=== PATIENT | female | born 1950 | race Caucasian/White ===

== ENCOUNTER 2018-06-25 20:09 | Emergency (ER) | payer OTHER, BC ==
--- NOTE | 2018-06-25 21:24 | RAD REPORT ---
EXAM DESCRIPTION: RAD - Shoulder Left 2 View - 06/25/2018 9:08 pm CLINICAL HISTORY: fall;Pain<Reason For Exam>fall;Pain COMPARISON: No comparisons<Comparisons> TECHNIQUE: Internal and external rotation views of the left shoulder were obtained. FINDINGS: There is no fracture or dislocation. AC joint degenerative changes are present. No AC join t separation suspected. Punctate calcifications seen in the acromial humeral joint space. No acute or suspicious findings. IMPRESSION: Negative two-view left shoulder examination for acute finding.
--- NOTE | 2018-06-25 21:24 | RAD REPORT ---
EXAM DESCRIPTION: RAD - Knee Left 3 View - 06/25/2018 9:08 pm CLINICAL HISTORY: fall;Pain<Reason For Exam>fall;Pain COMPARISON: No comparisons<Comparisons> FINDINGS: No fracture, dislocation or periosteal reaction.Trace amount of joint effusion seen. Media l compartment narrowing seen with moderate size marginal spurs. No soft tissue abnormality. IMPRESSION: Degenerative change and minimal joint effusion as detailed. No acute bone or joint findi ng. Clinical concerns for internal derangement or occult bony injury could be further assessed with MR im aging.
--- NOTE | 2018-06-25 21:43 | RAD REPORT ---
EXAM DESCRIPTION: RAD - Scapula Left - 06/25/2018 9:23 pm CLINICAL HISTORY: PAIN<Reason For Exam>PAIN COMPARISON: Shoulder Left 2 View dated 06/25/2018<Comparisons>Shoulder Left 2 View dated 06/25/2018 TECHNIQUE: AP scapula and scapular Y-views obtained. FINDINGS: No dislocation of the humeral head. Moderate severity degenerative change involves the und ersurface of the acromion. No gross fracture deformity in the body of the scapula. No rib or lung par enchymal acute finding. IMPRESSION: Degenerative changes of the acromion are present. No fracture of the scapula confirmed. If the patient has continued, unexplained symptoms localizing to the scapula, CT imaging could be per formed.
--- NOTE | 2018-06-25 22:07 | ER ---
Nurse's Notes [facility] Name: Rachel Oconnor Age: 68 yrs Sex: Female : 1950 Arrival Date: 06/25/2018 Time: 20:11 Bed 25 Private MD: Diagnosis: Contusion of left knee;Pain in left shoulder;Other slipping, tripping and stumbling and falls Presentation: 06/25 20:15 Presenting complaint: Patient states: I fell at home from standing and hurt my left la1 knee and the left part of lower neck, pt denies LOC. Transition of care: patient was not received from another setting of care. Onset of symptoms was June 25, 2018. Risk Assessment: Do you want to hurt yourself or someone else? Patient reports no desire to harm self or others. Initial Sepsis Screen: Does the patient meet any 2 criteria? No. Patient's initial sepsis screen is negative. Does the patient have a suspected source of infection? No. Patient's initial sepsis screen is negative. Care prior to arrival: None. 20:15 Method Of Arrival: Wheelchair la1 20:15 Acuity: PHIL 3 la1 Triage Assessment: 20:20 General: Appears uncomfortable, obese, Behavior is calm, cooperative, appropriate for fc age. Pain: Complains of pain in back and left leg Quality of pain is described as aching, throbbing, Pain began suddenly, Is continuous, Aggravated by increased activity, repositioning, weight bearing. EENT: No deficits noted. Neuro: Level of Consciousness is awake, alert, obeys commands, Oriented to person, place, time, situation. Cardiovascular: No deficits noted. Respiratory: No deficits noted. GI: No deficits noted. : No deficits noted. Derm: Skin is pink, warm \T\ dry. Musculoskeletal: Circulation, motion, and sensation intact. Capillary refill < 3 seconds, Range of motion: limited in left knee. Injury Description: Abrasion sustained to left knee. Historical: - Allergies: 20:16 Clindamycin; la1 20:16 COFFEE; la1 20:16 Ibuprofen; la1 20:16 Kiwi (Actinidia Chinensis); la1 20:16 PENICILLINS; la1 20:16 Relafen; la1 20:16 Soy; la1 - PMHx: 20:16 Anxiety; Back pain; GERD; High Cholesterol; Hypertension; Thyroid problem; la1 - Immunization history:: Adult Immunizations up to date. - Social history:: Smoking status: Patient/guardian denies using tobacco. - Ebola Screening: : No symptoms or risks identified at this time. Screenin:20 Abuse screen: Denies threats or abuse. Nutritional screening: No deficits noted. fc Tuberculosis screening: No symptoms or risk factors identified. Fall Risk None identified. Assessment: 20:35 Reassessment: No changes from previously documented assessment. Patient and/or family fc updated on plan of care and expected duration. Pain level reassessed. Patient is alert, oriented x 3, equal unlabored respirations, skin warm/dry/pink. see triage assessment. Luis PA in to see and examine pt. 20:45 Reassessment: residential service technician at bedside doing xrays that were ordered. fc 21:10 Reassessment: No changes from previously documented assessment. Patient and/or family fc updated on plan of care and expected duration. Pain level reassessed. Patient is alert, oriented x 3, equal unlabored respirations, skin warm/dry/pink. Pt going to radiology dept to have different view of scapula done. 21:26 Reassessment: Pt has returned. fc 22:00 Reassessment: No changes from previously documented assessment. Patient and/or family fc updated on plan of care and expected duration. Pain level reassessed. Patient is alert, oriented x 3, equal unlabored respirations, skin warm/dry/pink. Pt pending results. Vital Signs: 20:17 BP 127 / 77; Pulse 81; Resp 16; Temp 97.2; Pulse Ox 100% on R/A; la1 22:26 BP 125 / 74; Pulse 71; Resp 18; Temp 98.0(O); Pulse Ox 98% on R/A; Pain 4/10; fc ED Course: 20:11 Patient arrived in ED. ds1 20:16 Triage completed. la1 20:17 Arm band placed on left wrist. la1 20:20 Patient has correct armband on for positive identification. Bed in low position. Call fc light in reach. 20:20 No provider procedures requiring assistance completed. Patient did not have IV access fc during this emergency room visit. 20:24 Luis Fleming PA is PHCP. cp 20:24 Benjy Gonzalez MD is Attending Physician. cp 21:09 XRAY Knee LEFT 3 view In Process Unspecified. EDMS 21:09 XRAY Shoulder LEFT 2 view In Process Unspecified. EDMS 21:15 XRAY Scapula LEFT In Process Unspecified. EDMS 22:06 Judd Marcano MD is Referral Physician. cp 22:26 Knee immobilizer applied on left knee. fc Administered Medications: No medications were administered Outcome: 22:07 Discharge ordered by MD. cp 22:27 Discharged to home via wheelchair, with family. fc 22:27 Condition: good 22:27 Discharge instructions given to patient, family, Instructed on discharge instructions, follow up and referral plans. medication usage, Demonstrated understanding of instructions, follow-up care, medications, splint care, Prescriptions given X 1. 22:43 Patient left the ED. fc Signatures: Dispatcher [employer] Karol Cano RN RN fc Sanford, Demi ds1 Edis Kuo RN RN la1 Luis Fleming, PA PA cp
--- NOTE | 2018-06-25 22:08 | EDPHYS ---
Physician Documentation [facility] Name: Rachel Oconnor Age: 68 yrs Sex: Female : 1950 Arrival Date: 06/25/2018 Time: 20:11 Bed 25 Private MD: ED Physician Benjy Gonzalez HPI: 06/25 20:35 This 68 yrs old Female presents to ER via Wheelchair with complaints of Knee cp Injury, Fall Injury. 20:35 Details of fall: The patient fell from an upright position, while walking. cp 20:35 Onset: The symptoms/episode began/occurred today. cp 20:35 Associated injuries: The patient sustained left knee, abrasion, painful injury, left cp scapular area and left shoulder, painful injury. Severity of symptoms: in the emergency department the symptoms have improved, moderately, patient reports taking [place] prior to arrival for pain. Historical: - Allergies: 20:16 Clindamycin; la1 20:16 COFFEE; la1 20:16 Ibuprofen; la1 20:16 Kiwi (Actinidia Chinensis); la1 20:16 PENICILLINS; la1 20:16 Relafen; la1 20:16 Soy; la1 - PMHx: 20:16 Anxiety; Back pain; GERD; High Cholesterol; Hypertension; Thyroid problem; la1 - Immunization history:: Adult Immunizations up to date. - Social history:: Smoking status: Patient/guardian denies using tobacco. - Ebola Screening: : No symptoms or risks identified at this time. ROS: 20:40 Constitutional: Negative for body aches, chills, fever, poor PO intake. cp 20:40 Eyes: Negative for injury, pain, redness, and discharge. cp 20:40 ENT: Negative for drainage from ear(s), ear pain, difficulty swallowing, difficulty handling secretions. 20:40 Cardiovascular: Negative for chest pain, edema, palpitations. 20:40 Respiratory: Negative for cough, shortness of breath, wheezing. 20:40 Abdomen/GI: Negative for abdominal pain, nausea, vomiting, and diarrhea. 20:40 Back: Negative for decreased range of motion, pain at rest, pain with movement. 20:40 MS/extremity: Positive for pain, of the left knee and left shoulder and left scapula, Negative for deformity, paresthesias. 20:40 Skin: Positive for abrasion(s), of the anterior aspect left knee. 20:40 Neuro: Negative for altered mental status, headache, loss of consciousness, syncope, near syncope, visual changes, weakness. 20:40 All other systems are negative. Exam: 20:45 Constitutional: The patient appears in no acute distress, alert, awake, cp non-diaphoretic, non-toxic, well developed, well nourished. 20:45 Head/Face: Normocephalic, atraumatic. Eyes: Pupils equal round and reactive to light, cp extra-ocular motions intact. Lids and lashes normal. Conjunctiva and sclera are non-icteric and not injected. Cornea within normal limits. Periorbital areas with no swelling, redness, or edema. ENT: Nares patent. No nasal discharge, no septal abnormalities noted. Tympanic membranes are normal and external auditory canals are clear. Oropharynx with no redness, swelling, or masses, exudates, or evidence of obstruction, uvula midline. Mucous membranes moist. 20:45 Neck: C-spine: vertebral tenderness, is not appreciated, crepitus, is not appreciated, ROM/movement: is normal, is supple, without pain, no range of motions limitations, no nuchal rigidity. 20:45 Chest/axilla: Inspection: normal, Palpation: is normal, no crepitus, no tenderness. 20:45 Cardiovascular: Rate: normal, Rhythm: regular, Edema: is not appreciated, JVD: is not appreciated. 20:45 Respiratory: the patient does not display signs of respiratory distress, Respirations: normal, no use of accessory muscles, no retractions, no splinting, no tachypnea, labored breathing, is not present, Breath sounds: are clear throughout, no decreased breath sounds, no stridor, no wheezing. 20:45 Abdomen/GI: Inspection: abdomen appears normal, Bowel sounds: active, all quadrants, Palpation: abdomen is soft and non-tender, in all quadrants. 20:45 Back: pain, that is mild, of the left scapular area, ROM is normal, vertebral tenderness, is not appreciated. 20:45 Musculoskeletal/extremity: Joints: All joints are normal except the left knee displays painful range of motion, swelling, tenderness, abrasion. 20:45 Neuro: Orientation: to person, place \T\ time. Mentation: lucid, able to follow commands, Cerebellar function: is grossly normal, Motor: moves all fours, strength is normal, Sensation: no obvious gross deficits. Vital Signs: 20:17 BP 127 / 77; Pulse 81; Resp 16; Temp 97.2; Pulse Ox 100% on R/A; la1 22:26 BP 125 / 74; Pulse 71; Resp 18; Temp 98.0(O); Pulse Ox 98% on R/A; Pain 4/10; fc Procedures: 22:30 Splinting: Splint applied to left knee using knee immobilizer, applied by nurse. cp Examined by me, post splint application: neurovascular intact, Patient tolerated well. 22:30 Crutch training provided to patient and/or family. Return demonstration given. cp MDM: 20:24 Patient medically screened. cp 21:00 Differential diagnosis: abrasion, closed head injury, contusion, fracture, multiple cp trauma. 22:05 Data reviewed: vital signs, nurses notes, radiologic studies, plain films, and as a cp result, I will discharge patient. 22:05 Test interpretation: by ED physician or midlevel provider: plain radiologic studies. cp Counseling: I had a detailed discussion with the patient and/or guardian regarding: the historical points, exam findings, and any diagnostic results supporting the discharge/admit diagnosis, radiology results, to return to the emergency department if symptoms worsen or persist or if there are any questions or concerns that arise at home. ED course: VSS. Xrays negative for acute fracture. Will discharge to home for continued monitoring. 06/25 20:33 Order name: XRAY Knee LEFT 3 view; Complete Time: 21:49 cp 06/25 21:49 Interpretation: Report reviewed. cp 06/25 20:33 Order name: XRAY Shoulder LEFT 2 view; Complete Time: 21:49 cp 06/25 21:50 Interpretation: Report reviewed. cp 06/25 20:55 Order name: XRAY Scapula LEFT; Complete Time: 21:49 cp 06/25 21:50 Interpretation: Report reviewed. cp 06/25 21:59 Order name: Knee Immobilizer; Complete Time: 22:26 cp Administered Medications: No medications were administered Disposition: 06/25/18 22:07 Discharged to Home. Impression: Contusion of left knee, Pain in left shoulder, Other slipping, tripping and stumbling and falls. - Condition is Stable. - Discharge Instructions: Contusion, Shoulder Pain, Knee Pain. - Prescriptions for Cyclobenzaprine 10 mg Oral Tablet - take 1 tablet by ORAL route every 8 hours As needed no driving while taking medication; 20 tablet. - Medication Reconciliation Form, Thank You Letter, Antibiotic Education, Prescription Opioid Use form. - Follow up: Judd Marcano MD; When: 2 - 3 days; Reason: Recheck today's complaints. - Problem is new. - Symptoms have improved. Addendum: 06/27/2018 02:47 Co-signature as Attending Physician, Benjy Gonzalez MD I agree with the assessment and t w4 plan of care. Attestation: The patient's history, exam findings, diagnostics, and a summary of any interventions or procedures was reviewed in detail with Luis POLANCO. Signatures: Dispatcher [employer] EDKarol Arredondo RN RN Edis Kuo RN RN la1 Luis Fleming PA PA cp Wadley, Terrence, MD MD tw4 Corrections: (The following items were deleted from the chart) 06/25 22:26 21:59 Crutches ordered. cp 22:43 22:07 06/25/2018 22:07 Discharged to Home. Impression: Contusion of left knee; Pain in fc left shoulder; Other slipping, tripping and stumbling and falls. Condition is Stable. Forms are Medication Reconciliation Form, Thank You Letter, Antibiotic Education, Prescription Opioid Use. Follow up: Judd Marcano; When: 2 - 3 days; Reason: Recheck today's complaints. Problem is new. Symptoms have improved. cp
== END 2018-06-25 22:43 | disposition home or self-care (01) ==
LOC: ER 20:09
DX: S80.02XA Contusion of left knee, initial encounter (principal); M25.512 Pain in left shoulder; W01.0XXA Fall on same level from slipping, tripping and stumbling without subsequent striking against object, initial encounter; Y93.01 Activity, walking, marching and hiking; M54.9 Dorsalgia, unspecified; K21.9 Gastro-esophageal reflux disease without esophagitis; I10 Essential (primary) hypertension; E78.00 Pure hypercholesterolemia, unspecified; E07.9 Disorder of thyroid, unspecified; Z88.6 Allergy status to analgesic agent; Z88.1 Allergy status to other antibiotic agents; Z88.0 Allergy status to penicillin; Z88.8 Allergy status to other drugs, medicaments and biological substances; Z91.018 Allergy to other foods; F41.9 Anxiety disorder, unspecified; E66.9 Obesity, unspecified
CPT/HCPCS: 73010; 99283

== ENCOUNTER 2019-08-30 16:45 | Emergency (ER) | payer OTHER, BC ==
[2019-08-30] MEDS ORDERED: LIDOCAINE 1% MPF 5 ML VIAL ONE (18:17)
[2019-08-30] MEDS ORDERED: BUPIVACAINE 0.5% PF 10 ML VIAL ONE (18:17)
--- NOTE | 2019-08-30 19:57 | ER ---
Nurse's Notes [facility] Name: Rachel Oconnor Age: 69 yrs Sex: Female : 1950 Arrival Date: 08/30/2019 Time: 16:46 Bed 27 Private MD: Diagnosis: Laceration without foreign body of thumb without damage to nail-right Presentation: 08/30 17:06 Presenting complaint: Patient states: "I cut my right thumb with a chicken bone". aa5 Bleeding controlled, band-aid in place. Transition of care: patient was not received from another setting of care. Complicating Factors: There are no complicating factors for this patient. Onset of symptoms was August 30, 2019. Risk Assessment: Do you want to hurt yourself or someone else? Patient reports no desire to harm self or others. Initial Sepsis Screen: Does the patient meet any 2 criteria? No. Patient's initial sepsis screen is negative. Does the patient have a suspected source of infection? No. Patient's initial sepsis screen is negative. Care prior to arrival: None. 17:06 Acuity: PHIL 4 aa5 17:06 Method Of Arrival: Ambulatory aa5 Historical: - Allergies: 17:07 Clindamycin; aa5 17:07 Ibuprofen; aa5 17:07 PENICILLINS; aa5 17:07 Soy; aa5 17:07 Relafen; aa5 17:07 Kiwi (Actinidia Chinensis); aa5 17:07 COFFEE; aa5 17:07 shrimp; aa5 - PMHx: 17:07 Anxiety; Back pain; GERD; High Cholesterol; Hypertension; Thyroid problem; aa5 - Immunization history:: Last tetanus immunization: unknown. - Social history:: Smoking status: Patient/guardian denies using tobacco. - Ebola Screening: : No symptoms or risks identified at this time. Screenin:00 Abuse screen: Denies threats or abuse. Denies injuries from another. Nutritional sg screening: No deficits noted. Tuberculosis screening: No symptoms or risk factors identified. Never had TB. Fall Risk None identified. Assessment: 18:00 General: Appears in no apparent distress. well groomed, well developed, well nourished, sg Behavior is calm, cooperative, appropriate for age. Pain: Complains of pain in palmar aspect of proximal phalanx of right thumb Quality of pain is described as tender, throbbing. Neuro: Level of Consciousness is awake, alert, obeys commands, Oriented to person, place, time. Cardiovascular: Capillary refill is brisk in bilateral fingers Patient's skin is warm and dry. Chest pain is denied. Respiratory: Airway is patent Respiratory effort is even, unlabored, Respiratory pattern is regular, symmetrical. GI: No signs and/or symptoms were reported involving the gastrointestinal system. : No signs and/or symptoms were reported regarding the genitourinary system. EENT: No signs and/or symptoms were reported regarding the EENT system. Derm: Skin is pink, warm \\T\\ dry. Musculoskeletal: Circulation, motion, and sensation intact. Range of motion: intact in all extremities. Injury Description: Laceration sustained to palmar aspect of proximal phalanx of right thumb is contaminated, superficial, 0.5 to 2.5 cm long, not bleeding, is bleeding a small amount. 18:53 Reassessment: Patient appears in no apparent distress at this time. pt right hand sg placed into iodine/chlorhexidine/NS at this time. 20:21 Reassessment: Patient appears in no apparent distress at this time. mg2 Vital Signs: 17:08 BP 110 / 62; Pulse 60; Resp 16 S; Temp 97.8(TE); Pulse Ox 97% on R/A; Weight 113.4 kg aa5 (R); Height 5 ft. 8 in. (172.72 cm) (R); Pain 4/10; 19:30 BP 108 / 78; Pulse 61; Resp 18; Pulse Ox 100% ; mg2 20:21 BP 110 / 78; Pulse 65; Resp 18; Temp 98; Pulse Ox 100% on R/A; mg2 17:08 Body Mass Index 38.01 (113.40 kg, 172.72 cm) aa5 ED Course: 16:46 Patient arrived in ED. as 17:06 Triage completed. aa5 17:06 Arm band placed on. aa5 18:00 No provider procedures requiring assistance completed. Wound care: to laceration sg located on palmar aspect of proximal phalanx of right thumb was soaked in NS.BETADINE,CHLOROHEX Patient tolerated well. 18:11 Luis Fleming PA is PHCP. cp 18:11 Salo Prince MD is Attending Physician. cp 18:16 Soler, Uriel, RN is Primary Nurse. sg 20:21 Patient has correct armband on for positive identification. mg2 20:21 Patient did not have IV access during this emergency room visit. Dressings: mg2 non-adherent dressing x 1 palmar aspect of proximal phalanx of right thumb. Administered Medications: 20:06 Drug: Tetanus-Diphtheria Toxoid Adult 0.5 ml {[employer]: [employer]. Exp: mg2 03/30/2021. Lot #: [id number]. } Route: IM; Site: left deltoid; 20:21 Follow up: Response: No adverse reaction; Medication administered at discharge. mg2 Outcome: 19:57 Discharge ordered by MD. cp 20:22 Discharged to home ambulatory. mg2 20:22 Condition: stable 20:22 Discharge instructions given to patient, Instructed on discharge instructions, follow up and referral plans. medication usage, wound care, Demonstrated understanding of instructions, follow-up care, medications, wound care, Prescriptions given X 1. 20:22 Patient left the ED. mg2 Signatures: Uriel Soler, RN RN Iram Eden Audri, RN RN aa5 Luis Fleming, SHERRI PA cp Jacobo Hardin, LADI RN mg2
--- NOTE | 2019-08-30 19:57 | EDPHYS ---
Physician Documentation [facility] Name: Rachel Oconnor Age: 69 yrs Sex: Female : 1950 Arrival Date: 08/30/2019 Time: 16:46 Bed 27 Private MD: ED Physician Salo Prince HPI: 08/30 18:16 This 69 yrs old Female presents to ER via Ambulatory with complaints of cp Laceration - Thumb. 18:16 The patient or guardian reports a laceration, dirty. cp 18:16 The complaints affect the proximal phalanx right thumb. Context: resulted from sharp cp edge of cooked chicken bone. Onset: The symptoms/episode began/occurred just prior to arrival. Associated signs and symptoms: Pertinent negatives: cyanosis distally, decreased sensation distally. Severity of symptoms: in the emergency department the symptoms have improved, bleeding controlled. Historical: - Allergies: 17:07 Clindamycin; aa5 17:07 Ibuprofen; aa5 17:07 PENICILLINS; aa5 17:07 Soy; aa5 17:07 Relafen; aa5 17:07 Kiwi (Actinidia Chinensis); aa5 17:07 COFFEE; aa5 17:07 shrimp; aa5 - PMHx: 17:07 Anxiety; Back pain; GERD; High Cholesterol; Hypertension; Thyroid problem; aa5 - Immunization history:: Last tetanus immunization: unknown. - Social history:: Smoking status: Patient/guardian denies using tobacco. - Ebola Screening: : No symptoms or risks identified at this time. ROS: 18:30 Constitutional: Negative for body aches, chills, fever, poor PO intake. cp 18:30 Eyes: Negative for injury, pain, redness, and discharge. cp 18:30 ENT: Negative for drainage from ear(s), ear pain, sore throat, difficulty swallowing, difficulty handling secretions. 18:30 Cardiovascular: Negative for chest pain, palpitations. 18:30 MS/extremity: Positive for pain, of the right thumb, Negative for decreased range of motion, deformity, paresthesias. 18:30 Skin: Positive for laceration(s), of the right thumb. 18:30 All other systems are negative. Exam: 18:35 Constitutional: The patient appears in no acute distress, alert, awake, non-toxic, well cp developed, well nourished. 18:35 Head/Face: Normocephalic, atraumatic. cp 18:35 Musculoskeletal/extremity: ROM: full active range of motion, in the right thumb, Perfusion: the extremity is normally perfused throughout, Sensation intact. 18:35 Skin: injury, laceration(s), the wound is approximately 1.5 cm(s), of the proximal phalanx right thumb, that can be described as contaminated, no foreign body, linear, without bleeding. Vital Signs: 17:08 BP 110 / 62; Pulse 60; Resp 16 S; Temp 97.8(TE); Pulse Ox 97% on R/A; Weight 113.4 kg aa5 (R); Height 5 ft. 8 in. (172.72 cm) (R); Pain 4/10; 19:30 BP 108 / 78; Pulse 61; Resp 18; Pulse Ox 100% ; mg2 20:21 BP 110 / 78; Pulse 65; Resp 18; Temp 98; Pulse Ox 100% on R/A; mg2 17:08 Body Mass Index 38.01 (113.40 kg, 172.72 cm) aa5 MDM: 18:13 Patient medically screened. cp 18:40 Differential diagnosis: open fracture, closed fracture, retained foreign body. cp 19:55 Data reviewed: vital signs, nurses notes. cp 19:55 Counseling: I had a detailed discussion with the patient and/or guardian regarding: the cp historical points, exam findings, and any diagnostic results supporting the discharge/admit diagnosis, the need for outpatient follow up, a family practitioner, to return to the emergency department if symptoms worsen or persist or if there are any questions or concerns that arise at home. Response to treatment: the patient's symptoms have markedly improved after treatment. ED course: VSS. Laceration cleaned and irrigated with dressing applied. Will discharge to home for continued monitoring. Did not suture wound due to nature of injury. Administered Medications: 20:06 Drug: Tetanus-Diphtheria Toxoid Adult 0.5 ml {Licensed Mortician: [employer]. Exp: mg2 03/30/2021. Lot #: [id number]. } Route: IM; Site: left deltoid; 20:21 Follow up: Response: No adverse reaction; Medication administered at discharge. mg2 Disposition: 08/31 07:59 Co-signature as Attending Physician, Salo Prince MD I agree with the assessment and kdr plan of care. Disposition: 08/30/19 19:57 Discharged to Home. Impression: Laceration without foreign body of thumb without damage to nail - right. - Condition is Stable. - Discharge Instructions: Laceration Care, Adult. - Prescriptions for Doxycycline Hyclate 100 mg Oral Tablet - take 1 tablet by ORAL route every 12 hours; 20 tablet. - Medication Reconciliation Form, Thank You Letter, Antibiotic Education, Prescription Opioid Use form. - Follow up: Private Physician; When: 2 - 3 days; Reason: Wound Recheck. - Problem is new. - Symptoms have improved. Signatures: Salo Prince MD MD kdr Swetha Pascual RN RN aa5 Luis Fleming PA PA cp Jacobo Hardin RN RN mg2 Corrections: (The following items were deleted from the chart) 08/30 19:58 19:57 08/30/2019 19:57 Discharged to Home. Impression: Laceration without foreign body cp of thumb without damage to nail. Condition is Stable. Forms are Medication Reconciliation Form, Thank You Letter, Antibiotic Education, Prescription Opioid Use. Follow up: Private Physician; When: 2 - 3 days; Reason: Wound Recheck. Problem is new. Symptoms have improved. cp 20:22 19:58 08/30/2019 19:57 Discharged to Home. Impression: Laceration without foreign body mg2 of thumb without damage to nail - right. Condition is Stable. Forms are Medication Reconciliation Form, Thank You Letter, Antibiotic Education, Prescription Opioid Use. Follow up: Private Physician; When: 2 - 3 days; Reason: Wound Recheck. Problem is new. Symptoms have improved. cp
[2019-08-30] MEDS ORDERED: TETANUS & DIPHTHERIA TOX,ADULT 0.5 ML VIAL ONE (19:59)
[2019-08-30 20:31] VITALS: O2SAT 100
[2019-08-30 20:32] VITALS: BP 110/78; TEMP 98
--- OUTSIDE RECORDS SUMMARY | 2019-09-04 01:52 | XMS REPORT ---
:1950 Author Organization eClinicalWorks Care Team Providers Name Role Phone Naveen David Provider Role Unavailable Allergies, Adverse Reactions, Alerts Substance Reaction Event Type clindamycin Info Not Available Drug Allergy PCN Info Not Available Drug Allergy Relaform Info Not Available Drug Allergy Colchicine Info Not Available Drug Allergy Carafate Info Not Available Drug Allergy Problems Problem Type Condition Code Onset Dates Condition Status Assessment Hemorrhagic prepatellar bursitis M70.42 Active of left knee Problem Hemorrhagic prepatellar bursitis M70.42 Active of left knee Problem Contusion of left knee, initial S80.02XA Active encounter Problem Contusion of left knee, subsequent S80.02XD Active encounter Assessment Pain in joint of left knee M25.562 Active Assessment Contusion of left knee, subsequent S80.02XD Active encounter Problem Pain in joint of left knee M25.562 Active Medications Medication Code Code Instructions Start End Status Dosage System Date Date Lisinopril [facility] 91866945897 10 MG Oral Active not defined Simvastatin [facility] 65529415021 20 MG Oral Active not defined Fluticasone [facility] 23427275509 50 MCG/ACT Nasal Active not Propionate defined Metoprolol [facility] 53367387825 50 MG Oral Active not Succinate ER defined Trospium [facility] 77190898209 20 MG Oral Active not Chloride defined Pomeroy [facility] 02473051424 10-325 MG Orally Active 1 tablet every 6 hrs as needed Furosemide [facility] 93003303890 20 MG Oral Active not defined Celecoxib [facility] 49316740981 200 MG Oral Active not defined Tizanidine HCl ND 40221805340 4 MG Oral Active not defined Xyzal Allergy [facility] 21952459859 5 MG Orally Once Active 1 tablet 24HR a day in the evening Hydrocodone-Monster [facility] 95511828426 7.5-325 MG Oral Active not taminophen defined Results No Known Results Summary Purpose eClinicalWorks Submission
--- OUTSIDE RECORDS SUMMARY | 2019-09-04 01:52 | XMS REPORT ---
[...] Condition Code Onset Dates Condition Status Assessment Contusion of left knee, subsequent S80.02XD Active encounter Problem Contusion of left knee, subsequent S80.02XD Active encounter Problem Hemorrhagic prepatellar bursitis M70.42 Active of left knee Problem Localized edema R60.0 Active Assessment Pain in joint of left knee M25.562 Active Problem Pain in joint of left knee M25.562 Active Problem Contusion of left knee, initial S80.02XA Active encounter Medications Medication Code Code Instructions Start End Status Dosage System Date Date Clayton [facility] 65441778356 10-325 MG Orally Active 1 tablet every 6 hrs as needed Hydrocodone-Monster [facility] 23062545465 7.5-325 MG Oral Active not taminophen defined Fluticasone [facility] 10397409569 50 MCG/ACT Nasal Active not Propionate defined Furosemide [facility] 35190970162 20 MG Oral Active not defined Xyzal Allergy [facility] 88288759043 5 MG Orally Once Active 1 tablet 24HR a day in the evening Lisinopril ND 71036458674 10 MG Oral Active not defined Metoprolol ND 40946218244 50 MG Oral Active not Succinate ER defined Trospium ND 83113770749 20 MG Oral Active not Chloride defined Celecoxib [facility] 44056434375 200 MG Oral Active not defined Tizanidine HCl ND 70164122336 4 MG Oral Active not defined Simvastatin ND 72100969928 20 MG Oral Active not defined Results No Known Results Summary Purpose eClinicalWorks Submission
--- OUTSIDE RECORDS SUMMARY | 2019-09-04 01:52 | XMS REPORT ---
:1950 Author Organization [employer] Care Team Providers Name Role Phone David Hodge Provider Role Unavailable Allergies, Adverse Reactions, Alerts Substance Reaction Event Type clindamycin Info Not Available Drug Allergy PCN Info Not Available Drug Allergy Relaform Info Not Available Drug Allergy Colchicine Info Not Available Drug Allergy Carafate Info Not Available Drug Allergy Problems Problem Type Condition Code Onset Dates Condition Status Problem Pain in joint of left knee M25.562 Active Problem Contusion of left knee, initial S80.02XA Active encounter Assessment Pain in joint of left knee M25.562 Active Assessment Contusion of left knee, initial S80.02XA Active encounter Medications Medication Code Code Instructions Start End Status Dosage System Date Date Hydrocodone-Monster [facility] 58952664718 7.5-325 MG Oral Active not taminophen defined Xyzal Allergy [facility] 35817747327 5 MG Orally Once Active 1 tablet 24HR a day in the evening Celecoxib [facility] 31358274803 200 MG Oral Active not defined Trospium [facility] 08233364234 20 MG Oral Active not Chloride defined Lisinopril [facility] 21483767061 10 MG Oral Active not defined Bluemont [facility] 26075194176 10-325 MG Orally Active 1 tablet every 6 hrs as needed Furosemide [facility] 03505599758 20 MG Oral Active not defined Fluticasone [facility] 38074154874 50 MCG/ACT Nasal Active not Propionate defined Metoprolol [facility] 05820625761 50 MG Oral Active not Succinate ER defined Tizanidine HCl [facility] 99926738261 4 MG Oral Active not defined Simvastatin ND 23811472350 20 MG Oral Active not defined Results No Known Results Summary Purpose eClinicalWorks Submission
--- OUTSIDE RECORDS SUMMARY | 2019-09-04 01:52 | XMS REPORT ---
:1950 Author Organization [facility] Address [address] [place] [address] Care Team Providers Name Role Phone Unavailable Unavailable Unavailable Payers Payer Name Policy Type Policy Number Effective Date Expiration Date Problems This patient has no known problems. Allergies, Adverse Reactions, Alerts Allergy Name Allergy Status Severity Reaction(s) Onset Inactive Treating Comments Type Date Date Clinician soy DA Active U 2009-12 isoflav 00:00:0 0 Shellfish DA Active U 2009-12 00:00:0 0 clindamycin DA Active U 2009-12 00:00:0 0 ramipril DA Active U 2009-12 00:00:0 0 nabumetone DA Active U 2009-12 00:00:0 0 penicillin G DA Active U 2009-12 00:00:0 0 milk FA Active U 2009-12 00:00:0 0 kiwi FA Active U 2009-12 00:00:0 0 coffee FA Active U 2009-12 ( arabica) 00:00:0 0 CHOCOLATE DA Active U 2009-12 00:00:0 0 EGGS DA Active U 2009-12 00:00:0 0 MELONS DA Active U 2009-12 00:00:0 0 PEARS DA Active U 2009-12 00:00:0 0 Medications This patient has no known medications. Results Test Description Test Time Test Comments Text Results Atomic Results Result Comments IMMUNOGLOBULIN E 2019-08-17 13:10:00 Test Item Value Reference Range Comments IMMUNOGLOBULIN E (test code=IGE) 90 IU/mL 6-495 Performed At: [facility] [id number] Sanjai MD Ph:[phone] - XR [id number] 12:16:00 Name: MATTHEW HAYESland : 1950 Age/S: 69 / F [address] Unit #: [id number] Loc: [place] [address] Phys: Agus Che MD Acct: [id number] Dis Date: Status: REG CLI PHONE #: [phone] Exam Date: 08/14/2019 1047 FAX #: Reason: J45.998 EXAMS: CPT: [id number] XR ESOPHAGUS 47836 Fluoro Time: 234 DAP (Gy m2): Air Kerma (mGy): 34.30 EXAMINATION: - XR ESOPHAGUS. LOCATION: S17. HISTORY : J45.998, asthma, occasional difficulty with food. COMPARISON: None. TECHNIQUE: Single and double contrast upper GI was performed with barium oral contrast and overhead spot films were obtained. Fluoroscopic time: 234 seconds. 34.30 mGy. FINDINGS: Senior Net Architect image of the chest appears unremarkable with atherosclerosis involving aortic arch. The esophagus is unremarkable in course andcaliber. Esophageal mucosal pattern is unremarkable. Gastroesophageal junction is normally positioned. The visualized proximal stomach appears unremarkable. Esophageal peristalsis demonstrates tertiary contractions involving distal esophagus. Possible small hiatal hernia. Gastroesophageal reflux was not seen during the procedure. Contrast residual was noted in the hypopharynx. 13 mm barium pill flowed smoothly into the stomach. IMPRESSION: Contrast residual noted in hypopharynx. Tertiary contractions involving distal esophagus. Possible small hiatal hernia. at 1216 Reported and signed by: Tanisha Fischer M.D. CC: Agus Che MD; Sagar Shelley MD PAGE 1 Signed Report Name: MATTHEW HAYESland : 1950 Age/S: 69/ F [address] Unit #: [id number] Loc: [place] [address] Phys: Agus Che MD Acct: [id number] Dis Date: Status: REG CLI PHONE #: [phone] Exam Date: 08/14/2019 1047 FAX #: Reason: J45.998 EXAMS: CPT: [id number] XR ESOPHAGUS 74600 Fluoro Time: 234DAP (Gy m2): Air Kerma (mGy): 34.30 <Continued> Technologist: Any Charles RT(R) Trnscb Date /Time: 08/14/2019 (7506) [email or web address] Orig Print D/T: S: 08/14/2019 (2856) PAGE 2 Signed Report- XR CHEST 2 [id number] 11:13:00 Name: MATTHEW HAYES : 1950 Age/S: 69 / F [address] Unit #: [id number] Loc: [place] [address] Phys: Agus Che MD Acct: [id number] Dis Date: Status: REG CLI PHONE #: [phone] Exam Date: 08/14/2019 1038 FAX #: Reason: J45.998 EXAMS: CPT: [id number] XR CHEST 2 V 39691 Fluoro Time: DAP (Gy m2): Air Kerma (mGy): EXAMINATION: - XR CHEST 2 V. LOCATION: S17. HISTORY: J45.998. COMPARISON: None. FINDINGS:Examination limited due to patient body habitus. Cardiac silhouette/Mediastinal contour: Within normal limits. Atherosclerotic calcification of aortic arch. Lungs: Nofocal consolidation. No pleural effusion. Biapical thickening/scarring. Osseous Structures: Degenerative changes of thoracic spine. Additional Findings: Postoperativeclips project over right upper abdomen. IMPRESSION: No focal consolidation. at 1113 Reported and signed by: Tanisha Fischer M.D. CC: Agus Che MD; Sagar Shelley MD PAGE 1 Signed Report Name: MATTHEW HAYES [facility] : 1950 Age/S: 69 / F [address]: [id number] Loc: [place] [address] Phys: Agus Che MD Acct: [id number] Dis Date: Status:REG CLI PHONE #: [phone] Exam Date: 08/14/2019 1038 FAX #: Reason: J34.297 EXAMS: CPT: [id number] XR CHEST 2 V 45857 Fluoro Time: DAP (Gy m2): Air Kerma (mGy): <Continued> Technologist: Any Charles RT(R) Trnscb Date /Time: 08/14/2019 (1113) [email or web address] Orig Print D/T: S: (1117) PAGE 2 Signed ReportCBC W/AUTO [id number] 10:25:00 Test Item Value Reference Range Comments WHITE BLOOD CELL (test code=WBC) 6.3 K/mm3 3.5-11.0 RED BLOOD CELL (test code=RBC) 4.80 M/mm3 4.70-6.10 HEMOGLOBIN (test code=HGB) 14.1 G/DL 10.4-14.9 HEMATOCRIT (test code=HCT) 41.2 % 31.5-44.1 MEAN CELL VOLUME (test code=MCV) 85.8 Fl 84.5-98.6 MEAN CELL HGB (test code=MCH) 29.4 pg 27.0-34.2 MEAN CELL HGB CONCETRATION (test code=MCHC) 34.2 G/DL 31.5-34.0 RED CELL DISTRIBUTION WIDTH (test code=RDW) 14.0 SD 11.5-14.5 PLATELET COUNT (test code=PLT) 250.0 K/mm3 150-450 MEAN PLATELET VOLUME (test code=MPV) 9.30 fL 7.0-10.5 NEUTROPHIL % (test code=NT%) 60.9 % 40-76 LYMPHOCYTE % (test code=LY%) 27.2 % 20.5-51.1 MONOCYTE % (test code=MO%) 8.1 % 1.7-9.3 EOSINOPHIL % (test code=EO%) 3.3 % 0.0-6.0 BASOPHIL % (test code=BA%) 0.5 % 0.0-2.0 NEUTROPHIL # (test code=NT#) 3.86 K/mm3 1.8-7.6 LYMPHOCYTE # (test code=LY#) 1.7 K/mm3 0.6-3.2 MONOCYTE # (test code=MO#) 0.5 K/mm3 0.3-1.1 EOSINOPHIL # (test code=EO#) 0.2 K/mm3 0.0-0.4 BASOPHIL # (test code=BA#) 0.0 K/mm3 0.0-0.1 MANUAL DIFF REQUIRED (test code=MDIFF) NO DIFF/SCN CRITERIA
--- OUTSIDE RECORDS SUMMARY | 2019-09-04 01:52 | XMS REPORT ---
:1950 Author Organization eClinicalWorks Care Team Providers Name Role Phone Hodge David Provider Role Unavailable Allergies, Adverse Reactions, Alerts Substance Reaction Event Type clindamycin Info Not Available Drug Allergy PCN Info Not Available Drug Allergy Relaform Info Not Available Drug Allergy Colchicine Info Not Available Drug Allergy Carafate Info Not Available Drug Allergy Problems Problem Type Condition Code Onset Dates Condition Status Assessment Localized edema R60.0 Active Assessment Contusion of left knee, subsequent S80.02XD Active encounter Assessment Hemorrhagic prepatellar bursitis M70.42 Active of left knee Problem Contusion of left knee, subsequent S80.02XD Active encounter Problem Hemorrhagic prepatellar bursitis M70.42 Active of left knee Problem Localized edema R60.0 Active Assessment Pain in joint of left knee M25.562 Active Problem Pain in joint of left knee M25.562 Active Problem Contusion of left knee, initial S80.02XA Active encounter Medications Medication Code Code Instructions Start End Status Dosage System Date Date Simvastatin [facility] 78512070379 20 MG Oral Active not defined Lisinopril [facility] 35210189885 10 MG Oral Active not defined Celecoxib [facility] 16665763761 200 MG Oral Active not defined Hansen [facility] 29405088579 10-325 MG Orally Active 1 tablet every 6 hrs as needed Metoprolol [facility] 80388902454 50 MG Oral Active not Succinate ER defined Trospium [facility] 19129276725 20 MG Oral Active not Chloride defined Tizanidine HCl ND 05699320016 4 MG Oral Active not defined Furosemide ND 02112699789 20 MG Oral Active not defined Xyzal Allergy [facility] 31540110855 5 MG Orally Once Active 1 tablet 24HR a day in the evening Hydrocodone-Monster [facility] 66197427680 7.5-325 MG Oral Active not taminophen defined Fluticasone [facility] 08429618788 50 MCG/ACT Nasal Active not Propionate defined Results No Known Results Summary Purpose eClinicalWorks Submission
== END 2019-08-30 20:22 | disposition home or self-care (01) ==
LOC: ER 16:45
DX: S61.011A Laceration without foreign body of right thumb without damage to nail, initial encounter (principal); I10 Essential (primary) hypertension; W26.8XXA Contact with other sharp object(s), not elsewhere classified, initial encounter; Y93.9 Activity, unspecified; Y92.9 Unspecified place or not applicable; Z23 Encounter for immunization; Z88.0 Allergy status to penicillin; Z88.1 Allergy status to other antibiotic agents; Z88.6 Allergy status to analgesic agent; Z91.013 Allergy to seafood; Z91.018 Allergy to other foods
CPT/HCPCS: 90471; 90714; 99283

== ENCOUNTER 2022-04-07 01:35 | Emergency (ER) | payer OTHER, BC ==
--- OUTSIDE RECORDS SUMMARY | 2022-04-07 01:38 | XMS REPORT | Clinical Summary ---
:1950 Author Organization [facility] MD Garcia [facility] Address [address] [place] [address] Care Team Providers Name Role Phone Maria Luisa Waggoner APN Primary Care Provider Allergies Active Allergy Reactions Severity Noted Date Comments Clindamycin Rash, Other (See Comments) Low 11/30/2008 O ther reaction(s): Unknown - See c omments Cochineal Rash Low 10/31/2021 Nabumetone Rash, Other (See Comments) Low 11/30/2008 Oxybutynin Diarrhea, Other (See 09/26/2021 Comments) Penicillins Rash, Other (See Comments) Low 11/30/2008 Ramipril Other (See Comments) 11/30/2008 Sucralfate Other (See Comments), 09/26/2021 Swelling Medications Medication Sig Dispensed Refills Start Date End Date Status albuterol (ProAir HFA) as needed. 0 Active 90 mcg/puff inhaler budesonide-formoterol as needed. 0 Active (SYMBICORT) 160-4.5 mcg/actuation inhaler celecoxib (CeleBREX) 200 Take 1 capsule 0 Active mg capsule by mouth daily. dexlansoprazole Take 1 capsule 0 Active (DEXILANT) 60 mg capsule by mouth daily. dicyclomine (BENTYL) 20 Take 1 tablet by 0 Active mg tablet mouth twice daily. escitalopram (LEXAPRO) Take 1 tablet by 0 Active 20 mg tablet mouth daily. fesoterodine (Toviaz) 4 Take 1 tablet by 0 Active mg Tb24 mouth daily. fluticasone as needed. 0 Active propionate-salmeterol (ADVAIR) 100 mcg-50 mcg/inhalation diskus inhaler furosemide (LASIX) 20 mg Take 1 tablet by 0 Active tablet mouth daily. gabapentin enacarbil Take 2 tablets 0 Active (Horizant) 600 mg TbER by mouth daily. HYDROcodone-acetaminophe Take 1 tablet by 0 Active n (NORCO) 7.5 mg-325 mg mouth 3 (three) per tablet times a day. levocetirizine (XYZAL) 5 Take 1 tablet by 0 Active MG tablet mouth daily. lisinopril Take 1 tablet by 0 Ac tive (PRINIVIL,ZESTRIL) 10 mg mouth daily. tablet METHIMAZOLE ORAL Take 15 mg by 0 Active mouth daily. metoprolol Take 1 tablet by 0 Ac tive russell-hydrochlorothiaz mouth daily. 50-12.5 mg Tb24 mirabegron (Myrbetriq) daily. 0 Active 50 mg 24 hr tablet montelukast (SINGULAIR) daily. 0 Active 10 mg tablet simvastatin (ZOCOR) 20 Take 1 tablet by 0 08/12/2021 Active mg tablet mouth daily. tiZANidine (ZANAFLEX) 4 Take 1 tablet by 0 Active mg tablet mouth daily. Active Problems Not on file Encounters Date Type Specialty Care Team Description 11/11/2021 Telephone Cancer Prevention Amina Waggoner APN 11/11/2021 Orders Only Cancer Prevention Amina Waggoner APN 11/07/2021 Ancillary Procedure Radiology Amina Waggoner Nipple discharge Y, UNDERWRITING ACCOUNT REPRESENTATIVE 11/07/2021 Travel 10/31/2021 Clinical Support Breast Undiagnosed Amina Waggoner UNDERWRITING ACCOUNT REPRESENTATIVE 10/31/2021 Hospital Encounter Radiology Amina Waggoner Mammogra phy abnormal; Y, UNDERWRITING ACCOUNT REPRESENTATIVE Nipple discharg e 10/31/2021 Hospital Encounter Radiology Amina Waggoner Mammogra phy abnormal; Y, UNDERWRITING ACCOUNT REPRESENTATIVE Nipple discharg e 10/31/2021 Office Visit Breast Undiagnosed Amina Waggoner Mammogra phy abnormal (Primary Dx); Y, UNDERWRITING ACCOUNT REPRESENTATIVE Nipple discharg e 10/31/2021 NPR Patient Access Services 10/31/2021 Travel 10/28/2021 Travel 09/30/2021 Orders Only Breast Undiagnosed Amina Waggoner Mammogra phy abnormal (Primary Dx); Y, UNDERWRITING ACCOUNT REPRESENTATIVE Nipple discharg e 09/24/2021 Ancillary Procedure Radiology Cancer 09/24/2021 Ancillary Procedure Radiology Cancer 09/24/2021 Ancillary Procedure Radiology Cancer 09/24/2021 Ancillary Procedure Radiology Cancer after 04/07/2021 Immunizations Name Administration Dates Next Due Influenza (IM) Preservative Free 07/24/2021 Influenza TIV (IM) 07/10/2020 Karl SARS-CoV-2 Vaccination 08/20/2021, 12/28/2020, 11/30 Zoster Recombinant 02/07/2019, 11/08/2018 Surgical History Surgery Date Site/Laterality Comments SHOULDER SURGERY 10/25/2012 - 10/24/2013 Left INCONTINENCE SURGERY 11/23/2018 CHOLECYSTECTOMY 09/24/2003 - 10/24/2003 POLYPECTOMY 10/25/1996 - 10/24/1997 DILATION AND CURETTAGE OF UTERUS COLONOSCOPY 09/24/2018 - 10/24/2018 Medical History Medical History Date Comments Pancreatitis Hypertension Thyroid dysfunction Asthma Family History Medical History Relation Name Comments Other Daughter katerin simmons ndrome Breast cancer Maternal Aunt Diagnosed at age 80s Relation Name Status Comments Daughter Alive Maternal Aunt Social History Tobacco Use Types Packs/Day Years Used Date Never Smoker Smokeless Tobacco: Never Used Alcohol Use Standard Drinks/Week Comments Yes 0 (1 standard drink = 0.6 oz pure alcoho l) occs. Alcohol Habits Answer Date Recorded How often do you have a drink containing alcohol? Not asked How many drinks containing alcohol do you have on a typical Not asked day when you are drinking? How often do you have six or more drinks on one occasion? No t asked Comment: occs. 10/31/2021 Sex Assigned at Date Recorded Female 09/09/2021 1:46 PM DIRECTOR OF ONLINE EDUCATION Job Start Date Occupation Industry Not on file Not on file Not on file Obstetrics History Para Term AB IAB SAB Ectopic Multiple Living Live Births 2 2 2 Date Outcome GA Total Labor/2nd/3rd Weight Sex Delivery Anes PTL Nurys A 1 A5 Name Clin Labor Para Para Comments Menarche: at age 17 Parity: at age 25 OBC: 2 years HRT: none Last pap smear: OS 2007 normal per patie nt Abnormal pap smear: none Last colonscopy: OS 09/2018. Colonoscopy due now per patient. Patient denies any history of abnormal p ap smears. Patient denies any history of breast bibi jessica or breast biopsy. Last Filed Vital Signs Vital Sign Reading Time Taken Comments Blood Pressure 147/80 10/31/2021 7:50 AM DIRECTOR OF ONLINE EDUCATION Pulse 65 10/31/2021 7:50 AM DIRECTOR OF ONLINE EDUCATION Temperature - - Respiratory Rate 18 10/31/2021 7:50 AM DIRECTOR OF ONLINE EDUCATION Oxygen Saturation - - Inhaled Oxygen Concentration - - Weight 118.1 kg (260 lb 5.8 oz) 11/07/2021 1:17 PM DIRECTOR OF ONLINE EDUCATION Height 172 cm (5' 7.72") 10/31/2021 7:50 AM DIRECTOR OF ONLINE EDUCATION Body Mass Index 39.92 10/31/2021 7:50 AM DIRECTOR OF ONLINE EDUCATION Plan of Treatment Health Maintenance Due Date Last Done Comments COVID-19 Vaccination Completed 08/20/2021, 12/28/2020, 03/2021, Additional history exists Procedures Procedure Name Priority Date/Time Associated Diagnosis Comme nts MRI BREAST BILATERAL Routine 11/07/2021 3:42 Nipple discharge Results for this W WO CONTRAST INCL PM DIRECTOR OF ONLINE EDUCATION procedure are in CAD the results section. US BREAST COMPLETE Routine 10/31/2021 1:37 Mammography abnormal Results for this BILATERAL PM DIRECTOR OF ONLINE EDUCATION Nipple discharge procedure a re in the results section. MAMMO DIGITAL Routine 10/31/2021 11:42 Mammography abn ormal Results for this DIAGNOSTIC BILATERAL AM DIRECTOR OF ONLINE EDUCATION Nipple discharge pro cedure are in W JEFFRY the results section. OSI MAMMO BILATERAL Routine 08/18/2021 3:05 Cancer Resu lts for this PM CDT procedure are i n the results section. after 04/07/2021 Results MRI Breast Bilateral with and without Contrast incl CAD (11/07/2021 3:42 PM DIRECTOR OF ONLINE EDUCATION) Anatomical Region Laterality Modality Breast Bilateral Magnetic Resonance Specimen (Source) Anatomical Collection Method Collection Time Re ceived Time Location / / Volume Laterality 11/07/2021 3:55 PM DIRECTOR OF ONLINE EDUCATION Impressions 11/11/2021 8:35 AM DIRECTOR OF ONLINE EDUCATION 1. There is no MRI evidence of malignanc y. 2. There is no MRI finding to explain th e patient's right nipple discharge. Clinical correlation is recommended. 3. Nodular thyroid gland. Correlation wi thyroid ultrasound is recommended if not already performed. ACR BI-RADS Category: 2. Recommend annual mammography I personally reviewed these image(s) jessica ng with the resident's/fellow's interpretations, certify that if a procedure was performed I was physically present, and agree with the final report. Narrative 11/11/2021 8:35 AM DIRECTOR OF ONLINE EDUCATION FULL RESULT: Examination: MRI BREAST BILATERAL W WO C ONTRAST INCL CAD, 11/07/2021 3:42 PM Clinical History: A 71-year-old woman wi th right non spontaneous clear nipple discharge. Indication: Nipple discharge Comparison: No prior breast MRI for comp arison. Mammogram 10/31/2021. Ultrasound 10/31/2021 Technique: Bilateral breast MRI was perf ormed before and after the administration of 10 mL of Gadavist intravenously per protocol. The following sequences were obtained: axial noncontrast T1-weighted, axial fat-suppressed T2-weighted, axial DWI with ADC mapping, axial dynamic pre- and postcontrast fat-suppressed T1-weighted, and delayed postcontrast sagittal fat-suppressed T1-weighted. Serial subtra ction images were generated during post- processing. DynaCAD was used for kinetic assessment. Findings: The breast composition is scattered fibr oglandular tissue. There is moderate early background parenchymal enhancement. There are scattered T2 hyperintense, enh ancing foci in both breasts with persistent kinetics, these findings favor to represent areas of fibrocystic changes. Right breast: There is no suspicious mass or non mass enhancement. Left breast: There is no suspicious mass or non mass enhancement. Emigdio Basins: There is no lymphadenopathy in the visu alized axillary or internal mammary regions. Extramammary: Nodular thyroid gland. Procedure Note Laura Perez MD - 11/11/2021Formattin g of this note might be different from the original. FULL RESULT: Examination: MRI BREAST BILATERAL W WO C ONTRAST INCL CAD, 11/07/2021 3:42 PM Clinical History: A 71-year-old woman wi th right non spontaneous clear nipple discharge. Indication: Nipple discharge Comparison: No prior breast MRI for comp arison. Mammogram 10/31/2021. Ultrasound 10/31/2021 Technique: Bilateral breast MRI was perf ormed before and after the administration of 10 mL of Gadavist intravenously per protocol. The following sequences were obtained: axial noncontrast T1-weighted, axial fat-suppressed T2-weighted, axial DWI wi th ADC mapping, axial dynamic pre- and postcontrast fat-suppressed T1-weighted, and delayed postcontrast sagittal fat- suppressed T1-weighted. Serial subtraction images were generated during post-processing. DynaCA D was used for kinetic assessment. Findings: The breast composition is scattered fibr oglandular tissue. There is moderate early background parenchymal enhancement. There are scattered T2 hyperintense, enh ancing foci in both breasts with persistent kinetics, these findings favor to represent areas of fibrocystic changes. Right breast: There is no suspicious mass or non mass enhancement. Left breast: There is no suspicious mass or non mass enhancement. Emigdio Basins: There is no lymphadenopathy in the visu alized axillary or internal mammary regions. Extramammary: Nodular thyroid gland. IMPRESSION: 1. There is no MRI evidence of malignanc y. 2. There is no MRI finding to explain th e patient's right nipple discharge. Clinical correlation is recommended. 3. Nodular thyroid gland. Correlation wi th thyroid ultrasound is recommended if not already performed. ACR BI-RADS Category: 2. Recommend annual mammography I personally reviewed these image(s) jessica hendrickson with the resident's/fellow's interpretations, certify that if a procedure was performed I was physically present, and agree with the final report. Amina Waggoner APN [facility] MRI ORDERABLES US Breast Complete Bilateral (10/31/2021 1:37 PM DIRECTOR OF ONLINE EDUCATION) Anatomical Region Laterality Modality Breast Bilateral Ultrasound Specimen (Source) Anatomical Collection Method Collection Time Re ceived Time Location / / Volume Laterality 10/31/2021 12:58 PM DIRECTOR OF ONLINE EDUCATION Impressions 10/31/2021 1:51 PM DIRECTOR OF ONLINE EDUCATION 1. There is no sonographic evidence of m alignancy in either breast. 2. No suspicious sonographic finding to explain the right nipple discharge. Clinical follow-up is recommended. MRI may be performed for further evaluation as clinically indicated. ACR BI-RADS Category: 2. Benign. I personally reviewed these image(s) jessica ng with the resident's/fellow's interpretations, certify that if a procedure was performed I was physically present, and agree with the final report. Narrative 10/31/2021 1:51 PM DIRECTOR OF ONLINE EDUCATION FULL RESULT: Examination: US BREAST COMPLETE BILATERA L 10/31/2021 1:37 PM Clinical History: 71-year-old woman with two episode of clear-colored/yellow nonspontaneous right nipple discharge. Indication: Nipple discharge Comparison: Mammogram on 10/31/2021 Technique: Real-time sonographic imaging of both breasts (including all 4 quadrants and retroareolar region) was performed. Images were obtained in multiple scanning planes. Findings: Right breast: No suspicious sonographic abnormality id entified. Specifically, no retroareolar mass to explain patient's intermittent nipple discharge. Multiple dilated ducts which contain echogenic avascular intralum inal hyperechoic debris are present. Sca ttered fibrocystic type changes are present throughout the breast. Left breast: No suspicious sonographic abnormality id entified. Multiple dilated ducts which contain echogenic avascular intraluminal hyperechoic debris are present. Scattered fibrocystic type changes are present throughout the breast. Procedure Note Abbey Black MD - 10/31/2021 FULL RESULT: Examination: US BREAST COMPLETE BILATERA L 10/31/2021 1:37 PM Clinical History: 71-year-old woman with two episode of clear-colored/yellow nonspontaneous right nipple discharge. Indication: Nipple discharge Comparison: Mammogram on 10/31/2021 Technique: Real-time sonographic imaging of both breasts (including all 4 quadrants and retroareolar region) was performed. Images were obtained in multiple scanning planes. Findings: Right breast: No suspicious sonographic abnormality id entified. Specifically, no retroareolar mass to explain patient's intermittent nipple discharge. Multiple dilated ducts which contain echogenic avascular intraluminal hyperechoic debris are present. Scattere d fibrocystic type changes are present throughout the breast. Left breast: No suspicious sonographic abnormality id entified. Multiple dilated ducts which contain echogenic avascular intraluminal hyperechoic debris are present. Scattered fibrocystic type changes are present throughout the breast. IMPRESSION: 1. There is no sonographic evidence of m alignancy in either breast. 2. No suspicious sonographic finding to explain the right nipple discharge. Clinical follow-up is recommended. MRI may be performed for further evaluation as clinically indicated. ACR BI-RADS Category: 2. Benign. I personally reviewed these image(s) jessica ng with the resident's/fellow's interpretations, certify that if a procedure was performed I was physically present, and agree with the final report. Amina Waggoner APN IMG US ORDERABLES (ABNORMAL) Mammography Digital Diagnostic Bilateral with Jeffry (10/31/2021 11:42 AM DIRECTOR OF ONLINE EDUCATION) Anatomical Region Laterality Modality Breast Bilateral Mammography Specimen (Source) Anatomical Collection Method Collection Time Re ceived Time Location / / Volume Laterality 10/31/2021 1:47 PM DIRECTOR OF ONLINE EDUCATION Impressions 10/31/2021 1:47 PM DIRECTOR OF ONLINE EDUCATION 1: Area in the right breast requires additional imaging evaluation. An ultrasound exam is recommended. 2: Areas of nodularity in both breasts require additional imaging evaluation. An ultrasound exam is recommended. BI-RADS Category 0: Incomplete: Needs Additional Imaging Mary luation Narrative 10/31/2021 1:47 PM DIRECTOR OF ONLINE EDUCATION CLINICAL INDICATION: Patient is a 71 year old female and is s een for additional evaluation requested from prior study MAMMO DIGITAL DIAGNOSTIC BILATERAL W HORTENCIA O Digital Mammogram evaluated with Compute r Aided Detection (CAD). COMPARISON: The present examination has been compare d to prior imaging studies performed at an outside location on 02/10/2017, 04/25, 08/14/2020 and 08/18/2021. FINDINGS: There are scattered areas of fibroglandu lar density. 1: There is no radiographic abnormalit y in the region of the non-bloody nipple discharge in the right breast. Patient reports two episode history of non-spontaneous clear/yellow colored nip ple discharge. 2: There are areas of nodularity in sree th breasts. Tomosynthesis performed in CC and MLO pr ojections. Procedure Note Abbey Black MD - 10/31/2021 CLINICAL INDICATION: Patient is a 71 year old female and is s een for additional evaluation requested from prior study MAMMO DIGITAL DIAGNOSTIC BILATERAL W HORTENCIA O Digital Mammogram evaluated with Compute r Aided Detection (CAD). COMPARISON: The present examination has been compare d to prior imaging studies performed at an outside location on 02/10/2017, 04/25, 08/14/2020 and 08/18/2021. FINDINGS: There are scattered areas of fibroglandu lar density. 1: There is no radiographic abnormality in the region of the non-bloody nipple discharge in the right breast. Patient reports two episode history of non-spontaneous clear/yellow colored nip ple discharge. 2: There are areas of nodularity in bot h breasts. Tomosynthesis performed in CC and MLO pr ojections. IMPRESSION: 1: Area in the right breast requires ad ditional imaging evaluation. An ultrasound exam is recommended. 2: Areas of nodularity in both breasts require additional imaging evaluation. An ultrasound exam is recommended. BI-RADS Category 0: Incomplete: Needs Additional Imaging Mary luation Amina Waggoner APN IMG MAMMOGRAPHY ORDERABLES OSI Mammo (08/18/2021 3:05 PM CDT) Specimen (Source) Anatomical Location Collection Method / Collectio n Time Received Time / Laterality Volume Narrative [facility] - 09/24/2021 3:05 PM DIRECTOR OF ONLINE EDUCATION Study acquired at another institution. For comparison only. No MD Rueda originated interpretation requested or a vailable. Luis Felipe Cates DO IMG OUTSIDE IMAGE ORDERABLES Performing Organization Address City/State/ZIP Code Phon e Number [facility] after 04/07/2021 Insurance Payer Benefit Plan Subscriber ID Effective Phone Address Typ e / Group Dates MEDICARE MEDICARE PART [id number] 2017-Prese [phone] [facility] Medicare A AND B nt [id number] [address] [place] [address] [employer] PPO [id number] 2018-Pres [address] BLUE SHIELD POS ent [id number] [place] [address] Care Teams Search Analyst Relationship Specialty Start Date End Date Amina Waggoner APN PCP - General Cancer Prevention 10/31/[address] [place] [id number]
--- OUTSIDE RECORDS SUMMARY | 2022-04-07 01:40 | XMS REPORT | Continuity of Care Document ---
:1950 Author Organization [facility] t Address [address] [place] [address] Care Team Providers Name Role Phone [phone] Primary Care Physician Unavailable Matthieu Cates Attending Clinician Unavailable SYSTEM, NOT IN Attending Clinician Unavailable Maria Luisa Hernandez APN Attending Clinician Maria Luisa HERNANDEZ Attending Clinician Unavailable Naz RUBIO Attending Clinician NAZ Attending Clinician Unavailable Doctor Unassigned, Name Attending Clinician Unavailable Johny RN, D Attending Clinician Unavailable BRI Attending Clinician Unavailable Payers Payer Name Policy Type Policy Number Effective Date Expiration Date S ource Problems Condition Condition Condition Status Onset Resolution Last Treating Co mments Source Name Details Category Date Date Treatment Clinician Date 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 ICD10 Diagnosis Term Deportation Examiner Utility Iron Iron Disease Active Overview: Univer s deficiency deficiency 2-24 Formattin ity of anemia anemia 00:00: g of this note Medical might be Branch different from the original. ICD10 Diagnosis Term Deportation Examiner Utility Hypothyroi Hypothyroi Disease Active Overview : Univers dism dism 2-20 Formattin ity of 00:00: g of this note Medical might be Branch different from the original. ICD10 Diagnosis Term Deportation Examiner Utility Allergies, Adverse Reactions, Alerts Allergy Allergy Status Severity Reaction(s) Onset Inactive Treating Comm ents Source Name Type Date Date Clinician Cochinea Propensi Active Rash Univer s l ty to 07 ity of adverse 00:00: [place] reaction 00 MD valdo fleming [facility] Oxybutyn Drug Active Other (See 2020-10 Univ ers in Allergy Comments) 2- ity of 00:00: [place] 00 MD Marilee fleming [facility] Sucralfa Drug Active Swelling 2020-10 Univer s te Allergy 2-03 ity of 00:00: [place] 00 MD Marilee fleming [facility] SULFA Drug Active Rash Univers (SULFONA Class 6-01 ity of MIDE 00:00: [place] ANTIBIOT 00 Medical ICS) Branch Sulfa Propensi Active Rash Univers (Sulfona ty to 6-01 ity of mide adverse 00:00: [place] Antibiot reaction 00 Medica l ics) s Branch soy DA Active U 2009- [facility] isoflavo 3-20 [place] ne 00:00: d 00 [facility] Shellfis DA Active U 2009- [facility] h 3-20 [place] 00:00: d 00 [facility] clindamy DA Active U 2009- [facility] lawson 3-20 [place] 00:00: d 00 [facility] ramipril DA Active U 2009- [facility] 3-20 [place] 00:00: d 00 [facility] nabumeto DA Active U 2009-0 [facility] ne 3-20 [place] 00:00: d 00 Medical [place] penicill DA Active U 2009-0 [facility] in G 3-20 [place] 00:00: d 00 [facility] milk FA Active U 2009- [facility] 3-20 [place] 00:00: d 00 [facility] kiwi FA Active U 2009-0 [facility] 3-20 [place] 00:00: d 00 [facility] coffee FA Active U 2009-0 [facility] (Coffea 3-20 [place] arabica) 00:00: d 00 [facility] CHOCOLAT DA Active U 2009-0 [facility] E 3-20 [place] 00:00: d 00 [facility] EGGS DA Active U 2009-0 [facility] 3-20 [place] 00:00: d 00 [facility] MELONS DA Active U 2009-0 [facility] 3-20 [place] 00:00: d 00 [facility] PEARS DA Active U 2009-0 [facility] 3-20 [place] 00:00: d 00 [facility] CLINDAMY DRUG Active Unknown-Cmnt Un maria alejandra LAWSON INGREDI 2-06 ity of 00:00: [place] 00 Medical Branch Clindamy Propensi Active Unknown - Uni vers lawson ty to See comments 2-06 ity of adverse 00:00: [place] reaction 00 Medical s Branch PENICILL Drug Active Unknown-Cmnt Un maria alejandra INS Class 2-06 ity of 00:00: [place] 00 Medical Branch RAMIPRIL DRUG Active Unknown-Cmnt Un maria alejandra INGREDI 2-06 ity of 00:00: [place] 00 Medical Branch NABUMETO DRUG Active Unknown-Cmnt Un maria alejandra NE INGREDI 2-06 ity of 00:00: [place] 00 Medical Branch Penicill Propensi Active Unknown - Uni vers ins ty to See comments 2-06 ity of adverse 00:00: [place] reaction 00 Medical s Branch Ramipril Propensi Active Unknown - Uni vers ty to See comments 2-06 ity of adverse 00:00: [place] reaction 00 Medical s Branch Nabumeto Propensi Active Unknown - Uni vers ne ty to See comments 2-06 ity of adverse 00:00: [place] reaction 00 Medical s Branch Clindamy Drug Active Other (See Other Univ ers lawson Allergy Comments) 2-06 reaction( ity of 00:00: s): [place] 00 Unknown - [facility] Nabumeto Drug Active Other (See Univ ers ne Allergy Comments) 2-06 ity of 00:00: [place] 00 MD Marilee [facility] Penicill Drug Active Other (See Univ ers ins Allergy Comments) 2-06 ity of 00:00: [place] 00 MD Marilee fleming [facility] Ramipril Drug Active Other (See Univ ers Allergy Comments) 11-30 ity of 00:00: [place] 00 MD Marilee fleming [facility] clindamy Adverse Active Info Not Commo n lawson Reaction Available [facility] PCN Adverse Active Info Not Common Reaction Available [facility] Relaform Adverse Active Info Not Commo n Reaction Available [facility] Carafate Adverse Active Info Not Commo n Reaction Available [facility] Colchici Adverse Active Info Not Commo n ne Reaction Available [facility] Oxybutyn Adverse Active Info Not Commo n in Reaction Available [facility] Family History Family Member Diagnosis Comments Start Date Stop Date Source Natural daughter Other [facility] Maternal aunt Breast cancer [facility] Social History Social Habit Start Date Stop Date Quantity Comments Source Exposure to Not sure [facility] SARS-CoV-2 [place] Medical (event) Branch History SDOR University o f Alcohol Frequency [facility] History [facility] o f Alcohol Std [place] MD [facility] History [facility] o f Alcohol Binge [place] MD [facility] Tobacco use and 2021-10-31 2021-10-31 Smokeless tobacco Un iversity of exposure 00:00:00 00:00:00 non-user [facility] Alcohol intake 2021-10-31 2021-10-31 Current drinker Unive rsity of 00:00:00 00:00:00 of alcohol [place] MD Jose [facility] ([facility] History SDOH 2021-10-31 2021-10-31 occs. University o f Alcohol Comment 00:00:00 00:00:00 [facility] Sex Ass[birth year] At [birth year] F Universit y of 00:00:00 00:00:00 [place] MD [facility] Smoking Status Start Date Stop Date Source Never smoked tobacco [facility] Medications Ordered Filled Start Stop Current Ordering Indication Dosage Frequency Signature Comments Components Source Medication Medication Date Date Medication? Clinician (SIG) Name Name albuterol Yes as needed. Un maria alejandra (ProAir 10-31 ity of HFA) 90 08:09: [place] mcg/puff 07 [facility] budesonide- Yes as needed. [facility] formoterol 10-31 ity of (SYMBICORT) 08:09: [place] 160-4.5 07 MD mackay/actuati Marilee on inhaler [facility] celecoxib Yes 1{capsu Take 1 Uni vers (CeleBREX) 1-07 le} capsule by ity of 200 mg 08:09: mouth [place] capsule 07 daily. MD Marilee fleming [facility] dexlansopra Yes 1{capsu Take 1 U nivers zole 1-07 le} capsule by ity of (DEXILANT) 08:09: mouth [place] 60 mg 07 daily. MD inez Hunt [facility] dicyclomine Yes 1{tbl} Take 1 Un maria alejandra (BENTYL) 20 1-07 tablet by ity of mg tablet 08:09: mouth [place] 07 twice MD daily. Marilee [facility] escitalopra Yes 1{tbl} Take 1 Un maria alejandra m (LEXAPRO) 1-07 tablet by ity of 20 mg 08:09: mouth [place] tablet 07 daily. MD Marilee fleming [facility] fesoterodin Yes 1{tbl} Take 1 Un maria alejandra e (Toviaz) 1-07 tablet by ity of 4 mg Tb24 08:09: mouth [place] 07 daily. MD Marilee fleming [facility] fluticasone Yes as needed. [facility] propionate- 10-31 ity of salmeterol 08:09: [place] (ADVAIR) 07 100 mcg-50 Andjonathano mcg/inhalat n ion diskus [facility] inhaler [place] furosemide Yes 1{tbl} Take 1 Uni vers (LASIX) 20 1-07 tablet by ity of mg tablet 08:09: mouth [place] 07 daily. MD Marilee fleming [facility] gabapentin Yes 2{tbl} Take 2 Uni vers enacarbil 1-07 tablets by ity of (Horizant) 08:09: mouth [place] 600 mg TbER 07 daily. MD Mar[facility] HYDROcodone Yes 1{tbl} Take 1 Un maria alejandra -acetaminop 1-07 tablet by ity of hen (NORCO) 08:09: mouth 3 Aime as 7.5 mg-325 07 (three) MD mg per times a [place] tablet day. n [facility] levocetiriz Yes 1{tbl} Take 1 Un maria alejandra ine (XYZAL) 1-07 tablet by ity of 5 MG tablet 08:09: mouth [place] 07 daily. MD Marilee fleming [facility] lisinopril Yes 1{tbl} Take 1 Uni vers (PRINIVIL,Z 1-07 tablet by ity of ESTRIL) 10 08:09: mouth [place] mg tablet 07 daily. MD Marilee fleming [facility] METHIMAZOLE Yes 15mg Take 15 mg Univers ORAL 1-07 by mouth ity of 08:09: daily. [place] 07 MD Marilee fleming [facility] metoprolol Yes 1{tbl} Take 1 Uni vers russell-hydrochl 1-07 tablet by ity of orothiaz 08:09: mouth [place] 50-12.5 mg 07 daily. Tb24 Marilee fleming [facility] mirabegron Yes daily. Unive rs (Myrbetriq) 1-07 ity of 50 mg 24 hr 08:09: [place] tablet 07 MD Marilee fleming [facility] montelukast Yes daily. Univ ers (SINGULAIR) 1-07 ity of 10 mg 08:09: [place] tablet 07 MD Marilee fleming [facility] tiZANidine Yes 1{tbl} Take 1 Uni vers (ZANAFLEX) 1-07 tablet by ity of 4 mg tablet 08:09: mouth [place] 07 daily. MD Marilee fleming [facility] [place] simvastatin 2020-10 Yes 1{tbl} Take 1 Un maria alejandra (ZOCOR) 20 0-19 tablet by ity of mg tablet 00:00: mouth [place] 00 daily. MD Marilee fleming [facility] ProAir HFA ProAir HFA Yes Luis Felipe 2 puffs as Common 3-09 Cates needed Spirit 00:00: - [facility] 00 [facility] Methimazole Methimazole Yes Luis Felipe 1 tablet Common 11-16 [facility] 00:00: - [facility] Myrbetriq Myrbetriq 2019-0 Yes Luis Felipe 1 tablet Common 11-16 [facility] 00:00: - [facility] Lexapro Lexapro 2019-0 Yes Luis Felipe 1 tablet C ommon 11-16 [facility] 00:00: - [facility] Montelukast Montelukast 2019- Yes Luis Felipe 1 tablet Common Sodium Sodium 11-16 Cates Spirit 00:00: - [facility] 00 [facility] Dexlansopra 2016-10 Yes Take by Un maria alejandra zole 0-04 mouth ity of (DEXILANT) 15:10: after [place] 60 mg 08 meals and Medical capsule at Branch bedtime. Dexlansopra 2016-10 Yes Take by Un maria alejandra zole 0-04 mouth ity of (DEXILANT) 15:10: after [place] 60 mg 08 meals and Medical capsule at Branch bedtime. NEXIUM 40 2016-10 Yes 1 a day Unive rs MG ORAL 0-04 ity of CPDR 15:07: [address] LEXAPRO 20 2016-10 Yes 1 a day Univ ers MG ORAL TAB 0-04 ity of 15:07: [address] HYDROCODONE 2016-10 Yes None Univer s -ACETAMINOP 0-04 Entered ity o f HEN 7.5-750 15:07: [place] MG ORAL TAB [address] [place] [address] CALCIUM 600 2016-10 Yes None Univer s MG ORAL CAP 0-04 Entered ity o f 15:07: [address] VITAMIN D-3 2016-10 Yes 2000IU a Un maria alejandra ORAL 0-04 day ity of 15:07: [address] ZYRTEC 10 2016-10 Yes 1 a day Unive rs MG ORAL TAB 0-04 ity of 15:07: [address] MUCINEX 2016-10 Yes prn Univers ORAL 0-04 ity of 15:07: [address] VESICARE 10 2016-10 Yes once daily Univers MG ORAL TAB 0-04 ity of 15:07: [address] rosuvastati 2016-10 Yes 10mg Take 10 mg Univers n (CRESTOR) 0-04 by mouth ity of 10 mg 15:07: daily. [address] celecoxib 2016-10 Yes 200mg Take 200 Uni vers (CELEBREX) 0-04 mg by ity of 200 mg 15:07: mouth [place] capsule 54 daily. Medical Branch NEXIUM 40 2016-10 Yes 1 a day Unive rs MG ORAL 0-04 ity of CPDR 15:07: [address] LEXAPRO 20 2016-10 Yes 1 a day Univ ers MG ORAL TAB 0-04 ity of 15:07: [address] HYDROCODONE 2016-10 Yes None Univer s -ACETAMINOP 0-04 Entered ity o f HEN 7.5-750 15:07: [place] MG ORAL TAB [address] [place] [address] CALCIUM 600 2016-10 Yes None Univer s MG ORAL CAP 0-04 Entered ity o f 15:07: [address] VITAMIN D-3 2016-10 Yes 2000IU a Un maria alejandra ORAL 0-04 day ity of 15:07: [address] ZYRTEC 10 2016-10 Yes 1 a day Unive rs MG ORAL TAB 0-04 ity of 15:07: [address] MUCINEX 2016-10 Yes prn Univers ORAL 0-04 ity of 15:07: [address] VESICARE 10 2016-10 Yes once daily Univers MG ORAL TAB 0-04 ity of 15:07: [address] rosuvastati 2016-10 Yes 10mg Take 10 mg Univers n (CRESTOR) 0-04 by mouth ity of 10 mg 15:07: daily. [address] celecoxib 2016-10 Yes 200mg Take 200 Uni vers (CELEBREX) 0-04 mg by ity of 200 mg 15:07: mouth [place] capsule 54 daily. [facility] Branch Dexlansopra 2016-10 Yes Take by Un maria alejandra zole 0-04 mouth ity of (DEXILANT) 10:10: after [place] 60 mg 08 meals and Medical capsule at Branch bedtime. Dexlansopra 2016-10 Yes Take by Un maria alejandra zole 0-04 mouth ity of (DEXILANT) 10:10: after [place] 60 mg 08 meals and Medical capsule at Branch bedtime. celecoxib 2016-10 Yes 200mg Take 200 Uni vers (CELEBREX) 0-04 mg by ity of 200 mg 10:07: mouth [place] capsule 54 daily. Medical Branch NEXIUM 40 2016-10 Yes 1 a day Unive rs MG ORAL 0-04 ity of CPDR 10:07: [address] LEXAPRO 20 2016-10 Yes 1 a day Univ ers MG ORAL TAB 0-04 ity of 10:07: [address] HYDROCODONE 2016-10 Yes None Univer s -ACETAMINOP 0-04 Entered ity o f HEN 7.5-750 10:07: [place] MG ORAL TAB [address] [place] [address] CALCIUM 600 2016-10 Yes None Univer s MG ORAL CAP 0-04 Entered ity o f 10:07: [address] VITAMIN D-3 2016-10 Yes 2000IU a Un maria alejandra ORAL 0-04 day ity of 10:07: [address] ZYRTEC 10 2016-10 Yes 1 a day Unive rs MG ORAL TAB 0-04 ity of 10:07: [address] MUCINEX 2016-10 Yes prn Univers ORAL 0-04 ity of 10:07: [address] VESICARE 10 2016-10 Yes once daily Univers MG ORAL TAB 0-04 ity of 10:07: [address] rosuvastati 2016-10 Yes 10mg Take 10 mg Univers n (CRESTOR) 0-04 by mouth ity of 10 mg 10:07: daily. [address] celecoxib 2016-10 Yes 200mg Take 200 Uni vers (CELEBREX) 0-04 mg by ity of 200 mg 10:07: mouth [place] capsule 54 daily. Medical Branch NEXIUM 40 2016-10 Yes 1 a day Unive rs MG ORAL 0-04 ity of CPDR 10:07: [address] LEXAPRO 20 2016-10 Yes 1 a day Univ ers MG ORAL TAB 0-04 ity of 10:07: [address] HYDROCODONE 2016-10 Yes None Univer s -ACETAMINOP 0-04 Entered ity o f HEN 7.5-750 10:07: [place] MG ORAL TAB [address] [place] [address] CALCIUM 600 2016-10 Yes None Univer s MG ORAL CAP 0-04 Entered ity o f 10:07: [address] VITAMIN D-3 2016-10 Yes 2000IU a Un maria alejandra ORAL 0-04 day ity of 10:07: [address] ZYRTEC 10 2016-10 Yes 1 a day Unive rs MG ORAL TAB 0-04 ity of 10:07: [address] MUCINEX 2016-10 Yes prn Univers ORAL 0-04 ity of 10:07: [address] VESICARE 10 2016-10 Yes once daily Univers MG ORAL TAB 0-04 ity of 10:07: [address] rosuvastati 2016-10 Yes 10mg Take 10 mg Univers n (CRESTOR) 0-04 by mouth ity of 10 mg 10:07: daily. [place] [address] Medical Branch lisinopril- 2016-10 Yes 1{tbl} Take 1 Un maria alejandra hydrochloro 0-04 tablet by ity of thiazide 00:00: mouth [place] 10-12.5 mg 00 daily. Medical per tablet Branch lisinopril- 2016-10 Yes 1{tbl} Take 1 Un maria alejandra hydrochloro 0-04 tablet by ity of thiazide 00:00: mouth [place] 10-12.5 mg 00 daily. Medical per tablet Branch lisinopril- 2016-10 Yes 1{tbl} Take 1 Un maria alejandra hydrochloro 0-04 tablet by ity of thiazide 00:00: mouth [place] 10-12.5 mg 00 daily. Medical per tablet Branch lisinopril- 2016-10 Yes 1{tbl} Take 1 Un maria alejandra hydrochloro 0-04 tablet by ity of thiazide 00:00: mouth [place] 10-12.5 mg 00 daily. Medical per tablet Branch levothyroxi Yes [id number] 50ug Take 1 Tab Univers ne 1-25 by mouth ity of (SYNTHROID) 00:00: daily. [place] 50 mcg 00 Administer Medical tablet on empty Branch stomach. levothyroxi Yes [id number] 50ug Take 1 Tab Univers ne 1-25 by mouth ity of (SYNTHROID) 00:00: daily. [place] 50 mcg 00 Administer Medical tablet on empty Branch stomach. levothyroxi Yes [id number] 50ug Take 1 Tab Univers ne 1-25 by mouth ity of (SYNTHROID) 00:00: daily. [place] 50 mcg 00 Administer Medical tablet on empty Branch stomach. levothyroxi Yes [id number] 50ug Take 1 Tab Univers ne 1-25 by mouth ity of (SYNTHROID) 00:00: daily. [place] 50 mcg 00 Administer Medical tablet on empty Branch stomach. TOPROL XL 2008- Yes [id number] 1 by mouth Univers 50 MG ORAL 4-21 every day ity of TB24 00:00: [place] Medical Branch TOPROL XL 2009- Yes [id number] 1 by mouth Univers 50 MG ORAL 4-21 every day ity of TB24 00:00: [place] Medical Branch TOPROL XL 2008- Yes [id number] 1 by mouth Univers 50 MG ORAL 4-21 every day ity of TB24 00:00: [place] Medical [facility] TOPROL XL 2008- Yes [id number] 1 by mouth Univers 50 MG ORAL 4-21 every day ity of TB24 00:00: [place] Medical Branch Hydrocodone Hydrocodone Yes Luis Felipe 1 tablet Common -Acetaminop -Acetaminop Cates as needed [facility] hen hen [facility] Celecoxib Celecoxib Yes Luis Felipe 1 capsule Common Cates with food [facility] Lisinopril Lisinopril Yes Luis Felipe 1 tablet Common Cates [facility] Furosemide Furosemide Yes Luis Felipe 1 tablet Common Cates [facility] Fluticasone Fluticasone Yes Luis Felipe 1 spray in Common Propionate Propionate Cates each Sp iam nostril [facility] Metoprolol Metoprolol Yes Luis Felipe 1 tablet Common Succinate Succinate Cates Spir it ER ER [facility] Tizanidine Tizanidine Yes Lius Felipe 1 tablet Common HCl HCl Cates as needed [facility] Simvastatin Simvastatin Yes Luis Felipe 1 tablet Common Cates in the [facility] evening [facility] Xyzal Xyzal Yes Luis Felipe 1 tablet Common Allergy Allergy Cates in the [facility] 24HR 24HR [facility] Toviaz Toviaz Yes Luis Felipe 1 tablet Commo n Cates [facility] Dexilant Dexilant Yes Luis Felipe 1 capsule Common Cates [facility] Symbicort Symbicort Yes Luis Felipe 2 puffs Common Cates [facility] Lunesta Lunesta Yes Luis Felipe 1 tablet Com mon Cates immediatel [facility] y before - CHI bedtime [facility] Gabapentin Gabapentin Yes Luis Felipe 1 capsule Common Cates [facility] Immunizations Ordered Filled Immunization Date Status Comments [facility] e Immunization Name Name Karl SARS-CoV-2 2021-08-20 Completed Univer sity of Vaccination 00:00:00 Shani blanco [facility] Influenza (IM) 2021-07-24 Completed University of Preservative Free 00:00:00 [facility] SARS-COV-2 COVID-19 2020-12-28 Completed Unive rsity of MODERNA VACCINE 00:00:00 [facility] SARS-COV-2 COVID-19 2020-12-28 Completed Unive rsity of MODERNA VACCINE 00:00:00 [facility] SARS-COV-2 COVID-19 2020-12-28 Completed Unive rsity of MODERNA VACCINE 00:00:00 [facility] SARS-COV-2 COVID-19 2020-12-28 Completed Unive rsity of MODERNA VACCINE 00:00:00 [facility] Karl SARS-CoV-2 2020-12-28 Completed Univer sity of Vaccination 00:00:00 Shani blanco [facility] SARS-COV-2 COVID-19 2020-11-30 Completed Unive rsity of MODERNA VACCINE 00:00:00 [facility] SARS-COV-2 COVID-19 2020-11-30 Completed Unive rsity of MODERNA VACCINE 00:00:00 [facility] SARS-COV-2 COVID-19 2020-11-30 Completed Unive rsity of MODERNA VACCINE 00:00:00 [facility] SARS-COV-2 COVID-19 2020-11-30 Completed Unive rsity of MODERNA VACCINE 00:00:00 [facility] Karl SARS-CoV-2 2020-11-30 Completed Univer sity of Vaccination 00:00:00 Shani blanco [facility] Influenza TIV (IM) 2020-07-10 Completed Univer sity of 00:00:00 Shani jacobs [facility] Zoster Recombinant 2019-02-07 Completed Univer sity of 00:00:00 Shani jacobs [facility] Zoster Recombinant 2018-11-08 Completed Univer sity of 00:00:00 Shani jacobs [facility] Vital Signs Vital Name Observation Time Observation Value Comments Source Body weight 2021-11-07 19:17:00 118.1 kg Universi ty [facility] MD [facility] BMI 2021-11-07 19:17:00 39.92 kg/m2 Universi ty [facility] MD [facility] Systolic blood 2021-10-31 13:50:08 147 mm[Hg] Univer sity of pressure [place] MD [facility] Diastolic blood 2021-10-31 13:50:08 80 mm[Hg] Unive rsity of pressure [place] MD [facility] Heart rate 2021-10-31 13:50:08 65 /min Universi ty [facility] MD [facility] Respiratory rate 2021-10-31 13:50:08 18 /[facility] Body height 2021-10-31 13:50:08 172 cm Universi ty [facility] MD [facility] Procedures Procedure Date / Time Performed Performing Clinician Sour e MRI BREAST BILATERAL W 2021-11-07 21:42:00 Amina Hernandez [facility] WO CONTRAST INCL CAD [facility] US BREAST COMPLETE 2021-10-31 19:37:00 Amina Hernandez [facility] y of [place] BILATERAL [facility] MAMMO DIGITAL 2021-10-31 17:42:37 Amina Hernandez [place] [facility] f [place] DIAGNOSTIC BILATERAL W [facility] OSI MAMMO BILATERAL 2021-08-18 20:05:00 Luis Felipe [facility] ASSIGNMENT OF BENEFITS 2021-07-30 20:12:03 Doctor Unassigned, No [facility] Name Medical Branch Encounters Start End Encounter Admission Attending Care Care Encounter Source Date/Time Date/Time Type Type Clinicians Facility Department ID 2021-11-19 [facility] 14:40:14 Luis Felipe [facility] 2021-11-19 Outpatient CatesCHRISTINA [facility] Common 13:44:30 Luis Felipe [facility] 2021-11-19 Outpatient CatesCHRISTINA [facility] Common 13:41:01 Luis Felipe [id number] [facility] 2021-11-19 Outpatient Cates, STLMLC STLMLC Common 12:33:39 Luis Felipe [id number] [facility] 2021-11-19 Outpatient Cates, STLMLC STLMLC Common 12:30:57 Luis Felipe [id number] [facility] 2021-11-19 Outpatient Cates, STLMLC STLMLC Common 12:04:00 Luis Felipe [id number] [facility] 2021-11-19 Outpatient Cates, STLMLC STLMLC Common 11:21:45 Luis Felipe [id number] [facility] 2021-11-19 Outpatient STLMLC STLMLC Common 11:16:04 [id number] [facility] 2021-11-19 Outpatient STLMLC STLMLC Common 11:03:21 [id number] [facility] 2021-11-19 Outpatient STLMLC STLMLC Common 11:02:50 [id number] [facility] 2021-10-28 Outpatient SYSTEM, [facility] FELISHA [id number] 10:24:27 PROVIDER Marlon fleming 2022-03-13 2022-03-13 ambulatory STLMLC STLMLC [id number] Common 00:00:00 00:00:00 [facility] 2022-02-18 2022-02-18 ambulatory STLMLC STLMLC [id number] Common 00:00:00 00:00:00 [facility] 2022-01-30 2022-01-30 ambulatory STLMLC STLMLC [id number] Common 00:00:00 00:00:00 [facility] 2022-01-12 2022-01-12 ambulatory STLMLC STLMLC [id number] Common 00:00:00 00:00:00 [facility] 2021-11-18 2021-11-18 ambulatory STLMLC STLMLC [id number] Common 00:00:00 00:00:00 [facility] 2021-11-11 2021-11-11 Telephone [place]il[place], 1.2.840.1 [id number] Univers 00:00:00 00:00:00 Amina Y 44650.1.1 ity of 3.412.2.7 [place] .3.819952 MD Hoffman8 [facility] 2021-11-11 2021-11-11 [facility] Remingtonnaveenjose ramon, 1.2.840.1 [id number] Univers 00:00:00 00:00:00 Only Amina Y 15962.1.1 ity of 3.412.2.7 [place] .3.186097 MD Hoffman8 [facility] 2021-11-07 2021-11-07 Ancillary Remingtonnaveenjose ramon, 1.2.840.1 [id number] Univers 13:15:00 15:00:00 Procedure Amina Y 15468.1.1 it y of 3.412.2.7 [place] .3.612287 MD Griffiths [facility] 2021-11-07 2021-11-07 Outpatient ANA MARIA HERNANDEZ MDA MDA [id number] 416 12:59:39 12:59:39 AMINA Marlon [facility] 2021-11-07 2021-11-07 Travel 1.2.840.1 1.2.612.883 1501 [id number] Univers 00:00:00 00:00:00 93717.1.1 350.1.13.41 ity of 3.412.2.7 [place].698 [place] .3.578[place] 084.8 MD Griffiths [facility] 2021-10-31 2021-10-31 [facility] Remingtonnaveenjose ramon, 1.2.840.1 [id number] Univers 11:15:00 23:59:00 Encounter Maina Y 12778.1.1 it y of 3.412.2.7 [place] .3.617923 MD Griffiths [facility] 2021-10-31 2021-10-31 Outpatient ANA MARIA HERNANDEZ MDA MDA [id number] MD 11:15:00 23:59:00 AMINA Marlon o n 2021-10-31 2021-10-31 Outpatient ANA MARIA HERNANDEZ [facility] MDA [id number] MD 14:27:39 14:53:15 AMINA Marlon o n 2021-10-31 2021-10-31 [facility] [place], 1.2.840.1 [id number] [facility] 13:20:00 14:53:15 Support Amina Y 97792.1.1 ity of 3.412.2.7 [place] .3.768940 .8 [facility] 2021-10-31 2021-10-31 [facility] Edilson, 1.2.840.1 [id number] [facility] 09:12:38 11:14:00 Encounter Amina Y 23934.1.1 it y of 3.412.2.7 [place] .3.216298 MD Hoffman8 [facility] 2021-10-31 2021-10-31 Outpatient FELISHA HERNANDEZ MDA [id number] MD 09:12:38 11:14:00 AMINA Marlon o n 2021-10-31 2021-10-31 [facility] [place]son, 1.2.840.1 [id number] [facility] 08:40:00 09:10:17 Visit Amina Y 78391.1.1 ity of 3.412.2.7 [place] .3.943972 MD Hoffman8 [facility] 2021-10-31 2021-10-31 Outpatient ANA MARIA HERNANDEZ MDA MDA [id number] MD 07:41:19 09:10:17 AMINA Marlon o n 2021-10-31 2021-10-31 Outpatient [facility] MDA [id number] MD 07:38:55 07:39:06 Marlon o n 2021-10-31 2021-10-31 [facility] 1.2.840.1 [id number] Univers 07:30:00 07:39:06 60782.1.1 ity of 3.412.2.7 [place] .3.386050 .8 [facility] 2021-10-31 2021-10-31 Travel 1.2.840.1 1.2.381.203 [id number] Univers 00:00:00 00:00:00 24330.1.1 350.1.13.41 ity of 3.412.2.7 [place].3.698 [place] .3.849019 084.8 MD Hoffman8 [facility] 2021-10-28 2021-10-28 Travel 1.2.840.1 1.2.369.404 [id number] Univers 00:00:00 00:00:00 39995.1.1 350.1.13.41 ity of 3.412.2.7 [place].3.698 [place] .3.134133 084.8 MD Griffiths [facility] 2021-10-06 2021-10-06 ambulatory STLMLC STLMLC [id number] Common 00:00:00 00:00:00 [facility] 2021-09-30 2021-09-30 Orders Natalyni, 1.2.840.1 [id number] Univers 00:00:00 00:00:00 Only Amina Y 25796.1.1 ity of 3.412.2.7 [place] .3.896356 MD Griffiths [facility] 2021-09-30 2021-09-30 ambulatory STLMLC STLMLC [id number] Common 00:00:00 00:00:00 [facility] 2021-09-25 2021-09-25 ambulatory STLMLC STLMLC [id number] Common 00:00:00 00:00:00 [facility] 2021-09-24 2021-09-24 Ancillary 1.2.840.1 [id number] Univers 20:15:00 20:20:00 Procedure 37109.1.1 it y of 3.412.2.7 [place] .3.365057 MD Hoffman8 [facility] 2021-09-24 2021-09-24 Ancillary 1.2.840.1 [id number] [id number] Univers 20:10:00 20:15:00 Procedure 12942.1.1 it y of 3.412.2.7 [place] .3.478764 .8 [facility] 2021-09-24 2021-09-24 Ancillary 1.2.840.1 [id number] [id number] Univers 20:05:00 20:10:00 Procedure 86345.1.1 it y of 3.412.2.7 [place] .3.727223 .8 [facility] 2021-09-24 2021-09-24 Ancillary 1.2.840.1 [id number] [id number] Univers 20:00:00 20:05:00 Procedure 51808.1.1 it y of 3.412.2.7 [place] .3.591437 .8 [facility] 2021-09-24 2021-09-24 Outpatient EL MDA MDA [id number] MD 14:58:47 14:58:47 Marlon o n 2021-09-24 2021-09-24 Outpatient EL MDA MDA [id number] MD 14:58:44 14:58:44 Marlon o n 2021-09-24 2021-09-24 Outpatient EL MDA MDA [id number] MD 14:58:39 14:58:39 Marlon o n 2021-09-24 2021-09-24 Outpatient EL MDA MDA [id number] MD 14:58:35 14:58:35 Marlon o n 2021-09-24 2021-09-24 ambulatory STLMLC STLMLC [id number] Common 00:00:00 00:00:00 [facility] 2021-09-12 2021-09-12 ambulatory STLMLC STLMLC [id number] Common 00:00:00 00:00:00 [facility] 2021-08-12 2021-08-12 Outpatient STLMLC STLMLC [id number] Common 00:00:00 00:00:00 [facility] 2021-07-30 2021-07-30 [facility] 1.2.966.728 [id number] [facility] 15:14:42 23:59:00 Encounter Agus [place] 350.1.13.10 ity [facility]7.2.686 [id number] [facility] [address] 2021-07-30 2021-07-30 [facility] [id number]-20 Univers 15:15:00 15:15:00 AGUS [id number] [facility] 2021-07-30 2021-07-30 [facility] [id number] Univers 00:00:00 00:00:00 AGUS judd [facility] [place] [facility] 2021-07-30 2021-07-30 Orders Doctor SCHRADER 1.2.840.114 [id number] Univers 00:00:00 00:00:00 Only UnassignedZEN 350.1.13.10 ity of [facility] 4.2.7.2.686 Aime as [id number] [facility] [address] 2021-07-03 2021-07-03 Outpatient STLMLC STLMLC [id number] Common 00:00:00 00:00:00 [facility] 2021-06-24 2021-06-24 Outpatient STLMLC STLMLC [id number] Common 00:00:00 00:00:00 [facility] 2021-06-24 2021-06-24 Outpatient STLMLC STLMLC [id number] Common 00:00:00 00:00:00 [facility] 2021-06-19 2021-06-19 Outpatient STLMLC STLMLC [id number] Common 00:00:00 00:00:00 [facility] 2021-06-18 2021-06-18 Telephone RACIEL Mcclain 1.2.648.600 [id number] Univers 00:00:00 00:00:00 Keyla ZALDIVAR 350.1.13.10 i ty of [facility] 4.2.7.2.686 Aime as [id number] [facility] [address] 2021-06-16 2021-06-16 Outpatient R [facility] [id number] Univers 18:00:00 18:00:00 [id number] [facility] 2021-06-16 2021-06-16 Outpatient Guillermo GREGORY, [facility] [id number] Univers 18:00:00 18:00:00 EDGARD borja [facility] 2021-06-13 2021-06-13 Outpatient STLMLC STLMLC [id number] Common 00:00:00 00:00:00 [facility] 2021-06-13 2021-06-13 Outpatient STLMLC STLMLC [id number] Common 00:00:00 00:00:00 [facility] 2021-05-19 2021-05-19 Outpatient STLMLC STLMLC [id number] Common 00:00:00 00:00:00 [facility] 2020-12-28 2020-12-28 Outpatient [facility] [id number] Univers 14:00:00 14:00:00 [facility] 2020-12-19 2020-12-19 Outpatient STLMLC STLMLC [id number] Common 00:00:00 00:00:00 [facility] 2020-12-09 2020-12-09 Outpatient STLMLC STLMLC [id number] Common 00:00:00 00:00:00 [facility] 2020-11-30 2020-11-30 Outpatient [facility] [id number] Univers 14:30:00 14:30:00 [facility] 2020-11-29 2020-11-29 Outpatient STLMLC STLMLC [id number] Common 00:00:00 00:00:00 [facility] 2020-09-09 2020-09-09 Outpatient STLMLC STLMLC [id number] Common 00:00:00 00:00:00 [facility] 2020-08-20 2020-08-20 Outpatient STLMLC STLMLC [id number] Common 00:00:00 00:00:00 [facility] 2020-08-20 2020-08-20 Outpatient STLMLC STLMLC [id number] Common 00:00:00 00:00:00 [facility] 2020-08-15 2020-08-15 Outpatient STLMLC STLMLC [id number] Common 00:00:00 00:00:00 [facility] 2020-07-24 2020-07-24 Outpatient STLMLC STLMLC [id number] Common 00:00:00 00:00:00 [facility] 2020-07-22 2020-07-22 Outpatient STLMLC STLMLC [id number] Common 00:00:00 00:00:00 [facility] 2020-06-10 2020-06-10 [facility] [id number] Common 11:30:00 11:30:[address] [facility] 2020-03-08 2020-03-08 [facility] [id number] Common 11:15:00 11:15:[address] [facility] 2020-03-08 2020-03-08 [facility] [id number] Common 11:15:00 11:15:[address] [facility] 2020-01-19 2020-01-19 [facility] [id number] Common 08:19:00 08:19:[address] [facility] 2020-01-18 2020-01-18 [facility] [id number] Common 16:35:00 16:35:[address] [facility] 2020-01-01 2020-01-01 [facility] [id number] Common 13:30:00 13:30:[address] [facility] 2019-11-24 2019-11-24 [facility] [id number] Common 10:22:00 10:22:00 [facility] 2019-11-23 2019-11-23 [facility] [id number] Common 11:40:00 11:40:00 [facility] 2019-11-16 2019-11-16 Outpatient Shameka Mylest [id number] Common 14:30:00 14:30:00 [facility] 2018-11-16 2018-11-16 [facility]patient [facility] [id number] Common 14:30:00 14:30:00 [facility] 2018-10-05 2018-10-05 Outpatient [facility] [id number] Common 15:30:00 15:30:00 [facility] 2018-07-28 2018-07-28 Outpatient [facility] [id number] Common 14:00:00 14:00:00 [facility] 2018-06-30 2018-06-30 Outpatient [facility] [id number] Common 14:00:00 14:00:00 [facility] Results Test Description Test Time Test Comments Results Result Comments Source Mammography Digital Diagnostic Bilateral with Jeffry 7 19:47:52 Test Item Value Reference Range Interpretation Comme nts Radiology Study observation (narrative) (test code = 47809-9) IMP (test code = IMP) 1: Area in the right breast requires additional imaging evaluation. Anultrasound exam is recommended. 2: Areas of nodularity in both breasts require additional imaging evaluation.An ultrasound exam is recommended. BI-RADS Category 0:Incomplete: Needs Additional Imaging Evaluation PXN (test code = PXN) Abbey Black MD - 10/31/2021 CLINICAL INDICATION:Patient is a 71 year old female and is seen for additional evaluation requestedfrom prior study MAMMO DIGITAL DIAGNOSTIC BILATERAL W TOMODigital Mammogram evaluated with Computer Aided Detection (CAD). COMPARISON:The present examination has been compared to prior imaging studies performed atan outside location on 02/10/2017, 04/25/2019, 08/14/2020 and 08/18/2021. FINDINGS:There are scattered areas of fibroglandular density. 1: There is no radiographic abnormality in the region of the non-bloody nippledischarge in the right breast. Patient reports two episode history ofnon-spontaneous clear/yellow colored nipple discharge. 2: There are areas of nodularity in both breasts. Tomosynthesis performed in CC and MLO projections. IMPRESSION:1: Area in the right breast requires additional imaging evaluation. Anultrasound exam is recommended. 2: Areas of nodularity in both breasts require additional imaging evaluation.An ultrasound exam is recommended. BI-RADS Category 0:Incomplete: Needs Additional Imaging Evaluation Lab Interpretation (test code = Abnormal 74355-1) [facility] [place] [id number] 13:10:00 Test Item Value Reference Range Interpretation Comments IMMUNOGLOBULIN E (test 90 IU/mL 6-495 Perfo rmed At: BN code = IGE) [facility] [address] [id number] ra Sarah RUBIO Ph:[phone] - XR [id number] 12:16:00 Name: MATTHEW HAYES [place] : 1950 Age/S: 69 / F [id number] Unit #: [id number] Loc: [place] [address] Phys: Agus Che MD Acct: [id number] Dis Date: Status: REG CLI PHONE #: [phone] Exam Date: 08/14/2019 1043 FAX #: Reason: J45.998 EXAMS: CPT: [id number] XR ESOPHAGUS 44849 Fluoro Time: 234 DAP (Gy m2): Air Kerma (mGy): 34.30 EXAMINATION: - XR ESOPHAGUS. LOCATION: S17. HISTORY: J45.998, asthma, occasional difficulty with food. C OMPARISON: None. TECHNIQUE: Single and double contrast upper GI was performed with barium oral contrast and overhead spot films were obtained. Fluoroscopic time: 234 seconds. 34.30 mGy. FINDINGS: Drain Cleaner image of the chest appears unremarkable with atherosclerosis involving aortic arch. The esophagus is unremarkable in course and caliber. Esophageal mucosal pattern is unremarkable. Gastroesophageal junction [...] involving distal esophagus. Possible small hiatal hernia. Electronical ly Signed by Dee Fischer on 08/14/2019 at 1216 Reported and signed by: Tanisha Fischer M.D. CC: Agus Che MD; Sagar Shelley MD PAGE 1 Signed Report Na me: MATTHEW HAYES : 1950 Age/S: 69/ F [id number] Unit #: [id number] Loc: [place] [address] Phys: Agus Che MD Acct: [id number] Dis Date: Status: REG CLI PHONE #: [phone] Exam Date: 08/14/2019 1047 FAX #: Reason: J45.998 EXAMS: CPT: [id number] XR ESOPHAGUS 76746 Fluoro Time: 234DAP (Gy m2): Air Kerma (mGy): 34.30 <Continued> Technologist: Any Charles RT(R) Trnscb Date/Time: 08/14/2019 (1216) [email or web address] Orig Print D/T: S: 08/14/2019 (1220) PAGE 2 Signed Report- XR CHEST 2 V 2019-08-14 11:13:00 Name: MATTHEW HAYES [place] : 1950 Age/S: 69 / F [address] Unit #: [id number] Loc: [place] [address] Phys: Agus Che MD Acct: [id number] Dis Date: Status: REG CLI PHONE #: [phone] Exam Date: 08/14/2019 1038 FAX #: Reason: J45.998 EXAMS: CPT: [id number] XR CHEST 2 V 00920 Fluoro Time: DAP (Gy m2): Air Kerma (mGy): EXAMINATION: - XR CHEST 2 V. LOCATION: S17. HISTORY: J45.628. COMPARISON: None. FINDINGS:Examination limited due to patient [...] PAGE 1 Signed Report Name: MATTHEW HAYES [facility] : 1950 Age/S: 69 / F [id number]: [id number] Loc: [place] [address] Phys: Agus Che MD Acct: [id number] Dis Date: Status:REG CLI PHONE #: [phone] Exam Date: 08/14/2019 1038 FAX #: Reason: E92.871 EXAMS: CPT: [id number] XR CHEST 2 V 54336 Fluoro Time: DAP (Gy m2): Air Kerma (mGy): <Continued> Technologist: RT Daria(R) Trnscb Date/Time: 08/14/2019 (1113) [email or web address] Orig Print D/T: S: 08/14/2019 (1117) PAGE 2 Signed ReportCBC W/AUTO [id number] 10:25:00 Test Item Value Reference Range Interpretation Comments WHITE BLOOD CELL (test code = 6.3 K/mm3 3.5-11.0 N WBC) RED BLOOD CELL (test code = RBC) 4.80 M/mm3 4.70-6.10 N HEMOGLOBIN (test code = HGB) 14.1 G/DL 10.4-14.9 N HEMATOCRIT (test code = HCT) 41.2 % 31.5-44.1 N MEAN CELL VOLUME (test code = 85.8 Fl 84.5-98.6 N MCV) MEAN CELL HGB (test code = MCH) 29.4 pg 27.0-34.2 N MEAN CELL HGB CONCETRATION (test 34.2 G/DL 31.5-34.0 H code = MCHC) RED CELL DISTRIBUTION WIDTH (test 14.0 SD 11.5-14.5 N code = RDW) PLATELET COUNT (test code = PLT) 250.0 K/mm3 150-450 N MEAN PLATELET VOLUME (test code = 9.30 fL 7.0-10.5 N MPV) NEUTROPHIL % (test code = NT%) 60.9 % 40-76 N LYMPHOCYTE % (test code = LY%) 27.2 % 20.5-51.1 N MONOCYTE % (test code = MO%) 8.1 % 1.7-9.3 N EOSINOPHIL % (test code = EO%) 3.3 % 0.0-6.0 N BASOPHIL % (test code = BA%) 0.5 % 0.0-2.0 N NEUTROPHIL # (test code = NT#) 3.86 K/mm3 1.8-7.6 N LYMPHOCYTE # (test code = LY#) 1.7 K/mm3 0.6-3.2 N MONOCYTE # (test code = MO#) 0.5 K/mm3 0.3-1.1 N EOSINOPHIL # (test code = EO#) 0.2 K/mm3 0.0-0.4 N BASOPHIL # (test code = BA#) 0.0 K/mm3 0.0-0.1 N MANUAL DIFF REQUIRED (test code = NO DIFF/SCN CRITERIA MDIFF)
--- NOTE | 2022-04-07 04:14 | ER ---
Nurse's Notes [facility] Name: Rachel Oconnor Age: 72 yrs Sex: Female : 1950 Arrival Date: 04/07/2022 Time: 01:39 Bed 12 Private MD: Diagnosis: Fall on same level, unspecified;Contusion of left hip Presentation: 04/07 02:25 Chief complaint: Patient states: she fell a week ago when she got her flip-flop caught bb on something in the bathroom and fell injuring her left hip it has a large bruise and she is having stabbing pain in it now. Coronavirus screen: At this time, the client does not indicate any symptoms associated with coronavirus-19. Ebola Screen: No symptoms or risks identified at this time. Initial Sepsis Screen: Does the patient meet any 2 criteria? No. Patient's initial sepsis screen is negative. Does the patient have a suspected source of infection? No. Patient's initial sepsis screen is negative. Risk Assessment: Do you want to hurt yourself or someone else? Patient reports no desire to harm self or others. Onset of symptoms was March 31, 2022. 02:25 Method Of Arrival: Ambulatory bb 02:25 Acuity: PHIL 4 bb Triage Assessment: 02:27 General: Appears in no apparent distress. uncomfortable, Behavior is calm, cooperative. bb Pain: Complains of pain in left hip Pain currently is 5 out of 10 on a pain scale. at worst was 10 out of 10 on a pain scale. Neuro: Level of Consciousness is awake, alert, obeys commands, Oriented to person, place, time, situation. Cardiovascular: Capillary refill < 3 seconds Patient's skin is warm and dry. Respiratory: Respiratory effort is even, unlabored, Respiratory pattern is regular. GI: No signs and/or symptoms were reported involving the gastrointestinal system. Derm: Skin is pink, warm \T\ dry. Musculoskeletal: Circulation, motion, and sensation intact. Reports pain in left hip. Historical: - Allergies: 02:27 Clindamycin; bb 02:27 COFFEE; bb 02:27 Ibuprofen; bb 02:27 Kiwi (Actinidia Chinensis); bb 02:27 PENICILLINS; bb 02:27 relafen; bb 02:27 shrimp; bb 02:27 Soy; bb - Immunization history:: Moderna x 3. - Social history:: Smoking status: Patient denies any tobacco usage or history of. - Family history:: not pertinent. Screenin:29 Abuse screen: Denies threats or abuse. Nutritional screening: No deficits noted. bb Tuberculosis screening: No symptoms or risk factors identified. Fall Risk None identified. Assessment: 02:29 Reassessment: No changes from previously documented assessment. Patient is alert, bb oriented x 3, equal unlabored respirations, skin warm/dry/pink. see triage assessment. Vital Signs: 02:25 BP 118 / 74; Pulse 69; Resp 18 S; Temp 98.3(TE); Pulse Ox 98% on R/A; Weight 118.84 kg bb (R); Height 5 ft. 8 in. (172.72 cm) (R); Pain 5/10; 02:25 Body Mass Index 39.84 (118.84 kg, 172.72 cm) bb ED Course: 01:39 Patient arrived in ED. ja2 02:27 Triage completed. bb 02:27 Arm band placed on Patient placed in an exam room. bb 02:29 Patient has correct armband on for positive identification. Bed in low position. Call bb light in reach. Side rails up X 1. 02:39 Luis Rueda MD is Attending Physician. liat 04:13 Judd Marcano MD is Referral Physician. liat 04:19 Pelvis XRAY In Process Unspecified. EDMS 04:19 Femur Left XRAY In Process Unspecified. EDMS 04:19 Lumbar Spine (3 Views) XRAY In Process Unspecified. EDMS 04:50 No provider procedures requiring assistance completed. Patient did not have IV access vc1 during this emergency room visit. Administered Medications: 03:12 CANCELLED (Patient Refused): [place] (HYDROcodone-acetaminophen) 10 mg-325 mg 1 tabs PO bb once Medication: 04:51 VIS not applicable for this client. vc1 Outcome: 04:13 Discharge ordered by . liat 04:50 Discharged to home ambulatory. vc1 04:50 Condition: good 04:50 Discharge instructions given to patient, Instructed on discharge instructions, follow up and referral plans. medication usage, Demonstrated understanding of instructions, follow-up care, medications, Prescriptions given X 1. 04:51 Patient left the ED. vc1 Signatures: Dispatcher [employer] EDLuis Covington MD MD liat Stratton, Francheska, RN RN bb Beth Alves Vanessa, RN RN vc1
--- NOTE | 2022-04-07 04:14 | EDPHYS ---
Physician Documentation [facility] Name: Rachel Oconnor Age: 72 yrs Sex: Female : 1950 Arrival Date: 04/07/2022 Time: 01:39 Bed 12 Private MD: STEVE Physician Luis Rueda HPI: 04/07 02:51 This 72 yrs old Female presents to ER via Ambulatory with complaints of left liat hip pain, fall 3 days ago. 02:51 The patient or guardian reports decreased range of motion, pain. [facility], a fall, There is no obvious deformity, The patient is able to self ambulate. The complaints affect the left hip. Onset: The symptoms/episode began/occurred 3 day(s) ago. Modifying factors: The symptoms are alleviated by nothing, remaining still, the symptoms are aggravated by any movement. The patient presents with decreased range of motion, pain, that is acute. The complaints affect the left hip. Historical: - Allergies: 02:27 Clindamycin; bb 02:27 COFFEE; bb 02:27 Ibuprofen; bb 02:27 Kiwi (Actinidia Chinensis); bb 02:27 PENICILLINS; bb 02:27 relafen; bb 02:27 shrimp; bb 02:27 Soy; bb - Immunization history:: Moderna x 3. - Social history:: Smoking status: Patient denies any tobacco usage or history of. - Family history:: not pertinent. ROS: 02:51 Constitutional: Negative for fever, chills, and weight loss, Eyes: Negative for injury, liat pain, redness, and discharge, ENT: Negative for injury, pain, and discharge, Neck: Negative for injury, pain, and swelling, Cardiovascular: Negative for chest pain, palpitations, and edema, Respiratory: Negative for shortness of breath, cough, wheezing, and pleuritic chest pain, Abdomen/GI: Negative for abdominal pain, nausea, vomiting, diarrhea, and constipation, Back: Negative for injury and pain, : Negative for injury, bleeding, discharge, and swelling, Skin: Negative for injury, rash, and discoloration, Neuro: Negative for headache, weakness, numbness, tingling, and seizure, Psych: Negative for depression, anxiety, suicide ideation, homicidal ideation, and hallucinations, Allergy/Immunology: Negative for hives, rash, and allergies, Endocrine: Negative for neck swelling, polydipsia, polyuria, polyphagia, and marked weight changes, Hematologic/Lymphatic: Negative for swollen nodes, abnormal bleeding, and unusual bruising. 02:51 MS/extremity: Positive for decreased range of motion, ecchymosis, pain, tenderness, of the left hip. Exam: 02:51 Constitutional: This is a well developed, well nourished patient who is awake, alert, liat and in no acute distress. Head/Face: Normocephalic, atraumatic. Eyes: Pupils equal round and reactive to light, extra-ocular motions intact. Lids and lashes normal. Conjunctiva and sclera are non-icteric and not injected. Cornea within normal limits. Periorbital areas with no swelling, redness, or edema. ENT: Nares patent. No nasal discharge, no septal abnormalities noted. Tympanic membranes are normal and external auditory canals are clear. Oropharynx with no redness, swelling, or masses, exudates, or evidence of obstruction, uvula midline. Mucous membranes moist. Neck: Trachea midline, no thyromegaly or masses palpated, and no cervical lymphadenopathy. Supple, full range of motion without nuchal rigidity, or vertebral point tenderness. No Meningismus. Chest/axilla: Normal chest wall appearance and motion. Nontender with no deformity. No lesions are appreciated. Cardiovascular: Regular rate and rhythm with a normal S1 and S2. No gallops, murmurs, or rubs. Normal PMI, no JVD. No pulse deficits. Respiratory: Lungs have equal breath sounds bilaterally, clear to auscultation and percussion. No rales, rhonchi or wheezes noted. No increased work of breathing, no retractions or nasal flaring. Abdomen/GI: Soft, non-tender, with normal bowel sounds. No distension or tympany. No guarding or rebound. No evidence of tenderness throughout. Back: No spinal tenderness. No costovertebral tenderness. Full range of motion. Female : Normal external genitalia. Skin: Warm, dry with normal turgor. Normal color with no rashes, no lesions, and no evidence of cellulitis. Neuro: Awake and alert, GCS 15, oriented to person, place, time, and situation. Cranial nerves II-XII grossly intact. Motor strength 5/5 in all extremities. Sensory grossly intact. Cerebellar exam normal. Normal gait. Psych: Awake, alert, with orientation to person, place and time. Behavior, mood, and affect are within normal limits. 02:51 Musculoskeletal/extremity: ROM: full active range of motion, full passive range of motion, Circulation is intact in all extremities. Sensation intact. Compartment Syndrome exam of affected extremity: is normal. DVT Exam: No signs of deep vein thrombosis. pain, swelling, tenderness, that is moderate, of the left leg, of the left hip. Vital Signs: 02:25 BP 118 / 74; Pulse 69; Resp 18 S; Temp 98.3(TE); Pulse Ox 98% on R/A; Weight 118.84 kg bb (R); Height 5 ft. 8 in. (172.72 cm) (R); Pain 5/10; 02:25 Body Mass Index 39.84 (118.84 kg, 172.72 cm) bb MDM: 02:39 Patient medically screened. liat 02:55 Differential diagnosis: closed fracture, contusion, hip fracture, intertrochanteric liat fracture, femoral neck fracture, femoral shaft fracture, bursitis, arthritis, strain. Data reviewed: vital signs, nurses notes, radiologic studies, plain films. Data interpreted: potline monitor: rate is 69 beats/min, Pulse oximetry: on room air is 98 %. Test interpretation: by ED physician or midlevel provider: plain radiologic studies. Counseling: I had a detailed discussion with the patient and/or guardian regarding: the historical points, exam findings, and any diagnostic results supporting the discharge/admit diagnosis, radiology results, the need for outpatient follow up, for definitive care, a family practitioner, a orthopedic surgeon. 04/07 02:51 [facility] 04/07 02:51 Order name: Femur Left [facility] 04/07 02:59 Order name: Lumbar Spine (3 Views) [facility] Administered Medications: 03:12 CANCELLED (Patient Refused): [place] (HYDROcodone-acetaminophen) 10 mg-325 mg 1 tabs PO bb once Disposition Summary: 04/07/22 04:13 Discharge Ordered Location: Home liat Problem: new liat Symptoms: have improved liat Condition: Stable liat Diagnosis - Fall on same level, unspecified liat - Contusion of left hip liat Followup: liat - With: Private Physician - When: 2 - 3 days - Reason: Recheck today's complaints, Continuance of care, Re-evaluation by your physician Followup: liat - With: - When: 2 - 3 days - Reason: Recheck today's complaints, Continuance of care, Re-evaluation by your physician Discharge Instructions: - Discharge Summary Sheet liat - Fall Prevention in the Home, Adult liat - Fall Prevention in the Home, Adult, [id number] liat - Hip Pain liat - Hip Sprain liat Forms: - Medication Reconciliation Form liat - Thank You Letter liat - Antibiotic Education liat - Prescription Opioid Use liat Prescriptions: - Tylenol-Codeine #3 300 mg-30 mg Oral - take 2 tablet by ORAL route every 6 hours; 24 tablet; Refills: 0, Product liat Selection Permitted Signatures: Dispatcher [employer] EDLuis Covington MD MD cha Ballard, Brenda RN RN bb Corrections: (The following items were deleted from the chart) 02:56 02:51 Hip Left 2 View+RAD.RAD.BRZ ordered. EDMS EDMS 03:04 02:59 Hip Left 2 View+RAD.RAD.BRZ ordered. EDMS EDMS 03:12 02:51 [place] (HYDROcodone-acetaminophen) 10 mg-325 mg 1 tabs PO once ordered. liat valverde
[2022-04-07 04:56] VITALS: BP 118/74; TEMP 98.3; O2SAT 98
--- NOTE | 2022-04-07 13:26 | RAD REPORT ---
EXAM DESCRIPTION: XR FEMUR 2 VIEWS TECHNIQUE: Left femur radiographs, AP and lateral views. CLINICAL HISTORY: Pain COMPARISON: None . FINDINGS: No fracture or dislocation. No focal osseous lesion. No radiopaque foreign body. IMPRESSION: No acute fracture or dislocation . Electronically signed by: Marla Mansfield MD 04/07/2022 5:35 AM CDT Due to temporary technical issues with the PACS/Fluency reporting system, reports are being signed by the in house radiologists without review as a courtesy to insure prompt reporting. The interpreting radiologist is fully responsible for the content of the report.
--- NOTE | 2022-04-07 13:27 | RAD REPORT ---
EXAM DESCRIPTION: XR LUMBAR SPINE 2-3 VIEWS TECHNIQUE: Lumbar spine radiographs, three views. CLINICAL HISTORY: Pain COMPARISON: None . FINDINGS: No scoliosis. Vertebral body heights and alignment are maintained. There are degenerative disc changes at L5-S1, with disc space narrowing and endplate sclerosis. IMPRESSION: No acute osseous abnormality . Electronically signed by: Marla Mansfield MD 04/07/2022 5:36 AM CDT Due to temporary technical issues with the PACS/Fluency reporting system, reports are being signed by the in house radiologists without review as a courtesy to insure prompt reporting. The interpreting radiologist is fully responsible for the content of the report.
--- NOTE | 2022-04-07 13:29 | RAD REPORT ---
EXAM DESCRIPTION: XR PELVIS 1-2 VIEWS TECHNIQUE: Pelvis radiograph, one view. CLINICAL HISTORY: Pain COMPARISON: None FINDINGS: No acute fracture is identified. No focal osseous lesion. No hip joint dislocation. IMPRESSION: No acute osseous abnormality Electronically signed by: Marla Mansfield MD 04/07/2022 5:34 AM CDT Due to temporary technical issues with the PACS/Fluency reporting system, reports are being signed by the in house radiologists without review as a courtesy to insure prompt reporting. The interpreting radiologist is fully responsible for the content of the report.
== END 2022-04-07 04:51 | disposition home or self-care (01) ==
LOC: ER 01:35
DX: S70.02XA Contusion of left hip, initial encounter (principal); W18.30XA Fall on same level, unspecified, initial encounter; Z88.0 Allergy status to penicillin; Z88.1 Allergy status to other antibiotic agents; Z88.3 Allergy status to other anti-infective agents; Z88.6 Allergy status to analgesic agent; Z88.8 Allergy status to other drugs, medicaments and biological substances; Z91.013 Allergy to seafood; Z91.018 Allergy to other foods
CPT/HCPCS: 72100; 72170; 99283

== ENCOUNTER 2023-03-19 15:56 | Emergency (ER) | payer OTHER, BC ==
--- OUTSIDE RECORDS SUMMARY | 2023-03-19 15:59 | XMS REPORT | Clinical Summary ---
:1950 Author Organization [facility] Address [address] [place] [address] Care Team Providers Name Role Phone Amina Waggoner APRN,BUD Primary Care Provider [phone] Allergies Active Allergy Reactions Severity Noted Date [...] Refills Start Date End Date Status albuterol (VENTOLIN as needed. 0 Active HFA,PROAIR HFA) 90 mcg/puff inhaler budesonide-formoterol as needed. 0 Active (SYMBICORT) 160-4.5 mcg/actuation inhaler celecoxib (CeleBREX) 200 Take 1 capsule 0 Active mg capsule (200 mg) by mouth daily. dexlansoprazole Take 1 capsule 0 Active (DEXILANT) 60 mg capsule (60 mg) by mouth daily. dicyclomine (BENTYL) 20 Take 1 tablet 0 Active mg tablet (20 mg) by mouth twice daily. escitalopram (LEXAPRO) Take 1 tablet 0 Active 20 mg tablet (20 mg) by mouth daily. fesoterodine (Toviaz) 4 Take 1 tablet by 0 Active mg Tb24 mouth daily. fluticasone as needed. 0 Active propionate-salmeterol (ADVAIR) 100 mcg-50 mcg/inhalation diskus inhaler furosemide (LASIX) 20 mg Take 1 tablet 0 Active tablet (20 mg) by mouth daily. gabapentin enacarbil Take 2 tablets 0 Active (Horizant) 600 mg TbER by mouth daily. HYDROcodone-acetaminophe Take 1 tablet by 0 Active n (NORCO) 7.5 mg-325 mg mouth 2 (two) per tablet times a day as needed. levocetirizine (XYZAL) 5 Take 1 tablet (5 0 Active MG tablet mg) by mouth daily. lisinopril Take 1 tablet 0 Activ e (PRINIVIL,ZESTRIL) 10 mg (10 mg) by mouth tablet daily. METHIMAZOLE ORAL Take 15 mg by 0 Active mouth daily. metoprolol Take 1 tablet by 0 Ac tive russell-hydrochlorothiaz mouth daily. 50-12.5 mg Tb24 mirabegron (Myrbetriq) daily. 0 Active 50 mg 24 hr tablet montelukast (SINGULAIR) daily. 0 Active 10 mg tablet simvastatin (ZOCOR) 20 Take 1 tablet 0 08/12/2021 Active mg tablet (20 mg) by mouth daily. tiZANidine (ZANAFLEX) 4 Take 1 tablet (4 0 Active mg tablet mg) by mouth daily. DULoxetine (CYMBALTA) 20 0 12/03/2022 Active mg capsule pantoprazole (PROTONIX) Take by mouth 0 11/04/2022 Active 40 mg EC tablet daily. UNABLE TO FIND Insert into the 0 Active vagina as needed. Med Name: Estrogen vaginal cream as needed. Active Problems No known active problems Encounters Date Type Specialty Care Team Description 12/29/2022 Ancillary Procedure Radiology Amina Waggoner Screeni ng Y, CREDIT ADMINISTRATION MANAGER,SUPERVISOR [employer] 12/29/2022 Office Visit Cancer Prevention Amina Waggoner At risk o f breast cancer (Primary Dx); Y, CREDIT ADMINISTRATION MANAGER,SUPERVISOR [employer] Mastodynia; Family history of malignant neoplasm of breast 12/29/2022 Travel after 03/19/2022 Immunizations Name Administration Dates Next Due Influenza (IM) Preservative Free 07/24/2021 Influenza TIV (IM) 08/08/2021, 07/24/2021, 07/10/2020 Influenza, Quadrivalent 07/10/2020 Karl SARS-CoV-2 Vaccination 08/20/2021, 12/28/2020, 11/30 [...] Relation Name Comments Other Daughter katerin simmons ndrgab Breast cancer Maternal Aunt Diagnosed at age 80s Relation Name Status Comments Daughter Alive Maternal Aunt Social History Tobacco Use Types Packs/Day Years Used Date Smoking Tobacco: Never Smokeless Tobacco: Never Alcohol Use Standard Drinks/Week Comments Yes 0 (1 standard drink = 0.6 oz pure alcoho l) occs. 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 Patient denies any history of abnormal p ap smears. Patient denies any history of breast bibi jessica or breast biopsy. Last Filed Vital Signs Vital Sign Reading Time Taken Comments Blood Pressure 131/75 12/29/2022 9:31 AM STAGE SETTINGS PAINTER Pulse 67 12/29/2022 9:31 AM STAGE SETTINGS PAINTER Temperature - - Respiratory Rate 18 12/29/2022 9:31 AM STAGE SETTINGS PAINTER Oxygen Saturation - - Inhaled Oxygen Concentration - - Weight 115.8 kg (255 lb 4.7 oz) 12/29/2022 9:18 AM STAGE SETTINGS PAINTER Height 172 cm (5' 7.72") 12/29/2022 9:18 AM STAGE SETTINGS PAINTER Body Mass Index 39.14 12/29/2022 9:18 AM STAGE SETTINGS PAINTER Plan of Treatment Date Type Specialty Care Team Description 01/04/2024 Ancillary Procedure Radiology Amina Waggoner, CREDIT ADMINISTRATION MANAGER,SUPERVISOR [employer] [address] [place], [place] [address] (Wo rk) 01/04/2024 Office Visit Cancer Prevention Amina Waggoner APRN,SUPERVISOR [employer] [address] [place], [place] [address] (Wo rk) Health Maintenance Due Date Last Done Comments COVID-19 Vaccination (5 - Moderna 10/15/2021 08/20/2021, , series) 12/28/2020, Additional history exists Procedures Procedure Name Priority Date/Time Associated Diagnosis Comme nts MAMMO DIGITAL Routine 12/29/2022 10:15 AM Screening Results for this SCREENING BILATERAL STAGE SETTINGS PAINTER procedur e are in [facility] the results section. after 03/19/2022 Results Mammography Digital Screening Bilateral with Jeffry (12/29/2022 10:15 AM STAGE SETTINGS PAINTER) Anatomical Region Laterality Modality Breast Bilateral Mammography Specimen (Source) Anatomical Collection Method Collection Time Re ceived Time Location / / Volume Laterality 12/29/2022 11:07 AM STAGE SETTINGS PAINTER Impressions 12/29/2022 11:07 AM STAGE SETTINGS PAINTER There is no mammographic evidence of malignancy. Follow-up mammogram in 1 year is recomme nded. I personally reviewed these image(s) jessica hendrickson with the resident's/fellow's interpretations, certify that if a proce dure was performed I was physically present, and agree with the final report . BI-RADS Category 2: Benign Finding(s) Narrative 12/29/2022 11:07 AM STAGE SETTINGS PAINTER CLINICAL INDICATION: Patient is a 72 year old female and is s een for screening. MAMMO DIGITAL SCREENING BILATERAL [facility] JEFFRY Digital Mammogram evaluated with Compute r Aided Detection (CAD). COMPARISON: The present examination has been compare d to prior imaging studies performed at an outside location on 02/10/2017, 04/25, 08/14/2020 and 08/18/2021, and at [facility] o n 10/31/2021. FINDINGS: There are scattered areas of fibroglandu lar density. There are benign appearing calcification s in both breasts. Finding remains unchanged from the prior study. Tomosynthesis performed in CC and MLO pr ojections. Procedure Note Laura Perez MD - 12/29/2022Formattin g of this note might be different from the original. CLINICAL INDICATION: Patient is a 72 year old female and is s een for screening. MAMMO DIGITAL SCREENING BILATERAL W JEFFRY Digital Mammogram evaluated with Compute r Aided Detection (CAD). COMPARISON: The present examination has been compare d to prior imaging studies performed at an outside location on 02/10/2017, 04/25, 08/14/2020 and 08/18/2021, and at [facility] o n 10/31/2021. FINDINGS: There are scattered areas of fibroglandu lar density. There are benign appearing calcification s in both breasts. Finding remains unchanged from the prior study. Tomosynthesis performed in CC and MLO pr ojections. IMPRESSION: There is no mammographic evidence of mal ignancy. Follow-up mammogram in 1 year is recomme nded. I personally reviewed these image(s) jessicaalonzo hendrickson with the resident's/fellow's interpretations, certify that if a proce dure was performed I was physically present, and agree with the final report . BI-RADS Category 2: Benign Finding(s) BUD Ortega APRN [place] MAMMOGRAPHY ORDERABLES after 03/19/2022 Insurance Payer Benefit Plan Subscriber ID Effective Phone Address Typ e / Group Dates MEDICARE MEDICARE PART [id number] 2017-Prese [phone] [facility] Medicare A AND B nt [employer] [address] [place] [phone] [employer] [place] PPO [id number] 2018-Pres [address] [employer]UE [employer] POS ent [id number] [place] [address] Care Teams Machine Sander Relationship Specialty Start Date End Date Amina Waggoner KYLE,SUPERVISOR [employer] PCP - General Cancer Prevention 10/31/[address] [place] [address] [phone]
--- OUTSIDE RECORDS SUMMARY | 2023-03-19 16:06 | XMS REPORT | Continuity of Care Document ---
:1950 Author Organization [facility] t Address [address] [facility] [address] [place] [address] Care Team Providers Name Role Phone [phone] Primary Care Physician Unavailable Luis Felipe Cates Attending Clinician Unavailable SYSTEM, PROVIDER NOT IN Attending Clinician Unavailable BUD Hernandez APRN, Zohra Y Attending Clinician AMINA HERNANDEZ Attending Clinician Unavailable Debra Pace RN Attending Clinician Unavailable Merritt Moise Attending Clinician Barb Navarro Attending Clinician MERRITT SCHUMACHER Attending Clinician Unavailable Agus Childs MD Attending Clinician AGUS CHILDS Attending Clinician Unavailable Doctor Unassigned, Kenly Attending Clinician Unavailable Keyla Mcclain RN Attending Clinician Unavailable BRI, EDGARD Attending Clinician Unavailable Payers Payer Name Policy Type Policy Number Effective Date Expiration Date Valdo piña Blue Cross Blue C1 [id number] Common Sp iam Shield of [facility] MEDICARE MB [id number] [facility] Cross Blue C1 [id number] Common Sp iam Shield of [facility] MEDICARE MB [id number] Common Spirit NOVITAS [facility] MEDICARE MB [id number] [facility] Spirit NOVITAS [facility] Blue Cross Blue C1 [id number] Common Sp iam Shield of [facility] MEDICARE MB [id number] Common [facility] Blue Cross Blue C1 [id number] Common Sp iam Shield of [facility] MEDICARE MB [id number] [facility] Blue Cross Blue C1 [id number] Common Sp iam Shield of [facility] Blue Cross Blue C1 [id number] Common Sp iam Shield of [facility] MEDICARE MB [id number] [facility] Blue Cross Blue C1 [id number] Common Sp iam Shield of [facility] MEDICARE MB [id number] Common Spirit [facility] MEDICARE MB [id number] Common [facility] Blue Cross Blue C1 [id number] Common Sp iam Shield of [facility] Blue Cross Blue C1 [id number] Common Sp iam Shield of [facility] MEDICARE MB [id number] [facility] Problems Condition Condition Condition Status Onset Resolution Last Treating Co mments Source Name Details Category Date Date Treatment Clinician Date 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 ICD10 Diagnosis Term [employer] Hypothyroi Hypothyroi Disease Active Overview : Univers dism dism 2-20 Formattin ity of 00:00: g of this [place] note Medical might be Branch different from the original. ICD10 Diagnosis Term Electrician Helper Utility Abnormal Abnormal Problem Commo n mammogram mammogram Spir it - [facility] [id number] Contusion Problem Co mmon [id number] [facility] left [facility] [id number] Hemorrhagi Problem Com mon c Spirit prepatella - [facility] r bursitis [facility] of left [facility] [id number] Mixed Problem Common hyperlipid [facility] emia [facility] [id number] Body mass Problem Com mon index [facility] [BMI] - [facility] 39.0-39.9, [facility] [id number] Morbid Problem Commo n 9104 (severe) Spirit obesity - [facility] due to [facility] [id number] Localized Problem Com mon edema [facility] [id number] Chronic Problem Commo n pain Spirit syndrome - [facility] [id number] Overactive Problem Co mmon bladder [facility] [id number] Hyperthyro Problem Com mon idism [facility] [id number] Generalize Problem Com mon d anxiety Spirit disorder - [facility] [id number] Mild Problem Common intermitte Spirit nt - [facility] extrinsic [facility] without Medical complicati Center on [id number] Kyphosis Problem Comm on of [facility] cervical - [facility], [facility]phosis Medica l type Center [id number] GERD Problem Common without Spirit esophagiti - [facility] s [facility] [id number] Memory Problem Common changes [facility] [id number] Irritable Problem Com mon bowel Spirit syndrome - [facility] with [facility] [id number] Contusion Problem Comm on of left Spirit knee, - [facility] initial [facility] 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 Sp iam ce incontinen - [facility] ce [facility] [id number] Essential Problem Comm on hypertensi Spirit on - [facility] [id number] Pain in Problem Common joint of Spirit left knee - [facility] [id number] Non-season Problem Com mon al Spirit allergic - [facility] rhinitis, St unspecifie [facility] [id number] Current Problem Common moderate Spirit episode of - [facility] major [facility] Center prior episode [id number] 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 - [facility] [id number] Lumbar Problem Common disc Spirit herniation - [facility] [id number] Adult BMI Problem Com mon 40.0-44.9 Spirit kg/sq m - [facility] Allergies, Adverse Reactions, Alerts Allergy Allergy Status Severity Reaction(s) Onset Inactive Treating Comm ents Source Name Type Date Date Clinician Cochinea Propensi Active Rash Univer s l ty to 10-31 ity of adverse 00:00: [place] reaction 00 MD valdo fleming [facility] COCHINEA DRUG Active Low Rash 2021-0 MD L INGREDI 10-31 Anderso 00:00: n 00 COCHINEA DRUG Active Low Rash 2-0 MD L INGREDI 10-31 Anderso 00:00: n 00 COCHINEA DRUG Active Low Rash 2-0 MD L INGREDI 10-31 Anderso 00:00: n 00 COCHINEA DRUG Active Low Rash 2-0 MD L INGREDI 10-31 Anderso 00:00: n 00 COCHINEA DRUG Active Low Rash 2-0 MD L INGREDI 10-31 Anderso 00:00: n 00 COCHINEA DRUG Active Low Rash 2-0 MD L INGREDI 10-31 Anderso 00:00: n 00 COCHINEA DRUG Active Low Rash 2-0 MD L INGREDI 10-31 Anderso 00:00: n 00 Sucralfa Drug Active Swelling 2020-10 Univer s te Allergy 2- ity of 00:00: [place] 00 MD Marilee fleming [facility] Oxybutyn Drug Active Other (See 2020-10 Univ ers in Allergy Comments) 2 ity of 00:00: [place] 00 MD Marilee fleming [facility] OXYBUTYN DRUG Active Diarrhea 2020-10 MD IN INGREDI 2-03 Anderso 00:00: n 00 SUCRALFA DRUG Active Other 2020-10 MD TE INGREDI 2-03 Anderso 00:00: n 00 OXYBUTYN DRUG Active Diarrhea 2020-10 MD IN INGREDI 2-03 Anderso 00:00: n 00 SUCRALFA DRUG Active Other 2020-10 MD TE INGREDI 203 Anderso 00:00: n 00 OXYBUTYN DRUG Active Diarrhea 2020-10 MD IN INGREDI 203 Anderso 00:00: n 00 SUCRALFA DRUG Active Other 2020-10 MD TE INGREDI 2 Anderso 00:00: n 00 OXYBUTYN DRUG Active Diarrhea 2020-10 MD IN INGREDI 203 Anderso 00:00: n 00 SUCRALFA DRUG Active Other 2020-10 MD TE INGREDI 2 Anderso 00:00: n 00 OXYBUTYN DRUG Active Diarrhea 2020-10 MD IN INGREDI 2 Anderso 00:00: n 00 SUCRALFA DRUG Active Other 2020-10 MD TE INGREDI 2 Anderso 00:00: n 00 OXYBUTYN DRUG Active Diarrhea 2020-10 MD IN INGREDI 203 Anderso 00:00: n 00 SUCRALFA DRUG Active Other 2020-10 MD TE INGREDI 2 Anderso 00:00: n 00 OXYBUTYN DRUG Active Diarrhea 2020-10 MD IN INGREDI 2-03 Anderso 00:00: n 00 SUCRALFA DRUG Active Other 2020-10 MD TE INGREDI 2 Anderso 00:00: n 00 SULFA Drug Active Rash 2009- Univers (SULFONA Class 6-01 ity of MIDE 00:00: [place] ANTIBIOT 00 Medical ICS) Branch Sulfa Propensi Active Rash 2009- Univers (Sulfona ty to 6-01 ity of mide adverse 00:00: [place] Antibiot reaction 00 Medica l ics) s Branch Sulfa Propensi Active Rash 2009-0 Univers (Sulfona ty to 6-01 ity of mide adverse 00:00: [place] Antibiot reaction 00 Medica l ics) s Branch soy DA Active U 2009- [facility] isoflavo 3-20 [place] ne 00:00: d 00 Medical [place] Shellfis DA Active U 2010-0 [facility] h 3-20 [place] 00:00: d 00 [facility] clindamy DA Active U 2010-0 [facility] lawson 3-20 [place] 00:00: d 00 [facility] ramipril DA Active U 2010-0 [facility] 3-20 [place] 00:00: d 00 [facility] nabumeto DA Active U 2010-0 [facility] ne 3-20 [place] 00:00: d 00 [facility] penicill DA Active U 2010-0 [facility] in G 3-20 [place] 00:00: d 00 [facility] milk FA Active U 2010-0 [facility] 3-20 [place] 00:00: d 00 [facility] kiwi FA Active U 2009-0 [facility] 3-20 [place] 00:00: d 00 [facility] coffee FA Active U 2009-0 [facility] (Coffea 3-20 [place] arabica) 00:00: d 00 [facility] CHOCOLAT DA Active U 2010-0 [facility] E 3-20 [place] 00:00: d 00 [facility] EGGS DA Active U 2009-0 [facility] 3-20 [place] 00:00: d 00 [facility] MELONS DA Active U 2010-0 [facility] 3-20 [place] 00:00: d 00 [facility] PEARS DA Active U 2010-0 [facility] 3-20 [place] 00:00: d 00 [facility] RAMIPRIL DRUG Active Other 2008- MD INGREDI 206 Anderso 00:00: n 00 CLINDAMY DRUG Active Low Rash 2008-0 MD LAWSON INGREDI 2- Anderso 00:00: n 00 NABUMETO DRUG Active Low Rash 2008-0 MD NE INGREDI 206 Anderso 00:00: n 00 PENICILL Drug Active Low Rash 2008- MD INS Class 2-06 Anderso 00:00: n 00 RAMIPRIL DRUG Active Other 2008- MD INGREDI 2-06 Anderso 00:00: n 00 CLINDAMY DRUG Active Low Rash 2008-0 MD LAWSON INGREDI 2-06 Anderso 00:00: n 00 NABUMETO DRUG Active Low Rash 2008-0 MD NE INGREDI 206 Anderso 00:00: n 00 PENICILL Drug Active Low Rash 2008-0 MD INS Class 2-06 Anderso 00:00: n 00 RAMIPRIL DRUG Active Other 2008- MD INGREDI 206 Anderso 00:00: n 00 CLINDAMY DRUG Active Low Rash 2008- MD LAWSON INGREDI 2-06 Anderso 00:00: n 00 NABUMETO DRUG Active Low Rash 2008- MD NE INGREDI 2-06 Anderso 00:00: n 00 PENICILL Drug Active Low Rash 2008-0 MD INS Class 2-06 Anderso 00:00: n 00 RAMIPRIL DRUG Active Other 2008- MD INGREDI 2-06 Anderso 00:00: n 00 CLINDAMY DRUG Active Low Rash 2008- MD LAWSON INGREDI 2-06 Anderso 00:00: n 00 NABUMETO DRUG Active Low Rash 2008- MD NE INGREDI 2-06 Anderso 00:00: n 00 PENICILL Drug Active Low Rash 2008- MD INS Class 2-06 Anderso 00:00: n 00 RAMIPRIL DRUG Active Other 2008- MD INGREDI 2-06 Anderso 00:00: n 00 CLINDAMY DRUG Active Low Rash 2008- MD LAWSON INGREDI 2-06 Anderso 00:00: n 00 NABUMETO DRUG Active Low Rash 2008- MD NE INGREDI 2-06 Anderso 00:00: n 00 PENICILL Drug Active Low Rash 2008- MD INS Class 2-06 Anderso 00:00: n 00 RAMIPRIL DRUG Active Other 2008- MD INGREDI 2-06 Anderso 00:00: n 00 CLINDAMY DRUG Active Low Rash 2008-0 MD LAWSON INGREDI 2-06 Anderso 00:00: n 00 NABUMETO DRUG Active Low Rash 2008- MD NE INGREDI 2-06 Anderso 00:00: n 00 PENICILL Drug Active Low Rash 2008- MD INS Class 2-06 Anderso 00:00: n 00 Penicill Drug Active Other (See Univ ers ins Allergy Comments) 2-06 ity of 00:00: [place] 00 MD [facility] Ramipril Drug Active Other (See Univ ers Allergy Comments) 2- ity of 00:00: [place] 00 MD Marilee [facility] Clindamy Drug Active Other (See Other Univ ers lawson Allergy Comments) 2 reaction( ity of 00:00: s): [place] 00 Unknown - MD See Anderso comments n [facility] Nabumeto Drug Active Other (See Univ ers ne Allergy Comments) 2-06 ity of 00:00: [place] 00 MD Marilee [facility] Penicill Drug Active Other (See Univ ers ins Allergy Comments) 2-06 ity of 00:00: [place] 00 MD [facility] CLINDAMY DRUG Active Unknown-Cmnt Un maria alejandra LAWSON INGREDI 2-06 ity of 00:00: [place] 00 Medical Branch PENICILL Drug Active Unknown-Cmnt Un maria alejandra INS Class 2-06 ity of 00:00: [place] 00 Medical Branch RAMIPRIL DRUG Active Unknown-Cmnt Un maria alejandra INGREDI 2-06 ity of 00:00: [place] 00 Medical Branch NABUMETO DRUG Active Unknown-Cmnt Un maria alejandra NE INGREDI 2 ity of 00:00: [place] 00 Medical Branch Penicill Propensi Active Unknown - Uni vers ins ty to See comments 2-06 ity of adverse 00:00: [place] reaction 00 Medical s Branch Penicill Propensi Active Unknown - Uni [...] 00:00: [place] reaction 00 Medical s Branch RAMIPRIL DRUG Active Other MD INGREDI 11-30 Anderso 00:00: n 00 CLINDAMY DRUG Active Low Rash LAWSON INGREDI 11-30 Anderso 00:00: n 00 NABUMETO DRUG Active Low Rash NE INGREDI 11-30 Anderso 00:00: n 00 PENICILL Drug Active Low Rash MD INS Class 2 Anderso 00:00: n 00 [id number] Drug Active Unknown Common allergy [facility] 70634 Drug Active Unknown Common allergy [facility] Clindamy Clindamy Active Unknown Commo n lawson lawson [facility] colchici colchici Active Unknown Commo n ne ne [facility] Family History Family Member Diagnosis Comments Start Date Stop Date Source Natural daughter Other Universi ty [facility] Cance r [place] Maternal aunt [facility] [place] Social History Social Habit Start Date Stop Date Quantity Comments Source History of Common Spirit - Tobacco Use [facility] Sex Assigned At Common Sp iam - [facility] History SDOH University o f Alcohol Frequency [facility] History SDME University o f Alcohol Std [facility] History [facility] o f Alcohol Binge Shani higgins [facility] Tobacco use and 2022-12-29 2022-12-29 Smokeless tobacco Un iversity of exposure 00:00:00 00:00:00 non-user [facility] Alcohol intake 2022-12-29 2022-12-29 Current drinker Unive rsity of 00:00:00 00:00:00 of alcohol Shani RUBIO Jose reynaldo (finding) [facility] Center Exposure to 2022-07-16 2022-07-26 Yes [facility] 00:00:00 19:35:00 [facility] (event) Branch Alcohol Comment 2021-10-31 2021-10-31 occs. Universit y of 00:00:00 00:00:00 Shani jacobs [facility] Center Smoking Status Start Date Stop Date Source Never smoked tobacco [facility] Medications Ordered Filled Start Stop Current Ordering Indication Dosage Frequency Signature Comments Components Source Medication Medication Date Date Medication? Clinician (SIG) Name Name UNABLE TO Yes Insert Univer s FIND 12-29 into the ity of 09:41: vagina as [place] 15 needed. Med Name: Marilee Estrogen n vaginal Cancer cream as Center needed. levocetiriz Yes 5mg Take 1 Univ ers ine (XYZAL) 3-07 tablet (5 ity of 5 MG tablet 09:30: mg) by Gregory lyle 19 mouth daily. [facility] lisinopril Yes 10mg Take 1 Unive rs (PRINIVIL,Z 3-07 tablet (10 it y of ESTRIL) 10 09:30: mg) by Shani mg tablet 19 mouth daily. [facility] METHIMAZOLE Yes 15mg Take 15 mg Univers ORAL 3-07 by mouth ity of 09:30: daily. [place] [facility] metoprolol Yes 1{tbl} Take 1 Uni vers russell-hydrochl 3-07 tablet by ity of orothiaz 09:30: mouth [place] 50-12.5 mg 19 daily. Tb24 [facility] mirabegron 0 Yes daily. Unive rs (Myrbetriq) 3-07 ity of 50 mg 24 hr 09:30: [place] tablet 19 [facility] montelukast 0 Yes daily. Univ ers (SINGULAIR) 3-07 ity of 10 mg 09:30: [place] tablet 19 [facility] tiZANidine Yes 4mg Take 1 Unive rs (ZANAFLEX) 3-07 tablet (4 ity of 4 mg tablet 09:30: mg) by Gregory lyle 19 mouth daily. [facility] albuterol Yes as needed. Un maria alejandra (VENTOLIN 3-07 ity of HFA,PROAIR 09:28: [place] HFA) 90 08 MD mcg/puff Anderso inhaler [facility] budesonide- Yes as needed. Univers formoterol 3-07 ity of (SYMBICORT) 09:28: [place] 160-4.5 08 MD mcg/actuati Anderso on inhaler [facility] celecoxib Yes 200mg Take 1 Unive rs (CeleBREX) 3-07 capsule ity of 200 mg 09:28: (200 mg) [place] capsule 08 by mouth MD daily. [facility] dexlansopra Yes 60mg Take 1 Univ ers zole 3-07 capsule ity of (DEXILANT) 09:28: (60 mg) by Stuart francois 60 mg 08 mouth MD capsule daily. [facility] dicyclomine Yes 20mg Take 1 Univ ers (BENTYL) 20 3-07 tablet (20 it y of mg tablet 09:28: mg) by [place] 08 mouth twice Andersalonzo daily. [facility] escitalopra Yes 20mg Take 1 Univ ers m (LEXAPRO) 3-07 tablet (20 it y of 20 mg 09:28: mg) by [place] tablet 08 mouth daily. [facility] fesoterodin Yes 1{tbl} Take 1 Un maria alejandra e (Toviaz) 3-07 tablet by ity of 4 mg Tb24 09:28: mouth [place] 08 daily. MD Hunt [facility] fluticasone Yes as needed. Univers propionate- 3-07 ity of salmeterol 09:28: [place] (ADVAIR) 08 MD 100 mcg-50 Anderso mcg/inhalat n ion diskus [facility] furosemide Yes 20mg Take 1 Unive rs (LASIX) 20 3-07 tablet (20 ity of mg tablet 09:28: mg) by [place] 08 mouth daily. [facility] gabapentin Yes 2{tbl} Take 2 Uni vers enacarbil 3-07 tablets by ity of (Horizant) 09:28: mouth [place] 600 mg TbER 08 daily. MD Hunt [facility] HYDROcodone Yes 1{tbl} Take 1 Un maria alejandra -acetaminop 3-07 tablet by ity of hen (NORCO) 09:28: mouth 2 Aime as 7.5 mg-325 08 (two) MD mg per times a Anderso tablet day as n needed. Cancer [place] DULoxetine Yes Univers (CYMBALTA) 2-09 ity of 20 mg 00:00: [place] capsule 00 [facility] pantoprazol Yes Take by Uni vers e 1-11 mouth ity of (PROTONIX) 00:00: daily. [place] 40 mg EC 00 tablet [facility] bromphenira 2021-10- No [id number] 5mL Take 5 mL Univers mine-pseudo 0-02 10-13 by mouth 4 i ty of ephedrine-D 00:00: 04:59 (four) Aime as M (BROMFED 00 :00 times Medical DM) 2-30-10 daily as Bran ch mg/5 mL needed for syrup Cold symptoms for up to 10 days. bromphenira 2021-10- No [id number] 5mL Take 5 mL Univers mine-pseudo 0-02 10-13 by mouth 4 i ty of ephedrine-D 00:00: 04:59 (four) Aime as M (BROMFED 00 :00 times Medical DM) 2-30-10 daily as Bran ch mg/5 mL needed for syrup Cold symptoms for up to 10 days. albuterol Yes as needed. Un maria alejandra (ProAir -07 ity of HFA) 90 08:09: [place] mcg/puff 07 inhaler Marilee [facility] budesonide- Yes as needed. Univers formoterol 07 ity of (SYMBICORT) 08:09: [place] 160-4.5 07 MD mackay/actuati Anderso on inhaler n [facility] celecoxib Yes 1{capsu Take 1 Uni vers (CeleBREX) 1-07 le} capsule by ity of 200 mg 08:09: mouth [place] capsule 07 daily. MD Marilee fleming [facility] dexlansopra Yes 1{capsu Take 1 U nivers zole 1-07 le} capsule by ity of (DEXILANT) 08:09: mouth [place] 60 mg 07 daily. MD inez Hunt [facility] dicyclomine Yes 1{tbl} Take 1 Un maria alejandra (BENTYL) 20 1-07 tablet by ity of mg tablet 08:09: mouth [place] 07 twice MD daily. Marilee [facility] escitalopra Yes 1{tbl} Take 1 Un maria alejandra m (LEXAPRO) 1-07 tablet by ity of 20 mg 08:09: mouth [place] tablet 07 daily. MD Marilee fleming [facility] fesoterodin Yes 1{tbl} Take 1 Un maria alejandra e (Toviaz) 1-07 tablet by ity of 4 mg Tb24 08:09: mouth [place] 07 daily. MD Marilee fleming [facility] fluticasone Yes as needed. [facility] propionate- 07 ity of salmeterol 08:09: [place] (ADVAIR) 07 100 mcg-50 Anderso mcg/inhalat n ion diskus Cancer inhaler Center furosemide Yes 1{tbl} Take 1 Uni vers (LASIX) 20 1-07 tablet by ity of mg tablet 08:09: mouth [place] 07 daily. MD Marilee fleming [facility] [place] gabapentin Yes 2{tbl} Take 2 Uni vers enacarbil 1-07 tablets by ity of (Horizant) 08:09: mouth [place] 600 mg TbER 07 daily. MD Marilee fleming [facility] HYDROcodone Yes 1{tbl} Take 1 Un maria alejandra -acetaminop 1-07 tablet by ity of hen (NORCO) 08:09: mouth 3 Aime as 7.5 mg-325 07 (three) MD mg per times a Anderso tablet day. n [facility] levocetiriz Yes 1{tbl} Take 1 Un maria alejandra ine (XYZAL) 1-07 tablet by ity of 5 MG tablet 08:09: mouth [place] 07 daily. MD Marilee fleming [facility] lisinopril Yes 1{tbl} Take 1 Uni vers (PRINIVIL,Z 1-07 tablet by ity of ESTRIL) 10 08:09: mouth [place] mg tablet 07 daily. MD Marilee fleming [facility] METHIMAZOLE Yes 15mg Take 15 mg Univers ORAL 1-07 by mouth ity of 08:09: daily. [place] 07 MD Marilee fleming [facility] metoprolol Yes 1{tbl} Take 1 Uni vers russell-hydrochl 1-07 tablet by ity of orothiaz 08:09: mouth [place] 50-12.5 mg 07 daily. Tb24 Marilee fleming [facility]on [facility]-07 ity of 50 mg 24 hr 08:09: [place] tablet 07 MD Marilee fleming [facility] montelukast Yes daily. Univ ers (SINGULAIR) 1-07 ity of 10 mg 08:09: [place] tablet 07 MD Marilee fleming [facility] tiZANidine Yes 1{tbl} Take 1 Uni vers (ZANAFLEX) 1-07 tablet by ity of 4 mg tablet 08:09: mouth [place] 07 daily. MD Marilee fleming [facility] [place] simvastatin 2020-10 Yes 20mg Take 1 Univ ers (ZOCOR) 20 0-19 tablet (20 ity of mg tablet 00:00: mg) by [place] 00 mouth daily. Marilee fleming [facility] simvastatin 2020-10 Yes 1{tbl} Take 1 Un maria alejandra (ZOCOR) 20 0-19 tablet by ity of mg tablet 00:00: mouth Shani 00 daily. MD Marilee fleming [facility] Benzonatate Benzonatate 1- No 1{capsu TID Benzonatat 200 MG 200 MG 8-30 le} e 200 MG 00:00: 00:00 00 :00 Benzonatate Benzonatate 2020- No 1{capsu TID Benzonatat 200 MG 200 MG 8-30 le} e 200 MG 00:00: 00:00 00 :00 Benzonatate Benzonatate 2020- No 1{capsu TID Benzonatat 200 MG 200 MG 8-30 le} e 200 MG 00:00: 00:00 00 :00 Azithromyci Azithromyci 2020-0 2020- No QD Azithromyc n 250 MG n 250 MG 8 08-25 in 250 MG 00:00: 00:00 00 :00 Azithromyci Azithromyci 2020-0 2020- No QD Azithromyc n 250 MG n 250 MG 8 08-25 in 250 MG 00:00: 00:00 00 :00 Premarin Premarin 2020-0 No Premarin 0.625 MG/GM 0.625 MG/GM 2-25 0.625 00:00: MG/GM 00 Premarin Premarin 2020-0 No Premarin 0.625 MG/GM 0.625 MG/GM 2-25 0.625 00:00: MG/GM 00 ProAir HFA ProAir HFA 2019-0 Yes Luis Felipe 2 puffs as Common 3- Cates needed Spirit 00:00: - [facility] 00 [facility] Methimazole Methimazole 2019-0 Yes Luis Felipe 1 tablet Common 11-16 Cates Spirit 00:00: - [facility] Myrbetriq Myrbetriq 2019-0 Yes Luis Felipe 1 tablet Common 11-16 Cates Spirit 00:00: - [facility] Lexapro Lexapro 2019-0 Yes Luis Felipe 1 tablet C ommon 11-16 Cates [facility] 00:00: - [facility] 00 [facility] Montelukast Montelukast 2020-0 Yes Luis Felipe 1 tablet Common Sodium Sodium 1-23 Cates Spirit 00:00: - [facility] 00 [facility] Bupivicaine Bupivicaine 2018-1 No 2.5mg Common Shelton Shelton 1-13 Spirit 00:00: - [facility] 00 [facility] Betamethaso Betamethaso 2018-1 No .5mL Common ne Sodium ne Sodium 1-13 Spiri t Phosphate Phosphate 00:00: - C [place] 00 [facility] Bupivicaine Bupivicaine 2018-1 No 2.5mg Common Shelton Shelton 1-13 Spirit 00:00: - [facility] 00 [facility] Betamethaso Betamethaso 2018-1 No .5mL Common ne Sodium ne Sodium 1-13 Spiri t Phosphate Phosphate 00:00: - C [place] 00 [facility] Bupivicaine Bupivicaine 2018-1 No 2.5mg Common [place] [place] [facility]13 Spirit 00:00: - [facility] 00 [facility] Betamethaso Betamethaso 2018-1 No .5mL Common ne Sodium ne Sodium 1-13 Spiri t Phosphate Phosphate 00:00: - C HI 00 [facility] Bupivicaine Bupivicaine 2018-1 No 2.5mg Common [place] 1-13 Spirit 00:00: - [facility] 00 [facility] Betamethaso Betamethaso 2018-1 No .5mL Common ne Sodium ne Sodium 1-13 Spiri t Phosphate Phosphate 00:00: - C HI 00 [facility] Bupivicaine Bupivicaine 2018-1 No Common [place] 1-13 Spirit 00:00: - [facility] 00 [facility] Betamethaso Betamethaso 2018-1 No Common ne Sodium ne Sodium 1-13 Spiri t Phosphate Phosphate 00:00: - C HI 00 [facility] Bupivicaine Bupivicaine 2018-1 No 2.5mg Common [place] 1-13 Spirit 00:00: - [facility] 00 [facility] Betamethaso Betamethaso 2018-1 No .5mL Common ne Sodium ne Sodium 1-13 Spiri t Phosphate Phosphate 00:00: - C HI 00 [facility] Bupivicaine Bupivicaine 2018-1 No 2.5mg Common [place] 1-13 Spirit 00:00: - [facility] 00 [facility] Betamethaso Betamethaso 2017-10 No .5mL Common ne Sodium ne Sodium 1-13 Spiri t Phosphate Phosphate 00:00: - C HI 00 [facility] Bupivicaine Bupivicaine 2017-10 No 2.5mg Common [place] 1-13 Spirit 00:00: - [facility] 00 [facility] Betamethaso Betamethaso 2017-10 No .5mL Common ne Sodium ne Sodium 1-13 Spiri t Phosphate Phosphate 00:00: - C HI 00 [facility] Bupivicaine Bupivicaine 2017-10 No 2.5mg Common [place] 1-13 Spirit 00:00: - [facility] 00 [facility] Betamethaso Betamethaso 2017-10 No .5mL Common ne Sodium ne Sodium 1-13 Spiri t Phosphate Phosphate 00:00: - C HI 00 [facility] Dexlansopra 2016-10 Yes Take by Uni vers zole 0-04 mouth ity of (DEXILANT) 15:10: after [place] 60 mg 08 meals and Medical capsule at Branch bedtime. Dexlansopra 2016-10 Yes Take by Uni vers zole 0-04 mouth ity of (DEXILANT) 15:10: after [place] 60 mg 08 meals and Medical capsule at Branch bedtime. NEXIUM 40 2016-10 Yes 1 a day Unive rs MG ORAL 0-04 ity of CPDR 15:07: [address] LEXAPRO 20 2016-10 Yes 1 a day Univ ers MG ORAL TAB 0-04 ity of 15:07: [address] HYDROCODONE 2016-10 Yes None Univer s -ACETAMINOP 0-04 Entered ity o f HEN 7.5-750 15:07: [place] MG ORAL TAB [address] [place] [address] CALCIUM 600 2016-10 Yes None Univer s MG ORAL CAP 0-04 Entered ity o f 15:07: [address] VITAMIN D-3 2016-10 Yes 2000IU a Un maria alejandra ORAL 0-04 day ity of 15:07: [address] ZYRTEC 10 2016-10 Yes 1 a day Unive rs MG ORAL TAB 0-04 ity of 15:07: [address] MUCINEX 2016-10 Yes prn Univers ORAL 0-04 ity of 15:07: [address] VESICARE 10 2016-10 Yes once daily Univers MG ORAL TAB 0-04 ity of 15:07: [address] rosuvastati 2016-10 Yes 10mg Take 10 mg Univers n (CRESTOR) 0-04 by mouth ity of 10 mg 15:07: daily. [place] tablet [address] [place] [address] celecoxib 2016-10 Yes 200mg Take 200 Uni vers (CELEBREX) 0-04 mg by ity of 200 mg 15:07: mouth [place] capsule 54 daily. [facility] NEXIUM 40 2016-10 Yes 1 a day Unive rs MG ORAL 0-04 ity of CPDR 15:07: [address] LEXAPRO 20 2016-10 Yes 1 a day Univ ers MG ORAL TAB 0-04 ity of 15:07: [address] HYDROCODONE 2016-10 Yes None Univer s -ACETAMINOP 0-04 Entered ity o f HEN 7.5-750 15:07: [place] MG ORAL TAB [address] [place] [address] CALCIUM 600 2016-10 Yes None Univer s MG ORAL CAP 0-04 Entered ity o f 15:07: [address] VITAMIN D-3 2016-10 Yes 2000IU a Un maria alejandra ORAL 0-04 day ity of 15:07: [address] ZYRTEC 10 2016-10 Yes 1 a day Unive rs MG ORAL TAB 0-04 ity of 15:07: [address] MUCINEX 2016-10 Yes prn Univers ORAL 0-04 ity of 15:07: [address] VESICARE 10 2016-10 Yes once daily Univers MG ORAL TAB 0-04 ity of 15:07: [address] rosuvastati 2016-10 Yes 10mg Take 10 mg Univers n (CRESTOR) 0-04 by mouth ity of 10 mg 15:07: daily. [place] tablet [address] [place] [address] celecoxib 2016-10 Yes 200mg Take 200 Uni vers (CELEBREX) 0-04 mg by ity of 200 mg 15:07: mouth [place] capsule 54 daily. [facility] Dexlansopra 2016-10 Yes Take by Uni vers zole 0-04 mouth ity of (DEXILANT) 10:10: after [place] 60 mg 08 meals and Medical capsule at Branch bedtime. Dexlansopra 2016-10 Yes Take by Uni vers zole 0-04 mouth ity of (DEXILANT) 10:10: after [place] 60 mg 08 meals and Medical capsule at Branch bedtime. Dexlansopra 2016-10 Yes Take by Uni vers zole 0-04 mouth ity of (DEXILANT) 10:10: after [place] 60 mg 08 meals and Medical capsule at Branch bedtime. Dexlansopra 2016-10 Yes Take by Uni vers zole 0-04 mouth ity of (DEXILANT) 10:10: after [place] 60 mg 08 meals and Medical capsule at Branch bedtime. celecoxib 2016-10 Yes 200mg Take 200 Uni vers (CELEBREX) 0-04 mg by ity of 200 mg 10:07: mouth [place] capsule 54 daily. [facility] NEXIUM 40 2016-10 Yes 1 a day Unive rs MG ORAL 0-04 ity of CPDR 10:07: [address] LEXAPRO 20 2016-10 Yes 1 a day Univ ers MG ORAL TAB 0-04 ity of 10:07: [address] HYDROCODONE 2016-10 Yes None Univer s -ACETAMINOP 0-04 Entered ity o f HEN 7.5-750 10:07: [place] MG ORAL TAB [address] [place] [address] CALCIUM 600 2016-10 Yes None Univer s MG ORAL CAP 0-04 Entered ity o f 10:07: [address] VITAMIN D-3 2016-10 Yes 2000IU a Un maria alejandra ORAL 0-04 day ity of 10:07: [address] ZYRTEC 10 2016-10 Yes 1 a day Unive rs MG ORAL TAB 0-04 ity of 10:07: [address] MUCINEX 2016-10 Yes prn Univers ORAL 0-04 ity of 10:07: [address] VESICARE 10 2016-10 Yes once daily Univers MG ORAL TAB 0-04 ity of 10:07: [address] rosuvastati 2016-10 Yes 10mg Take 10 mg Univers n (CRESTOR) 0-04 by mouth ity of 10 mg 10:07: daily. [address] celecoxib 2016-10 Yes 200mg Take 200 Uni vers (CELEBREX) 0-04 mg by ity of 200 mg 10:07: mouth [place] capsule 54 daily. [facility] NEXIUM 40 2016-10 Yes 1 a day Unive rs MG ORAL 0-04 ity of CPDR 10:07: [address] LEXAPRO 20 2016-10 Yes 1 a day Univ ers MG ORAL TAB 0-04 ity of 10:07: [address] HYDROCODONE 2016-10 Yes None Univer s -ACETAMINOP 0-04 Entered ity o f HEN 7.5-750 10:07: [place] MG ORAL TAB [address] [place] [address] CALCIUM 600 2016-10 Yes None Univer s MG ORAL CAP 0-04 Entered ity o f 10:07: [address] VITAMIN D-3 2016-10 Yes 2000IU a Un maria alejandra ORAL 0-04 day ity of 10:07: [address] ZYRTEC 10 2016-10 Yes 1 a day Unive rs MG ORAL TAB 0-04 ity of 10:07: [address] MUCINEX 2016-10 Yes prn Univers ORAL 0-04 ity of 10:07: [address] VESICARE 10 2016-10 Yes once daily Univers MG ORAL TAB 0-04 ity of 10:07: [address] rosuvastati 2016-10 Yes 10mg Take 10 mg Univers n (CRESTOR) 0-04 by mouth ity of 10 mg 10:07: daily. [address] celecoxib 2016-10 Yes 200mg Take 200 Uni vers (CELEBREX) 0-04 mg by ity of 200 mg 10:07: mouth [place] capsule 54 daily. Medical Branch NEXIUM 40 2016-10 Yes 1 a day Unive rs MG ORAL 0-04 ity of CPDR 10:07: [address] LEXAPRO 20 2016-10 Yes 1 a day Univ ers MG ORAL TAB 0-04 ity of 10:07: [address] HYDROCODONE 2016-10 Yes None Univer s -ACETAMINOP 0-04 Entered ity o f HEN 7.5-750 10:07: [place] MG ORAL TAB [address] [place] [address] CALCIUM 600 2016-10 Yes None Univer s MG ORAL CAP 0-04 Entered ity o f 10:07: [address] VITAMIN D-3 2016-10 Yes 2000IU a Un maria alejandra ORAL 0-04 day ity of 10:07: [address] ZYRTEC 10 2016-10 Yes 1 a day Unive rs MG ORAL TAB 0-04 ity of 10:07: [address] MUCINEX 2016-10 Yes prn Univers ORAL 0-04 ity of 10:07: [address] VESICARE 10 2016-10 Yes once daily Univers MG ORAL TAB 0-04 ity of 10:07: [address] rosuvastati 2016-10 Yes 10mg Take 10 mg Univers n (CRESTOR) 0-04 by mouth ity of 10 mg 10:07: daily. [place] tablet [facility] [place] celecoxib 2016-10 Yes 200mg Take 200 Uni vers (CELEBREX) 0-04 mg by ity of 200 mg 10:07: mouth [place] capsule 54 daily. Medical Branch NEXIUM 40 2016-10 Yes 1 a day Unive rs MG ORAL 0-04 ity of CPDR 10:07: [address] LEXAPRO 20 2016-10 Yes 1 a day Univ ers MG ORAL TAB 0-04 ity of 10:07: [address] HYDROCODONE 2016-10 Yes None Univer s -ACETAMINOP 0-04 Entered ity o f HEN 7.5-750 10:07: [place] MG ORAL TAB [address] [place] [address] CALCIUM 600 2016-10 Yes None Univer s MG ORAL CAP 0-04 Entered ity o f 10:07: [address] VITAMIN D-3 2016-10 Yes 2000IU a Un maria alejandra ORAL 0-04 day ity of 10:07: [address] ZYRTEC 10 2016-10 Yes 1 a day Unive rs MG ORAL TAB 0-04 ity of 10:07: [address] MUCINEX 2016-10 Yes prn Univers ORAL 0-04 ity of 10:07: [address] VESICARE 10 2016-10 Yes once daily Univers MG ORAL TAB 0-04 ity of 10:07: [address] rosuvastati 2016-10 Yes 10mg Take 10 mg Univers n (CRESTOR) 0-04 by mouth ity of 10 mg 10:07: daily. [place] tablet Medical Branch lisinopril- 2016-10 Yes 1{tbl} Take [...] daily. Medical per tablet Branch levothyroxi Yes [id number] 50ug Take 1 Tab Univers ne 1-25 by mouth ity of (SYNTHROID) 00:00: [place]. [place] mcg 00 Administer Medical tablet on empty Branch stomach. levothyroxi Yes [id number] 50ug Take 1 Tab Univers ne 1-25 by mouth ity of (SYNTHROID) 00:00: [place]. [place] 50 mcg 00 Administer Medical tablet on empty Branch stomach. levothyroxi Yes [id number] 50ug Take 1 Tab Univers ne 1-25 by mouth ity of (SYNTHROID) 00:00: [place]. [place] 50 mcg 00 Administer Medical tablet on empty Branch stomach. levothyroxi Yes [id number] 50ug Take 1 Tab Univers ne 1-25 by mouth ity of (SYNTHROID) 00:00: [place]. [place] 50 mcg 00 Administer Medical tablet on empty Branch stomach. levothyroxi Yes [id number] 50ug Take 1 Tab Univers ne 1-25 by mouth ity of (SYNTHROID) 00:00: daily. [place] 50 mcg 00 Administer Medical tablet on empty Branch stomach. levothyroxi Yes [id number] 50ug Take 1 Tab Univers ne 1-25 by mouth ity of (SYNTHROID) 00:00: daily. [place] 50 mcg 00 Administer Medical tablet on empty Branch stomach. TOPROL XL 2009-0 Yes [id number] 1 by mouth Univers 50 MG ORAL 4-21 every day ity of TB24 00:00: [address] TOPROL XL 2009-0 Yes [id number] 1 by mouth Univers 50 MG ORAL 4-21 every day ity of TB24 00:00: [address] TOPROL XL 2009-0 Yes [id number] 1 by mouth Univers 50 MG ORAL 4-21 every day ity of TB24 00:00: [address] TOPROL XL 2009-0 Yes [id number] 1 by mouth Univers 50 MG ORAL 4-21 every day ity of TB24 00:00: [address] TOPROL XL 2009-0 Yes [id number] 1 by mouth Univers 50 MG ORAL 4-21 every day ity of TB24 00:00: [address] TOPROL XL 2008-0 Yes [id number] 1 by mouth Univers 50 MG ORAL 4-21 every day ity of TB24 00:00: [address] Myrbetriq Myrbetriq No 1{table QD Myrbetriq 50 MG 50 MG t} 50 MG Mupirocin 2 Mupirocin 2 No 1{appli TID Mupirocin % % cation} 2 % Dexilant 60 Dexilant 60 No 1{capsu QD Dexilant MG MG le} 60 MG tiZANidine tiZANidine No 1{table QD tiZANidine HCl 4 MG HCl 4 MG t_as_ne HCl 4 MG eded} Metoprolol Metoprolol No 1{table QD Metoprolol Succinate Succinate t} Succinate ER 50 MG ER 50 MG ER 50 MG methIMAzole methIMAzole No 1{table QD methIMAzol 10 MG 10 MG t} e 10 MG Metoprolol Metoprolol No 1{table QD Metoprolol Succinate Succinate t} Succinate ER 50 MG ER 50 MG ER 50 MG Fluticasone Fluticasone No Fluticason Propionate Propionate e 50 MCG/ACT 50 MCG/ACT Propionate 50 MCG/ACT Dicyclomine Dicyclomine No 1{table BID Dicyclomin HCl 20 MG HCl 20 MG t} e HCl 20 MG Benzonatate Benzonatate No Benzonatat 200 MG 200 MG e 200 MG Simvastatin Simvastatin No 1{table QD Simvastati 20 MG 20 MG t_in_th n 20 MG e_eveni ng} Symbicort Symbicort No 2{puffs BID Symbicort 160-4.5 160-4.5 } 160-4.5 MCG/ACT MCG/ACT MCG/ACT Montelukast Montelukast No Montelukas Sodium 10 Sodium 10 t Sodium MG MG 10 MG Celecoxib Celecoxib No 1{capsu QD Celecoxib 200 MG 200 MG le_with 200 MG _food} Gabapentin Gabapentin No 1{capsu QD Gabapentin 100 MG 100 MG le} 100 MG Lisinopril Lisinopril No 1{table QD Lisinopril 10 MG 10 MG t} 10 MG Furosemide Furosemide No 1{table QD Furosemide 20 MG 20 MG t} 20 MG Simvastatin Simvastatin No 1{table QD Simvastati 20 MG 20 MG t_in_th n 20 MG e_eveni ng} Lisinopril Lisinopril No 1{table QD Lisinopril 10 MG 10 MG t} 10 MG Lexapro 20 Lexapro 20 No 1{table QD Lexapro 20 MG MG t} MG Dexilant 60 Dexilant 60 No 1{capsu QD Dexilant MG MG le} 60 MG Lunesta 2 Lunesta 2 No 1{table QD Lunesta 2 MG MG t_immed MG iately_ before_ bedtime } Montelukast Montelukast No Montelukas Sodium 10 Sodium 10 t Sodium MG MG 10 MG Myrbetriq Myrbetriq No 1{table QD Myrbetriq 50 MG 50 MG t} 50 MG Dexilant 60 Dexilant 60 No 1{capsu QD Dexilant MG MG le} 60 MG [place] No 1{table QID [place] 7.5-325 MG 7.5-325 MG t_as_ne 7.5-325 MG eded} Mupirocin 2 Mupirocin 2 No 1{appli TID Mupirocin % % cation} 2 % Lunesta 2 Lunesta 2 No 1{table QD Lunesta 2 MG MG t_immed MG iately_ before_ bedtime } Albuterol Albuterol No Albuterol Sulfate HFA Sulfate HFA Sulfate 108 (90 108 (90 HFA 108 Base) Base) (90 Base) MCG/ACT MCG/ACT MCG/ACT HYDROcodone HYDROcodone No 1{table TID HYDROcodon -Acetaminop -Acetaminop t_as_ne e-Acetamin hen 7.5-325 hen 7.5-325 eded} ophen MG MG 7.5-325 MG Lexapro 20 Lexapro 20 No 1{table QD Lexapro 20 MG MG t} MG Fluticasone Fluticasone No Fluticason Propionate Propionate e 50 MCG/ACT 50 MCG/ACT Propionate 50 MCG/ACT Symbicort Symbicort No 2{puffs BID Symbicort 160-4.5 160-4.5 } 160-4.5 MCG/ACT MCG/ACT MCG/ACT Lisinopril Lisinopril No 1{table QD Lisinopril 10 MG 10 MG t} 10 MG methIMAzole methIMAzole No 1.5{tab QD methIMAzol 10 MG 10 MG let} e 10 MG Premarin Premarin No Premarin 0.625 MG/GM 0.625 MG/GM 0.625 MG/GM Celecoxib Celecoxib No 1{capsu QD Celecoxib 200 MG 200 MG le_with 200 MG _food} Dexilant 60 Dexilant 60 No 1{capsu QD Dexilant MG MG le} 60 MG Xyzal Xyzal No 1{table QD Xyzal Allergy Allergy t_in_th Allergy 24HR 5 MG 24HR 5 MG e_eveni 24HR 5 MG ng} Furosemide Furosemide No 1{table QD Furosemide 20 MG 20 MG t} 20 MG Gabapentin Gabapentin No 1{capsu QD Gabapentin 100 MG 100 MG le} 100 MG Fluticasone Fluticasone No 1{spray BID Fluticason Propionate Propionate _in_eac e 50 MCG/ACT 50 MCG/ACT h_nostr Propionate il} 50 MCG/ACT methIMAzole methIMAzole No 1{table QD methIMAzol 5 MG 5 MG t} e 5 MG Lexapro 20 Lexapro 20 No 1{table QD Lexapro 20 MG MG t} MG Metoprolol Metoprolol No 1{table QD Metoprolol Succinate Succinate t} Succinate ER 50 MG ER 50 MG ER 50 MG Furosemide Furosemide No 1{table QD Furosemide 20 MG 20 MG t} 20 MG tiZANidine tiZANidine No 1{table QD tiZANidine HCl 4 MG HCl 4 MG t_as_ne HCl 4 MG eded} Toviaz 4 MG Toviaz 4 MG No 1{table QD Toviaz 4 t} MG ProAir HFA ProAir HFA No 2{puffs ProAir HFA 108 (90 108 (90 _as_nee 108 (90 Base) Base) ded} Base) MCG/ACT MCG/ACT MCG/ACT Benzonatate Benzonatate No Benzonatat 200 MG 200 MG e 200 MG Montelukast Montelukast No 1{table QD Montelukas Sodium 10 Sodium 10 t} t Sodium MG MG 10 MG Dicyclomine Dicyclomine No 1{table BID Dicyclomin HCl 20 MG HCl 20 MG t} e HCl 20 MG Simvastatin Simvastatin No 1{table QD Simvastati 20 MG 20 MG t_in_th n 20 MG e_eveni ng} Metoprolol Metoprolol No 1{table QD Metoprolol Succinate Succinate t} Succinate ER 50 MG ER 50 MG ER 50 MG Simvastatin Simvastatin No 1{table QD Simvastati 20 MG 20 MG t_in_th n 20 MG e_eveni ng} Lisinopril Lisinopril No 1{table QD Lisinopril 10 MG 10 MG t} 10 MG Montelukast Montelukast No Montelukas Sodium 10 Sodium 10 t Sodium MG MG 10 MG Myrbetriq Myrbetriq No 1{table QD Myrbetriq 50 MG 50 MG t} 50 MG Dexilant 60 Dexilant 60 No 1{capsu QD Dexilant MG MG le} 60 MG [place] No 1{table QID [place] 7.5-325 MG 7.5-325 MG t_as_ne 7.5-325 MG eded} Mupirocin 2 Mupirocin 2 No 1{appli TID Mupirocin % % cation} 2 % Lunesta 2 Lunesta 2 No 1{table QD Lunesta 2 MG MG t_immed MG iately_ before_ bedtime } Albuterol Albuterol No Albuterol Sulfate HFA Sulfate HFA Sulfate 108 (90 108 (90 HFA 108 Base) Base) (90 Base) MCG/ACT MCG/ACT MCG/ACT HYDROcodone HYDROcodone No 1{table TID HYDROcodon -Acetaminop -Acetaminop t_as_ne e-Acetamin hen 7.5-325 hen 7.5-325 eded} ophen MG MG 7.5-325 MG Lexapro 20 Lexapro 20 No 1{table QD Lexapro 20 MG MG t} MG Fluticasone Fluticasone No Fluticason Propionate Propionate e 50 MCG/ACT 50 MCG/ACT Propionate 50 MCG/ACT Symbicort Symbicort No 2{puffs BID Symbicort 160-4.5 160-4.5 } 160-4.5 MCG/ACT MCG/ACT MCG/ACT Lisinopril Lisinopril No 1{table QD Lisinopril 10 MG 10 MG t} 10 MG methIMAzole methIMAzole No 1.5{tab QD methIMAzol 10 MG 10 MG let} e 10 MG Premarin Premarin No Premarin 0.625 MG/GM 0.625 MG/GM 0.625 MG/GM Celecoxib Celecoxib No 1{capsu QD Celecoxib 200 MG 200 MG le_with 200 MG _food} Dexilant 60 Dexilant 60 No 1{capsu QD Dexilant MG MG le} 60 MG Xyzal Xyzal No 1{table QD Xyzal Allergy Allergy t_in_th Allergy 24HR 5 MG 24HR 5 MG e_eveni 24HR 5 MG ng} Furosemide Furosemide No 1{table QD Furosemide 20 MG 20 MG t} 20 MG Gabapentin Gabapentin No 1{capsu QD Gabapentin 100 MG 100 MG le} 100 MG Fluticasone Fluticasone No 1{spray BID Fluticason Propionate Propionate _in_eac e 50 MCG/ACT 50 MCG/ACT h_nostr Propionate il} 50 MCG/ACT methIMAzole methIMAzole No 1{table QD methIMAzol 5 MG 5 MG t} e 5 MG Lexapro 20 Lexapro 20 No 1{table QD Lexapro 20 MG MG t} MG Metoprolol Metoprolol No 1{table QD Metoprolol Succinate Succinate t} Succinate ER 50 MG ER 50 MG ER 50 MG Furosemide Furosemide No 1{table QD Furosemide 20 MG 20 MG t} 20 MG tiZANidine tiZANidine No 1{table QD tiZANidine HCl 4 MG HCl 4 MG t_as_ne HCl 4 MG eded} Toviaz 4 MG Toviaz 4 MG No 1{table QD Toviaz 4 t} MG ProAir HFA ProAir HFA No 2{puffs ProAir HFA 108 (90 108 (90 _as_nee 108 (90 Base) Base) ded} Base) MCG/ACT MCG/ACT MCG/ACT Benzonatate Benzonatate No Benzonatat 200 MG 200 MG e 200 MG Montelukast Montelukast No 1{table QD Montelukas Sodium 10 Sodium 10 t} t Sodium MG MG 10 MG Dicyclomine Dicyclomine No 1{table BID Dicyclomin HCl 20 MG HCl 20 MG t} e HCl 20 MG Simvastatin Simvastatin No 1{table QD Simvastati 20 MG 20 MG t_in_th n 20 MG e_eveni ng} Metoprolol Metoprolol No 1{table QD Metoprolol Succinate Succinate t} Succinate ER 50 MG ER 50 MG ER 50 MG Simvastatin Simvastatin No 1{table QD Simvastati 20 MG 20 MG t_in_th n 20 MG e_eveni ng} Lisinopril Lisinopril No 1{table QD Lisinopril 10 MG 10 MG t} 10 MG Montelukast Montelukast No Montelukas Sodium 10 Sodium 10 t Sodium MG MG 10 MG Myrbetriq Myrbetriq No 1{table QD Myrbetriq 50 MG 50 MG t} 50 MG Dexilant 60 Dexilant 60 No 1{capsu QD Dexilant MG MG le} 60 MG [place] No 1{table QID [place] 7.5-325 MG 7.5-325 MG t_as_ne 7.5-325 MG eded} Mupirocin 2 Mupirocin 2 No 1{appli TID Mupirocin % % cation} 2 % Lunesta 2 Lunesta 2 No 1{table QD Lunesta 2 MG MG t_immed MG iately_ before_ bedtime } Albuterol Albuterol No Albuterol Sulfate HFA Sulfate HFA Sulfate 108 (90 108 (90 HFA 108 Base) Base) (90 Base) MCG/ACT MCG/ACT MCG/ACT HYDROcodone HYDROcodone No 1{table TID HYDROcodon -Acetaminop -Acetaminop t_as_ne e-Acetamin hen 7.5-325 hen 7.5-325 eded} ophen MG MG 7.5-325 MG Lexapro 20 Lexapro 20 No 1{table QD Lexapro 20 MG MG t} MG Fluticasone Fluticasone No Fluticason Propionate Propionate e 50 MCG/ACT 50 MCG/ACT Propionate 50 MCG/ACT Symbicort Symbicort No 2{puffs BID Symbicort 160-4.5 160-4.5 } 160-4.5 MCG/ACT MCG/ACT MCG/ACT Lisinopril Lisinopril No 1{table QD Lisinopril 10 MG 10 MG t} 10 MG methIMAzole methIMAzole No 1.5{tab QD methIMAzol 10 MG 10 MG let} e 10 MG Premarin Premarin No Premarin 0.625 MG/GM 0.625 MG/GM 0.625 MG/GM Celecoxib Celecoxib No 1{capsu QD Celecoxib 200 MG 200 MG le_with 200 MG _food} Dexilant 60 Dexilant 60 No 1{capsu QD Dexilant MG MG le} 60 MG Xyzal Xyzal No 1{table QD Xyzal Allergy Allergy t_in_th Allergy 24HR 5 MG 24HR 5 MG e_eveni 24HR 5 MG ng} Furosemide Furosemide No 1{table QD Furosemide 20 MG 20 MG t} 20 MG Gabapentin Gabapentin No 1{capsu QD Gabapentin 100 MG 100 MG le} 100 MG Fluticasone Fluticasone No 1{spray BID Fluticason Propionate Propionate _in_eac e 50 MCG/ACT 50 MCG/ACT h_nostr Propionate il} 50 MCG/ACT methIMAzole methIMAzole No 1{table QD methIMAzol 5 MG 5 MG t} e 5 MG Lexapro 20 Lexapro 20 No 1{table QD Lexapro 20 MG MG t} MG Metoprolol Metoprolol No 1{table QD Metoprolol Succinate Succinate t} Succinate ER 50 MG ER 50 MG ER 50 MG Furosemide Furosemide No 1{table QD Furosemide 20 MG 20 MG t} 20 MG tiZANidine tiZANidine No 1{table QD tiZANidine HCl 4 MG HCl 4 MG t_as_ne HCl 4 MG eded} Toviaz 4 MG Toviaz 4 MG No 1{table QD Toviaz 4 t} MG ProAir HFA ProAir HFA No 2{puffs ProAir HFA 108 (90 108 (90 _as_nee 108 (90 Base) Base) ded} Base) MCG/ACT MCG/ACT MCG/ACT Benzonatate Benzonatate No Benzonatat 200 MG 200 MG e 200 MG Montelukast Montelukast No 1{table QD Montelukas Sodium 10 Sodium 10 t} t Sodium MG MG 10 MG Dicyclomine Dicyclomine No 1{table BID Dicyclomin HCl 20 MG HCl 20 MG t} e HCl 20 MG Simvastatin Simvastatin No 1{table QD Simvastati 20 MG 20 MG t_in_th n 20 MG e_eveni ng} Metoprolol Metoprolol No 1{table QD Metoprolol Succinate Succinate t} Succinate ER 50 MG ER 50 MG ER 50 MG Simvastatin Simvastatin No 1{table QD Simvastati 20 MG 20 MG t_in_th n 20 MG e_eveni ng} Lisinopril Lisinopril No 1{table QD Lisinopril 10 MG 10 MG t} 10 MG Lunesta 2 Lunesta 2 No 1{table QD Lunesta 2 MG MG t_immed MG iately_ before_ bedtime } Lexapro 20 Lexapro 20 No 1{table QD Lexapro 20 MG MG t} MG Dicyclomine Dicyclomine No 1{table BID Dicyclomin HCl 20 MG HCl 20 MG t} e HCl 20 MG Escitalopra Escitalopra No Escitalopr m Oxalate m Oxalate am Oxalate 20 MG 20 MG 20 MG Montelukast Montelukast No 1{table QD Montelukas Sodium 10 Sodium 10 t} t Sodium MG MG 10 MG Symbicort Symbicort No 2{puffs BID Symbicort 160-4.5 160-4.5 } 160-4.5 MCG/ACT MCG/ACT MCG/ACT Myrbetriq Myrbetriq No 1{table QD Myrbetriq 50 MG 50 MG t} 50 MG methIMAzole methIMAzole No 1.5{tab QD methIMAzol 10 MG 10 MG let} e 10 MG Mupirocin 2 Mupirocin 2 No 1{appli TID Mupirocin % % cation} 2 % Dexilant 60 Dexilant 60 No 1{capsu QD Dexilant MG MG le} 60 MG Albuterol Albuterol No Albuterol Sulfate HFA Sulfate HFA Sulfate 108 (90 108 (90 HFA 108 Base) Base) (90 Base) MCG/ACT MCG/ACT MCG/ACT methIMAzole methIMAzole No 1{table QD methIMAzol 5 MG 5 MG t} e 5 MG Toviaz 4 MG Toviaz 4 MG No 1{table QD Toviaz 4 t} MG tiZANidine tiZANidine No 1{table QD tiZANidine HCl 4 MG HCl 4 MG t_as_ne HCl 4 MG eded} Premarin Premarin No Premarin 0.625 MG/GM 0.625 MG/GM 0.625 MG/GM Montelukast Montelukast No Montelukas Sodium 10 Sodium 10 t Sodium MG MG 10 MG Simvastatin Simvastatin No Simvastati 20 MG 20 MG n 20 MG Furosemide Furosemide No 1{table QD Furosemide 20 MG 20 MG t} 20 MG Fluticasone Fluticasone No 1{spray BID Fluticason Propionate Propionate _in_eac e 50 MCG/ACT 50 MCG/ACT h_nostr Propionate il} 50 MCG/ACT Dexilant 60 Dexilant 60 No 1{capsu QD Dexilant MG MG le} 60 MG HYDROcodone HYDROcodone No 1{table TID HYDROcodon -Acetaminop -Acetaminop t_as_ne e-Acetamin hen 7.5-325 hen 7.5-325 eded} ophen MG MG 7.5-325 MG Xyzal Xyzal No 1{table QD Xyzal Allergy Allergy t_in_th Allergy 24HR 5 MG 24HR 5 MG e_eveni 24HR 5 MG ng} Metoprolol Metoprolol No Metoprolol Succinate Succinate Succinate ER 50 MG ER 50 MG ER 50 MG Celecoxib Celecoxib No 1{capsu QD Celecoxib 200 MG 200 MG le_with 200 MG _food} ProAir HFA ProAir HFA No 2{puffs ProAir HFA 108 (90 108 (90 _as_nee 108 (90 Base) Base) ded} Base) MCG/ACT MCG/ACT MCG/ACT Fluticasone Fluticasone No Fluticason Propionate Propionate e 50 MCG/ACT 50 MCG/ACT Propionate 50 MCG/ACT Gabapentin Gabapentin No 1{capsu QD Gabapentin 100 MG 100 MG le} 100 MG Lisinopril Lisinopril No 1{table QD Lisinopril 10 MG 10 MG t} 10 MG Furosemide Furosemide No Furosemide 20 MG 20 MG 20 MG [place] No 1{table QID [place] 7.5-325 MG 7.5-325 MG t_as_ne 7.5-325 MG eded} Lisinopril Lisinopril No 1{table QD Lisinopril 10 MG 10 MG t} 10 MG Benzonatate Benzonatate No Benzonatat 200 MG 200 MG e 200 MG Simvastatin Simvastatin No 1{table QD Simvastati 20 MG 20 MG t_in_th n 20 MG e_eveni ng} Metoprolol Metoprolol No 1{table QD Metoprolol Succinate Succinate t} Succinate ER 50 MG ER 50 MG ER 50 MG Escitalopra Escitalopra No Escitalopr m Oxalate m Oxalate am Oxalate 20 MG 20 MG 20 MG Lexapro 20 Lexapro 20 No 1{table QD Lexapro 20 MG MG t} MG methIMAzole methIMAzole No 1{table QD methIMAzol 5 MG 5 MG t} e 5 MG Lisinopril Lisinopril No 1{table QD Lisinopril 10 MG 10 MG t} 10 MG ProAir HFA ProAir HFA No 2{puffs ProAir HFA 108 (90 108 (90 _as_nee 108 (90 Base) Base) ded} Base) MCG/ACT MCG/ACT MCG/ACT Dicyclomine Dicyclomine No 1{table BID Dicyclomin HCl 20 MG HCl 20 MG t} e HCl 20 MG Dexilant 60 Dexilant 60 No 1{capsu QD Dexilant MG MG le} 60 MG methIMAzole methIMAzole No 1.5{tab QD methIMAzol 10 MG 10 MG let} e 10 MG Lunesta 2 Lunesta 2 No 1{table QD Lunesta 2 MG MG t_immed MG iately_ before_ bedtime } Albuterol Albuterol No Albuterol Sulfate HFA Sulfate HFA Sulfate 108 (90 108 (90 HFA 108 Base) Base) (90 Base) MCG/ACT MCG/ACT MCG/ACT Mupirocin 2 Mupirocin 2 No 1{appli TID Mupirocin % % cation} 2 % Toviaz 4 MG Toviaz 4 MG No 1{table QD Toviaz 4 t} MG Premarin Premarin No Premarin 0.625 MG/GM 0.625 MG/GM 0.625 MG/GM Fluticasone Fluticasone No Fluticason Propionate Propionate e 50 MCG/ACT 50 MCG/ACT Propionate 50 MCG/ACT Simvastatin Simvastatin No Simvastati 20 MG 20 MG n 20 MG Furosemide Furosemide No 1{table QD Furosemide 20 MG 20 MG t} 20 MG Fluticasone Fluticasone No 1{spray BID Fluticason Propionate Propionate _in_eac e 50 MCG/ACT 50 MCG/ACT h_nostr Propionate il} 50 MCG/ACT Dexilant 60 Dexilant 60 No 1{capsu QD Dexilant MG MG le} 60 MG Celecoxib Celecoxib No 1{capsu QD Celecoxib 200 MG 200 MG le_with 200 MG _food} Xyzal Xyzal No 1{table QD Xyzal Allergy Allergy t_in_th Allergy 24HR 5 MG 24HR 5 MG e_eveni 24HR 5 MG ng} Metoprolol Metoprolol No Metoprolol Succinate Succinate Succinate ER 50 MG ER 50 MG ER 50 MG tiZANidine tiZANidine No 1{table QD tiZANidine HCl 4 MG HCl 4 MG t_as_ne HCl 4 MG eded} HYDROcodone HYDROcodone No 1{table TID HYDROcodon -Acetaminop -Acetaminop t_as_ne e-Acetamin hen 7.5-325 hen 7.5-325 eded} ophen MG MG 7.5-325 MG Symbicort Symbicort No 2{puffs BID Symbicort 160-4.5 160-4.5 } 160-4.5 MCG/ACT MCG/ACT MCG/ACT Gabapentin Gabapentin No 1{capsu QD Gabapentin 100 MG 100 MG le} 100 MG Montelukast Montelukast No Montelukas Sodium 10 Sodium 10 t Sodium MG MG 10 MG Furosemide Furosemide No Furosemide 20 MG 20 MG 20 MG [place] No 1{table QID [place] 7.5-325 MG 7.5-325 MG t_as_ne 7.5-325 MG eded} Lisinopril Lisinopril No 1{table QD Lisinopril 10 MG 10 MG t} 10 MG Benzonatate Benzonatate No Benzonatat 200 MG 200 MG e 200 MG Simvastatin Simvastatin No 1{table QD Simvastati 20 MG 20 MG t_in_th n 20 MG e_eveni ng} Metoprolol Metoprolol No 1{table QD Metoprolol Succinate Succinate t} Succinate ER 50 MG ER 50 MG ER 50 MG tiZANidine tiZANidine No 1{table QD tiZANidine HCl 4 MG HCl 4 MG t_as_ne HCl 4 MG eded} Premarin Premarin No Premarin 0.625 MG/GM 0.625 MG/GM 0.625 MG/GM Dexilant 60 Dexilant 60 No 1{capsu QD Dexilant MG MG le} 60 MG methIMAzole methIMAzole No 1.5{tab QD methIMAzol 10 MG 10 MG let} e 10 MG HYDROcodone HYDROcodone No 1{table TID HYDROcodon -Acetaminop -Acetaminop t_as_ne e-Acetamin hen 7.5-325 hen 7.5-325 eded} ophen MG MG 7.5-325 MG Symbicort Symbicort No 2{puffs BID Symbicort 160-4.5 160-4.5 } 160-4.5 MCG/ACT MCG/ACT MCG/ACT Celecoxib Celecoxib No 1{capsu QD Celecoxib 200 MG 200 MG le_with 200 MG _food} Toviaz 4 MG Toviaz 4 MG No 1{table QD Toviaz 4 t} MG methIMAzole methIMAzole No 1{table QD methIMAzol 5 MG 5 MG t} e 5 MG ProAir HFA ProAir HFA No 2{puffs ProAir HFA 108 (90 108 (90 _as_nee 108 (90 Base) Base) ded} Base) MCG/ACT MCG/ACT MCG/ACT Dicyclomine Dicyclomine No 1{table BID Dicyclomin HCl 20 MG HCl 20 MG t} e HCl 20 MG Mupirocin 2 Mupirocin 2 No 1{appli TID Mupirocin % % cation} 2 % Fluticasone Fluticasone No Fluticason Propionate Propionate e 50 MCG/ACT 50 MCG/ACT Propionate 50 MCG/ACT Montelukast Montelukast No Montelukas Sodium 10 Sodium 10 t Sodium MG MG 10 MG Metoprolol Metoprolol No Metoprolol Succinate Succinate Succinate ER 50 MG ER 50 MG ER 50 MG Furosemide Furosemide No Furosemide 20 MG 20 MG 20 MG Simvastatin Simvastatin No Simvastati 20 MG 20 MG n 20 MG Xyzal Xyzal No 1{table QD Xyzal Allergy Allergy t_in_th Allergy 24HR 5 MG 24HR 5 MG e_eveni 24HR 5 MG ng} Lisinopril Lisinopril No 1{table QD Lisinopril 10 MG 10 MG t} 10 MG Lexapro 20 Lexapro 20 No 1{table QD Lexapro 20 MG MG t} MG Albuterol Albuterol No Albuterol Sulfate HFA Sulfate HFA Sulfate 108 (90 108 (90 HFA 108 Base) Base) (90 Base) MCG/ACT MCG/ACT MCG/ACT Lunesta 2 Lunesta 2 No 1{table QD Lunesta 2 MG MG t_immed MG iately_ before_ bedtime } Dexilant 60 Dexilant 60 No 1{capsu QD Dexilant MG MG le} 60 MG Gabapentin Gabapentin No 1{capsu QD Gabapentin 100 MG 100 MG le} 100 MG [place] No 1{table QID [place] 7.5-325 MG 7.5-325 MG t_as_ne 7.5-325 MG eded} Escitalopra Escitalopra No Escitalopr m Oxalate m Oxalate am Oxalate 20 MG 20 MG 20 MG Benzonatate Benzonatate No Benzonatat 200 MG 200 MG e 200 MG Lisinopril Lisinopril No 1{table QD Lisinopril 10 MG 10 MG t} 10 MG Premarin Premarin No Premarin 0.625 MG/GM 0.625 MG/GM 0.625 MG/GM Dexilant 60 Dexilant 60 No 1{capsu QD Dexilant MG MG le} 60 MG [place] No 1{table QID [place] 7.5-325 MG 7.5-325 MG t_as_ne 7.5-325 MG eded} Dicyclomine Dicyclomine No 1{table BID Dicyclomin HCl 20 MG HCl 20 MG t} e HCl 20 MG Furosemide Furosemide No Furosemide 20 MG 20 MG 20 MG Benzonatate Benzonatate No Benzonatat 200 MG 200 MG e 200 MG Metoprolol Metoprolol No 1{table QD Metoprolol Succinate Succinate t} Succinate ER 50 MG ER 50 MG ER 50 MG Celecoxib Celecoxib No 1{capsu QD Celecoxib 200 MG 200 MG le_with 200 MG _food} Gabapentin Gabapentin No 1{capsu QD Gabapentin 100 MG 100 MG le} 100 MG Mupirocin 2 Mupirocin 2 No 1{appli TID Mupirocin % % cation} 2 % Lunesta 2 Lunesta 2 No 1{table QD Lunesta 2 MG MG t_immed MG iately_ before_ bedtime } Lisinopril Lisinopril No 1{table QD Lisinopril 10 MG 10 MG t} 10 MG ProAir HFA ProAir HFA No 2{puffs ProAir HFA 108 (90 108 (90 _as_nee 108 (90 Base) Base) ded} Base) MCG/ACT MCG/ACT MCG/ACT Fluticasone Fluticasone No Fluticason Propionate Propionate e 50 MCG/ACT 50 MCG/ACT Propionate 50 MCG/ACT HYDROcodone HYDROcodone No 1{table TID HYDROcodon -Acetaminop -Acetaminop t_as_ne e-Acetamin hen 7.5-325 hen 7.5-325 eded} ophen MG MG 7.5-325 MG Albuterol Albuterol No Albuterol Sulfate HFA Sulfate HFA Sulfate 108 (90 108 (90 HFA 108 Base) Base) (90 Base) MCG/ACT MCG/ACT MCG/ACT Furosemide Furosemide No 1{table QD Furosemide 20 MG 20 MG t} 20 MG methIMAzole methIMAzole No 1{table QD methIMAzol 5 MG 5 MG t} e 5 MG Xyzal Xyzal No 1{table QD Xyzal Allergy Allergy t_in_th Allergy 24HR 5 MG 24HR 5 MG e_eveni 24HR 5 MG ng} Myrbetriq Myrbetriq No 1{table QD Myrbetriq 50 MG 50 MG t} 50 MG Montelukast Montelukast No 1{table QD Montelukas Sodium 10 Sodium 10 t} t Sodium MG MG 10 MG Montelukast Montelukast No Montelukas Sodium 10 Sodium 10 t Sodium MG MG 10 MG methIMAzole methIMAzole No 1.5{tab QD methIMAzol 10 MG 10 MG let} e 10 MG Fluticasone Fluticasone No 1{spray BID Fluticason Propionate Propionate _in_eac e 50 MCG/ACT 50 MCG/ACT h_nostr Propionate il} 50 MCG/ACT Simvastatin Simvastatin No 1{table QD Simvastati 20 MG 20 MG t_in_th n 20 MG e_eveni ng} Lisinopril Lisinopril No 1{table QD Lisinopril 10 MG 10 MG t} 10 MG methIMAzole methIMAzole No 1{table QD methIMAzol 5 MG 5 MG t} e 5 MG tiZANidine tiZANidine No 1{table QD tiZANidine HCl 4 MG HCl 4 MG t_as_ne HCl 4 MG eded} Dexilant 60 Dexilant 60 No 1{capsu QD Dexilant MG MG le} 60 MG Symbicort Symbicort No 2{puffs BID Symbicort 160-4.5 160-4.5 } 160-4.5 MCG/ACT MCG/ACT MCG/ACT Lexapro 20 Lexapro 20 No 1{table QD Lexapro 20 MG MG t} MG Dexilant 60 Dexilant 60 No 1{capsu QD Dexilant MG MG le} 60 MG Escitalopra Escitalopra No Escitalopr m Oxalate m Oxalate am Oxalate 20 MG 20 MG 20 MG Toviaz 4 MG Toviaz 4 MG No 1{table QD Toviaz 4 t} MG Metoprolol Metoprolol No Metoprolol Succinate Succinate Succinate ER 50 MG ER 50 MG ER 50 MG Simvastatin Simvastatin No Simvastati 20 MG 20 MG n 20 MG Lunesta 2 Lunesta 2 No 1{table QD Lunesta 2 MG MG t_immed MG iately_ before_ bedtime } [place] No 1{table QID [place] 7.5-325 MG 7.5-325 MG t_as_ne 7.5-325 MG eded} Premarin Premarin No Premarin 0.625 MG/GM 0.625 MG/GM 0.625 MG/GM Dicyclomine Dicyclomine No 1{table BID Dicyclomin HCl 20 MG HCl 20 MG t} e HCl 20 MG Xyzal Xyzal No 1{table QD Xyzal Allergy Allergy t_in_th Allergy 24HR 5 MG 24HR 5 MG e_eveni 24HR 5 MG ng} Montelukast Montelukast No Montelukas Sodium 10 Sodium 10 t Sodium MG MG 10 MG Symbicort Symbicort No 2{puffs BID Symbicort 160-4.5 160-4.5 } 160-4.5 MCG/ACT MCG/ACT MCG/ACT Albuterol Albuterol No Albuterol Sulfate HFA Sulfate HFA Sulfate 108 (90 108 (90 HFA 108 Base) Base) (90 Base) MCG/ACT MCG/ACT MCG/ACT Dexilant 60 Dexilant 60 No 1{capsu QD Dexilant MG MG le} 60 MG Furosemide Furosemide No 1{table QD Furosemide 20 MG 20 MG t} 20 MG Mupirocin 2 Mupirocin 2 No 1{appli TID Mupirocin % % cation} 2 % methIMAzole methIMAzole No 1.5{tab QD methIMAzol 10 MG 10 MG let} e 10 MG Fluticasone Fluticasone No Fluticason Propionate Propionate e 50 MCG/ACT 50 MCG/ACT Propionate 50 MCG/ACT Metoprolol Metoprolol No 1{table QD Metoprolol Succinate Succinate t} Succinate ER 50 MG ER 50 MG ER 50 MG tiZANidine tiZANidine No 1{table QD tiZANidine HCl 4 MG HCl 4 MG t_as_ne HCl 4 MG eded} Celecoxib Celecoxib No 1{capsu QD Celecoxib 200 MG 200 MG le_with 200 MG _food} Metoprolol Metoprolol No Metoprolol Succinate Succinate Succinate ER 50 MG ER 50 MG ER 50 MG Simvastatin Simvastatin No Simvastati 20 MG 20 MG n 20 MG Benzonatate Benzonatate No Benzonatat 200 MG 200 MG e 200 MG Furosemide Furosemide No Furosemide 20 MG 20 MG 20 MG Montelukast Montelukast No 1{table QD Montelukas Sodium 10 Sodium 10 t} t Sodium MG MG 10 MG Escitalopra Escitalopra No Escitalopr m Oxalate m Oxalate am Oxalate 20 MG 20 MG 20 MG methIMAzole methIMAzole No 1{table QD methIMAzol 5 MG 5 MG t} e 5 MG [place] No 1{table QID [place] 7.5-325 MG 7.5-325 MG t_as_ne 7.5-325 MG eded} Lunesta 2 Lunesta 2 No 1{table QD Lunesta 2 MG MG t_immed MG iately_ before_ bedtime } Simvastatin Simvastatin No 1{table QD Simvastati 20 MG 20 MG t_in_th n 20 MG e_eveni ng} Lexapro 20 Lexapro 20 No 1{table QD Lexapro 20 MG MG t} MG Lisinopril Lisinopril No 1{table QD Lisinopril 10 MG 10 MG t} 10 MG Gabapentin Gabapentin No 1{capsu QD Gabapentin 100 MG 100 MG le} 100 MG ProAir HFA ProAir HFA No 2{puffs ProAir HFA 108 (90 108 (90 _as_nee 108 (90 Base) Base) ded} Base) MCG/ACT MCG/ACT MCG/ACT Lisinopril Lisinopril No 1{table QD Lisinopril 10 MG 10 MG t} 10 MG Dexilant 60 Dexilant 60 No 1{capsu QD Dexilant MG MG le} 60 MG HYDROcodone HYDROcodone No 1{table TID HYDROcodon -Acetaminop -Acetaminop t_as_ne e-Acetamin hen 7.5-325 hen 7.5-325 eded} ophen MG MG 7.5-325 MG Toviaz 4 MG Toviaz 4 MG No 1{table QD Toviaz 4 t} MG Fluticasone Fluticasone No Fluticason Propionate Propionate e 50 MCG/ACT 50 MCG/ACT Propionate 50 MCG/ACT Myrbetriq Myrbetriq No 1{table QD Myrbetriq 50 MG 50 MG t} 50 MG Mupirocin 2 Mupirocin 2 No 1{appli TID Mupirocin % % cation} 2 % Symbicort Symbicort No 2{puffs BID Symbicort 160-4.5 160-4.5 } 160-4.5 MCG/ACT MCG/ACT MCG/ACT Lisinopril Lisinopril No 1{table QD Lisinopril 10 MG 10 MG t} 10 MG Dexilant 60 Dexilant 60 No 1{capsu QD Dexilant MG MG le} 60 MG Dicyclomine Dicyclomine No 1{table BID Dicyclomin HCl 20 MG HCl 20 MG t} e HCl 20 MG Myrbetriq Myrbetriq No 1{table QD Myrbetriq 50 MG 50 MG t} 50 MG tiZANidine tiZANidine No 1{table QD tiZANidine HCl 4 MG HCl 4 MG t_as_ne HCl 4 MG eded} Xyzal Xyzal No 1{table QD Xyzal Allergy Allergy t_in_th Allergy 24HR 5 MG 24HR 5 MG e_eveni 24HR 5 MG ng} Celecoxib Celecoxib No 1{capsu QD Celecoxib 200 MG 200 MG le_with 200 MG _food} Montelukast Montelukast No 1{table QD Montelukas Sodium 10 Sodium 10 t} t Sodium MG MG 10 MG ProAir HFA ProAir HFA No 2{puffs ProAir HFA 108 (90 108 (90 _as_nee 108 (90 Base) Base) ded} Base) MCG/ACT MCG/ACT MCG/ACT Lexapro 20 Lexapro 20 No 1{table QD Lexapro 20 MG MG t} MG Simvastatin Simvastatin No 1{table QD Simvastati 20 MG 20 MG t_in_th n 20 MG e_eveni ng} Furosemide Furosemide No 1{table QD Furosemide 20 MG 20 MG t} 20 MG Gabapentin Gabapentin No 1{capsu QD Gabapentin 100 MG 100 MG le} 100 MG Lisinopril Lisinopril No Lisinopril 10 MG 10 MG 10 MG Metoprolol Metoprolol No 1{table QD Metoprolol Succinate Succinate t} Succinate ER 50 MG ER 50 MG ER 50 MG Toviaz 4 MG Toviaz 4 MG No 1{table QD Toviaz 4 t} MG Fluticasone Fluticasone No Fluticason Propionate Propionate e 50 MCG/ACT 50 MCG/ACT Propionate 50 MCG/ACT Simvastatin Simvastatin No Simvastati 20 MG 20 MG n 20 MG HYDROcodone HYDROcodone No 1{table TID HYDROcodon -Acetaminop -Acetaminop t_as_ne e-Acetamin hen 7.5-325 hen 7.5-325 eded} ophen MG MG 7.5-325 MG methIMAzole methIMAzole No 1.5{tab QD methIMAzol 10 MG 10 MG let} e 10 MG Fluticasone Fluticasone No 1{spray BID Fluticason Propionate Propionate _in_eac e 50 MCG/ACT 50 MCG/ACT h_nostr Propionate il} 50 MCG/ACT Furosemide Furosemide No Furosemide 20 MG 20 MG 20 MG Symbicort Symbicort No 2{puffs BID Symbicort 160-4.5 160-4.5 } 160-4.5 MCG/ACT MCG/ACT MCG/ACT Furosemide Furosemide No 1{table QD Furosemide 20 MG 20 MG t} 20 MG methIMAzole methIMAzole No methIMAzol 10 MG 10 MG e 10 MG Lisinopril Lisinopril No 1{table QD Lisinopril 10 MG 10 MG t} 10 MG Metoprolol Metoprolol No Metoprolol Succinate Succinate Succinate ER 50 MG ER 50 MG ER 50 MG Escitalopra Escitalopra No Escitalopr m Oxalate m Oxalate am Oxalate 20 MG 20 MG 20 MG Montelukast Montelukast No Montelukas Sodium 10 Sodium 10 t Sodium MG MG 10 MG Metoprolol Metoprolol No 1{table QD Metoprolol Succinate Succinate t} Succinate ER 50 MG ER 50 MG ER 50 MG Lexapro 20 Lexapro 20 No 1{table QD Lexapro 20 MG MG t} MG Symbicort Symbicort No 2{puffs BID Symbicort 160-4.5 160-4.5 } 160-4.5 MCG/ACT MCG/ACT MCG/ACT Dexilant 60 Dexilant 60 No 1{capsu QD Dexilant MG MG le} 60 MG Dicyclomine Dicyclomine No 1{table BID Dicyclomin HCl 20 MG HCl 20 MG t} e HCl 20 MG Simvastatin Simvastatin No 1{table QD Simvastati 20 MG 20 MG t_in_th n 20 MG e_eveni ng} Myrbetriq Myrbetriq No 1{table QD Myrbetriq 50 MG 50 MG t} 50 MG tiZANidine tiZANidine No 1{table QD tiZANidine HCl 4 MG HCl 4 MG t_as_ne HCl 4 MG eded} Xyzal Xyzal No 1{table QD Xyzal Allergy Allergy t_in_th Allergy 24HR 5 MG 24HR 5 MG e_eveni 24HR 5 MG ng} Celecoxib Celecoxib No 1{capsu QD Celecoxib 200 MG 200 MG le_with 200 MG _food} Montelukast Montelukast No 1{table QD Montelukas Sodium 10 Sodium 10 t} t Sodium MG MG 10 MG ProAir HFA ProAir HFA No 2{puffs ProAir HFA 108 (90 108 (90 _as_nee 108 (90 Base) Base) ded} Base) MCG/ACT MCG/ACT MCG/ACT Lexapro 20 Lexapro 20 No 1{table QD Lexapro 20 MG MG t} MG Simvastatin Simvastatin No 1{table QD Simvastati 20 MG 20 MG t_in_th n 20 MG e_eveni ng} Gabapentin Gabapentin No 1{capsu QD Gabapentin 100 MG 100 MG le} 100 MG Lisinopril Lisinopril No Lisinopril 10 MG 10 MG 10 MG Gabapentin Gabapentin No 1{capsu QD Gabapentin 100 MG 100 MG le} 100 MG Metoprolol Metoprolol No 1{table QD Metoprolol Succinate Succinate t} Succinate ER 50 MG ER 50 MG ER 50 MG Toviaz 4 MG Toviaz 4 MG No 1{table QD Toviaz 4 t} MG Fluticasone Fluticasone No Fluticason Propionate Propionate e 50 MCG/ACT 50 MCG/ACT Propionate 50 MCG/ACT Simvastatin Simvastatin No Simvastati 20 MG 20 MG n 20 MG HYDROcodone HYDROcodone No 1{table TID HYDROcodon -Acetaminop -Acetaminop t_as_ne e-Acetamin hen 7.5-325 hen 7.5-325 eded} ophen MG MG 7.5-325 MG methIMAzole methIMAzole No 1.5{tab QD methIMAzol 10 MG 10 MG let} e 10 MG Fluticasone Fluticasone No 1{spray BID Fluticason Propionate Propionate _in_eac e 50 MCG/ACT 50 MCG/ACT h_nostr Propionate il} 50 MCG/ACT Furosemide Furosemide No Furosemide 20 MG 20 MG 20 MG Furosemide Furosemide No 1{table QD Furosemide 20 MG 20 MG t} 20 MG methIMAzole methIMAzole No methIMAzol 10 MG 10 MG e 10 MG Hydrocodone Hydrocodone Yes Luis Felipe 1 tablet Common -Acetaminop -Acetaminop Cates as needed [facility] Celecoxib Celecoxib Yes Luis Felipe 1 capsule Common Cates with food [facility] Lisinopril Lisinopril Yes Luis Felipe 1 tablet Common Cates [facility] Furosemide Furosemide Yes Luis Felipe 1 tablet Common Cates [facility] Fluticasone Fluticasone Yes Luis Felipe 1 spray in Common Propionate Propionate Cates each Sp iam nostril [facility] Metoprolol Metoprolol Yes Luis Felipe 1 tablet Common Succinate Succinate Cates Spir it ER ER - [facility] Tizanidine Tizanidine Yes Luis Felipe 1 tablet Common HCl HCl Cates as needed [facility] Simvastatin Simvastatin Yes Luis Felipe 1 tablet [facility] Xyzal Xyzal Yes Luis Felipe 1 tablet Common Allergy Allergy [facility] 24HR 24HR evening [facility] Toviaz Toviaz Yes Luis Felipe 1 tablet Commo n Cates [facility] Dexilant Dexilant Yes Luis Felipe 1 capsule Common Cates [facility] Symbicort Symbicort Yes Luis Felipe 2 puffs Common Cates [facility] Lunesta Lunesta Yes Luis Felipe 1 tablet Com mon Cates [facility] - [facility] bedtime [facility] Gabapentin Gabapentin Yes Luis Felipe 1 capsule Common Cates [facility] Montelukast Montelukast No Montelukas Sodium 10 Sodium 10 t Sodium MG MG 10 MG Lisinopril Lisinopril No 1{table QD Lisinopril 10 MG 10 MG t} 10 MG Metoprolol Metoprolol No Metoprolol Succinate Succinate Succinate ER 50 MG ER 50 MG ER 50 MG Escitalopra Escitalopra No Escitalopr m Oxalate m Oxalate am Oxalate 20 MG 20 MG 20 MG Montelukast Montelukast No Montelukas Sodium 10 Sodium 10 t Sodium MG MG 10 MG Dexilant 60 Dexilant 60 No 1{capsu QD Dexilant MG MG le} 60 MG ProAir HFA ProAir HFA No 2{puffs ProAir HFA 108 (90 108 (90 _as_nee 108 (90 Base) Base) ded} Base) MCG/ACT MCG/ACT MCG/ACT Myrbetriq Myrbetriq No 1{table QD Myrbetriq 50 MG 50 MG t} 50 MG Gabapentin Gabapentin No 1{capsu QD Gabapentin 100 MG 100 MG le} 100 MG Xyzal Xyzal No 1{table QD Xyzal Allergy Allergy t_in_th Allergy 24HR 5 MG 24HR 5 MG e_eveni 24HR 5 MG ng} ProAir HFA ProAir HFA No 2{puffs ProAir HFA 108 (90 108 (90 _as_nee 108 (90 Base) Base) ded} Base) MCG/ACT MCG/ACT MCG/ACT Dexilant 60 Dexilant 60 No 1{capsu QD Dexilant MG MG le} 60 MG Escitalopra Escitalopra No QD Escitalopr m Oxalate m Oxalate am Oxalate 20 MG 20 MG 20 MG Dicyclomine Dicyclomine No 1{table BID Dicyclomin HCl 20 MG HCl 20 MG t} e HCl 20 MG HYDROcodone HYDROcodone No 1{table TID HYDROcodon -Acetaminop -Acetaminop t_as_ne e-Acetamin hen 7.5-325 hen 7.5-325 eded} ophen MG MG 7.5-325 MG Lisinopril Lisinopril No Lisinopril 10 MG 10 MG 10 MG Fluticasone Fluticasone No Fluticason Propionate Propionate e 50 MCG/ACT 50 MCG/ACT Propionate 50 MCG/ACT Furosemide Furosemide No Furosemide 20 MG 20 MG 20 MG HYDROcodone HYDROcodone No 1{table TID HYDROcodon -Acetaminop -Acetaminop t_as_ne e-Acetamin hen 7.5-325 hen 7.5-325 eded} ophen MG MG 7.5-325 MG methIMAzole methIMAzole No methIMAzol 10 MG 10 MG e 10 MG Celecoxib Celecoxib No 1{capsu QD Celecoxib 200 MG 200 MG le_with 200 MG _food} Toviaz 4 MG Toviaz 4 MG No 1{table QD Toviaz 4 t} MG Lexapro 20 Lexapro 20 No 1{table QD Lexapro 20 MG MG t} MG Metoprolol Metoprolol No Metoprolol Succinate Succinate Succinate ER 50 MG ER 50 MG ER 50 MG Simvastatin Simvastatin No Simvastati 20 MG 20 MG n 20 MG Xyzal Xyzal No 1{table QD Xyzal Allergy Allergy t_in_th Allergy 24HR 5 MG 24HR 5 MG e_eveni 24HR 5 MG ng} Metoprolol Metoprolol No 1{table QD Metoprolol Succinate Succinate t} Succinate ER 50 MG ER 50 MG ER 50 MG Symbicort Symbicort No 2{puffs BID Symbicort 160-4.5 160-4.5 } 160-4.5 MCG/ACT MCG/ACT MCG/ACT Montelukast Montelukast No Montelukas Sodium 10 Sodium 10 t Sodium MG MG 10 MG tiZANidine tiZANidine No 1{table QD tiZANidine HCl 4 MG HCl 4 MG t_as_ne HCl 4 MG eded} methIMAzole methIMAzole No 1.5{tab QD methIMAzol 10 MG 10 MG let} e 10 MG Celecoxib Celecoxib No 1{capsu QD Celecoxib 200 MG 200 MG le_with 200 MG _food} tiZANidine tiZANidine No 1{table QD tiZANidine HCl 4 MG HCl 4 MG t_as_ne HCl 4 MG eded} Lisinopril Lisinopril No Lisinopril 10 MG 10 MG 10 MG methIMAzole methIMAzole No methIMAzol 10 MG 10 MG e 10 MG Fluticasone Fluticasone No Fluticason Propionate Propionate e 50 MCG/ACT 50 MCG/ACT Propionate 50 MCG/ACT Metoprolol Metoprolol No Metoprolol Succinate Succinate Succinate ER 50 MG ER 50 MG ER 50 MG Simvastatin Simvastatin No 1{table QD Simvastati 20 MG 20 MG t_in_th n 20 MG e_eveni ng} Dicyclomine Dicyclomine No 1{table BID Dicyclomin HCl 20 MG HCl 20 MG t} e HCl 20 MG Montelukast Montelukast No Montelukas Sodium 10 Sodium 10 t Sodium MG MG 10 MG Symbicort Symbicort No 2{puffs BID Symbicort 160-4.5 160-4.5 } 160-4.5 MCG/ACT MCG/ACT MCG/ACT Metoprolol Metoprolol No 1{table QD Metoprolol Succinate Succinate t} Succinate ER 50 MG ER 50 MG ER 50 MG Lisinopril Lisinopril No 1{table QD Lisinopril 10 MG 10 MG t} 10 MG Escitalopra Escitalopra No QD Escitalopr m Oxalate m Oxalate am Oxalate 20 MG 20 MG 20 MG HYDROcodone HYDROcodone No 1{table TID HYDROcodon -Acetaminop -Acetaminop t_as_ne e-Acetamin hen 7.5-325 hen 7.5-325 eded} ophen MG MG 7.5-325 MG Gabapentin Gabapentin No 1{capsu QD Gabapentin 100 MG 100 MG le} 100 MG Simvastatin Simvastatin No Simvastati 20 MG 20 MG n 20 MG Furosemide Furosemide No 1{table QD Furosemide 20 MG 20 MG t} 20 MG Montelukast Montelukast No 1{table QD Montelukas Sodium 10 Sodium 10 t} t Sodium MG MG 10 MG Celecoxib Celecoxib No 1{capsu QD Celecoxib 200 MG 200 MG le_with 200 MG _food} Fluticasone Fluticasone No 1{spray BID Fluticason Propionate Propionate _in_eac e 50 MCG/ACT 50 MCG/ACT h_nostr Propionate il} 50 MCG/ACT Xyzal Xyzal No 1{table QD Xyzal Allergy Allergy t_in_th Allergy 24HR 5 MG 24HR 5 MG e_eveni 24HR 5 MG ng} Lexapro 20 Lexapro 20 No 1{table QD Lexapro 20 MG MG t} MG Furosemide Furosemide No Furosemide 20 MG 20 MG 20 MG ProAir HFA ProAir HFA No 2{puffs ProAir HFA 108 (90 108 (90 _as_nee 108 (90 Base) Base) ded} Base) MCG/ACT MCG/ACT MCG/ACT methIMAzole methIMAzole No 1.5{tab QD methIMAzol 10 MG 10 MG let} e 10 MG Dexilant 60 Dexilant 60 No 1{capsu QD Dexilant MG MG le} 60 MG Toviaz 4 MG Toviaz 4 MG No 1{table QD Toviaz 4 t} MG Myrbetriq Myrbetriq No 1{table QD Myrbetriq 50 MG 50 MG t} 50 MG tiZANidine tiZANidine No 1{table QD tiZANidine HCl 4 MG HCl 4 MG t_as_ne HCl 4 MG eded} methIMAzole methIMAzole No 1{table QD methIMAzol 5 MG 5 MG t} e 5 MG Dexilant 60 Dexilant 60 No 1{capsu QD Dexilant MG MG le} 60 MG Lisinopril Lisinopril No 1{table QD Lisinopril 10 MG 10 MG t} 10 MG Montelukast Montelukast No 1{table QD Montelukas Sodium 10 Sodium 10 t} t Sodium MG MG 10 MG Xyzal Xyzal No 1{table QD Xyzal Allergy Allergy t_in_th Allergy 24HR 5 MG 24HR 5 MG e_eveni 24HR 5 MG ng} ProAir HFA ProAir HFA No 2{puffs ProAir HFA 108 (90 108 (90 _as_nee 108 (90 Base) Base) ded} Base) MCG/ACT MCG/ACT MCG/ACT Simvastatin Simvastatin No 1{table QD Simvastati 20 MG 20 MG t_in_th n 20 MG e_eveni ng} HYDROcodone HYDROcodone No 1{table TID HYDROcodon -Acetaminop -Acetaminop t_as_ne e-Acetamin hen 7.5-325 hen 7.5-325 eded} ophen MG MG 7.5-325 MG Metoprolol Metoprolol No 1{table QD Metoprolol Succinate Succinate t} Succinate ER 50 MG ER 50 MG ER 50 MG Celecoxib Celecoxib No 1{capsu QD Celecoxib 200 MG 200 MG le_with 200 MG _food} Myrbetriq Myrbetriq No 1{table QD Myrbetriq 50 MG 50 MG t} 50 MG methIMAzole methIMAzole No 1.5{tab QD methIMAzol 10 MG 10 MG let} e 10 MG Symbicort Symbicort No 2{puffs BID Symbicort 160-4.5 160-4.5 } 160-4.5 MCG/ACT MCG/ACT MCG/ACT Dicyclomine Dicyclomine No 1{table BID Dicyclomin HCl 20 MG HCl 20 MG t} e HCl 20 MG Escitalopra Escitalopra No Escitalopr m Oxalate m Oxalate am Oxalate 20 MG 20 MG 20 MG Lunesta 2 Lunesta 2 No 1{table QD Lunesta 2 MG MG t_immed MG iately_ before_ bedtime } Furosemide Furosemide No 1{table QD Furosemide 20 MG 20 MG t} 20 MG Toviaz 4 MG Toviaz 4 MG No 1{table QD Toviaz 4 t} MG Montelukast Montelukast No Montelukas Sodium 10 Sodium 10 t Sodium MG MG 10 MG Gabapentin Gabapentin No 1{capsu QD Gabapentin 100 MG 100 MG le} 100 MG tiZANidine tiZANidine No 1{table QD tiZANidine HCl 4 MG HCl 4 MG t_as_ne HCl 4 MG eded} Dexilant 60 Dexilant 60 No 1{capsu QD Dexilant MG MG le} 60 MG Metoprolol Metoprolol No Metoprolol Succinate Succinate Succinate ER 50 MG ER 50 MG ER 50 MG Fluticasone Fluticasone No 1{spray BID Fluticason Propionate Propionate _in_eac e 50 MCG/ACT 50 MCG/ACT h_nostr Propionate il} 50 MCG/ACT Lisinopril Lisinopril No Lisinopril 10 MG 10 MG 10 MG Simvastatin Simvastatin No Simvastati 20 MG 20 MG n 20 MG methIMAzole methIMAzole No methIMAzol 10 MG 10 MG e 10 MG Lexapro 20 Lexapro 20 No 1{table QD Lexapro 20 MG MG t} MG Furosemide Furosemide No 1{table QD Furosemide 20 MG 20 MG t} 20 MG Fluticasone Fluticasone No Fluticason Propionate Propionate e 50 MCG/ACT 50 MCG/ACT Propionate 50 MCG/ACT [place] No 1{table QID [place] 7.5-325 MG 7.5-325 MG t_as_ne 7.5-325 MG eded} Toviaz 4 MG Toviaz 4 MG No 1{table QD Toviaz 4 t} MG Fluticasone Fluticasone No Fluticason Propionate Propionate e 50 MCG/ACT 50 MCG/ACT Propionate 50 MCG/ACT Myrbetriq Myrbetriq No 1{table QD Myrbetriq 50 MG 50 MG t} 50 MG Mupirocin 2 Mupirocin 2 No 1{appli TID Mupirocin % % cation} 2 % Lisinopril Lisinopril No 1{table QD Lisinopril 10 MG 10 MG t} 10 MG Furosemide Furosemide No 1{table QD Furosemide 20 MG 20 MG t} 20 MG Symbicort Symbicort No 2{puffs BID Symbicort 160-4.5 160-4.5 } 160-4.5 MCG/ACT MCG/ACT MCG/ACT Metoprolol Metoprolol No 1{table QD Metoprolol Succinate Succinate t} Succinate ER 50 MG ER 50 MG ER 50 MG Lexapro 20 Lexapro 20 No 1{table QD Lexapro 20 MG MG t} MG Simvastatin Simvastatin No 1{table QD Simvastati 20 MG 20 MG t_in_th n 20 MG e_eveni ng} Gabapentin Gabapentin No 1{capsu QD Gabapentin 100 MG 100 MG le} 100 MG Montelukast Montelukast No Montelukas Sodium 10 Sodium 10 t Sodium MG MG 10 MG Dexilant 60 Dexilant 60 No 1{capsu QD Dexilant MG MG le} 60 MG ProAir HFA ProAir HFA No 2{puffs ProAir HFA 108 (90 108 (90 _as_nee 108 (90 Base) Base) ded} Base) MCG/ACT MCG/ACT MCG/ACT HYDROcodone HYDROcodone No 1{table TID HYDROcodon -Acetaminop -Acetaminop t_as_ne e-Acetamin hen 7.5-325 hen 7.5-325 eded} ophen MG MG 7.5-325 MG Xyzal Xyzal No 1{table QD Xyzal Allergy Allergy t_in_th Allergy 24HR 5 MG 24HR 5 MG e_eveni 24HR 5 MG ng} Celecoxib Celecoxib No 1{capsu QD Celecoxib 200 MG 200 MG le_with 200 MG _food} tiZANidine tiZANidine No 1{table QD tiZANidine HCl 4 MG HCl 4 MG t_as_ne HCl 4 MG eded} Xyzal Xyzal No 1{table QD Xyzal Allergy Allergy t_in_th Allergy 24HR 5 MG 24HR 5 MG e_eveni 24HR 5 MG ng} Fluticasone Fluticasone No Fluticason Propionate Propionate e 50 MCG/ACT 50 MCG/ACT Propionate 50 MCG/ACT Mupirocin 2 Mupirocin 2 No 1{appli TID Mupirocin % % cation} 2 % Dexilant 60 Dexilant 60 No 1{capsu QD Dexilant MG MG le} 60 MG Toviaz 4 MG Toviaz 4 MG No 1{table QD Toviaz 4 t} MG methIMAzole methIMAzole No 1{table QD methIMAzol 5 MG 5 MG t} e 5 MG Simvastatin Simvastatin No 1{table QD Simvastati 20 MG 20 MG t_in_th n 20 MG e_eveni ng} [place] No 1{table QID [place] 7.5-325 MG 7.5-325 MG t_as_ne 7.5-325 MG eded} Symbicort Symbicort No 2{puffs BID Symbicort 160-4.5 160-4.5 } 160-4.5 MCG/ACT MCG/ACT MCG/ACT Lisinopril Lisinopril No 1{table QD Lisinopril 10 MG 10 MG t} 10 MG Lexapro 20 Lexapro 20 No 1{table QD Lexapro 20 MG MG t} MG HYDROcodone HYDROcodone No 1{table TID HYDROcodon -Acetaminop -Acetaminop t_as_ne e-Acetamin hen 7.5-325 hen 7.5-325 eded} ophen MG MG 7.5-325 MG Myrbetriq Myrbetriq No 1{table QD Myrbetriq 50 MG 50 MG t} 50 MG tiZANidine tiZANidine No 1{table QD tiZANidine HCl 4 MG HCl 4 MG t_as_ne HCl 4 MG eded} Lunesta 2 Lunesta 2 No 1{table QD Lunesta 2 MG MG t_immed MG iately_ before_ bedtime } Gabapentin Gabapentin No 1{capsu QD Gabapentin 100 MG 100 MG le} 100 MG Premarin Premarin No Premarin 0.625 MG/GM 0.625 MG/GM 0.625 MG/GM Montelukast Montelukast No Montelukas Sodium 10 Sodium 10 t Sodium MG MG 10 MG ProAir HFA ProAir HFA No 2{puffs ProAir HFA 108 (90 108 (90 _as_nee 108 (90 Base) Base) ded} Base) MCG/ACT MCG/ACT MCG/ACT Metoprolol Metoprolol No 1{table QD Metoprolol Succinate Succinate t} Succinate ER 50 MG ER 50 MG ER 50 MG Dexilant 60 Dexilant 60 No 1{capsu QD Dexilant MG MG le} 60 MG Furosemide Furosemide No 1{table QD Furosemide 20 MG 20 MG t} 20 MG Celecoxib Celecoxib No 1{capsu QD Celecoxib 200 MG 200 MG le_with 200 MG _food} Furosemide Furosemide No 1{table QD Furosemide 20 MG 20 MG t} 20 MG Symbicort Symbicort No 2{puffs BID Symbicort 160-4.5 160-4.5 } 160-4.5 MCG/ACT MCG/ACT MCG/ACT Lexapro 20 Lexapro 20 No 1{table QD Lexapro 20 MG MG t} MG Gabapentin Gabapentin No 1{capsu QD Gabapentin 100 MG 100 MG le} 100 MG Xyzal Xyzal No 1{table QD Xyzal Allergy Allergy t_in_th Allergy 24HR 5 MG 24HR 5 MG e_eveni 24HR 5 MG ng} Montelukast Montelukast No 1{table QD Montelukas Sodium 10 Sodium 10 t} t Sodium MG MG 10 MG Metoprolol Metoprolol No 1{table QD Metoprolol Succinate Succinate t} Succinate ER 50 MG ER 50 MG ER 50 MG Simvastatin Simvastatin No 1{table QD Simvastati 20 MG 20 MG t_in_th n 20 MG e_eveni ng} Lisinopril Lisinopril No 1{table QD Lisinopril 10 MG 10 MG t} 10 MG Furosemide Furosemide No 1{table QD Furosemide 20 MG 20 MG t} 20 MG Montelukast Montelukast No Montelukas Sodium 10 Sodium 10 t Sodium MG MG 10 MG Simvastatin Simvastatin No 1{table QD Simvastati 20 MG 20 MG t_in_th n 20 MG e_eveni ng} Fluticasone Fluticasone No 1{spray BID Fluticason Propionate Propionate _in_eac e 50 MCG/ACT 50 MCG/ACT h_nostr Propionate il} 50 MCG/ACT Toviaz 4 MG Toviaz 4 MG No 1{table QD Toviaz 4 t} MG Myrbetriq Myrbetriq No 1{table QD Myrbetriq 50 MG 50 MG t} 50 MG Metoprolol Metoprolol No 1{table QD Metoprolol Succinate Succinate t} Succinate ER 50 MG ER 50 MG ER 50 MG ProAir HFA ProAir HFA No 2{puffs ProAir HFA 108 (90 108 (90 _as_nee 108 (90 Base) Base) ded} Base) MCG/ACT MCG/ACT MCG/ACT [place] No 1{table QID [place] 7.5-325 MG 7.5-325 MG t_as_ne 7.5-325 MG eded} Celecoxib Celecoxib No 1{capsu QD Celecoxib 200 MG 200 MG le_with 200 MG _food} HYDROcodone HYDROcodone No 1{table TID HYDROcodon -Acetaminop -Acetaminop t_as_ne e-Acetamin hen 7.5-325 hen 7.5-325 eded} ophen MG MG 7.5-325 MG methIMAzole methIMAzole No 1{table QD methIMAzol 5 MG 5 MG t} e 5 MG Mupirocin 2 Mupirocin 2 No 1{appli TID Mupirocin % % cation} 2 % Lexapro 20 Lexapro 20 No 1{table QD Lexapro 20 MG MG t} MG tiZANidine tiZANidine No 1{table QD tiZANidine HCl 4 MG HCl 4 MG t_as_ne HCl 4 MG eded} Lisinopril Lisinopril No 1{table QD Lisinopril 10 MG 10 MG t} 10 MG Dexilant 60 Dexilant 60 No 1{capsu QD Dexilant MG MG le} 60 MG Fluticasone Fluticasone No Fluticason Propionate Propionate e 50 MCG/ACT 50 MCG/ACT Propionate 50 MCG/ACT Lunesta 2 Lunesta 2 No 1{table QD Lunesta 2 MG MG t_immed MG iately_ before_ bedtime } Dexilant 60 Dexilant 60 No 1{capsu QD Dexilant MG MG le} 60 MG Premarin Premarin No Premarin 0.625 MG/GM 0.625 MG/GM 0.625 MG/GM methIMAzole methIMAzole No 1{table QD methIMAzol 5 MG 5 MG t} e 5 MG Furosemide Furosemide No 1{table QD Furosemide 20 MG 20 MG t} 20 MG Lisinopril Lisinopril No 1{table QD Lisinopril 10 MG 10 MG t} 10 MG Lexapro 20 Lexapro 20 No 1{table QD Lexapro 20 MG MG t} MG Symbicort Symbicort No 2{puffs BID Symbicort 160-4.5 160-4.5 } 160-4.5 MCG/ACT MCG/ACT MCG/ACT Montelukast Montelukast No Montelukas Sodium 10 Sodium 10 t Sodium MG MG 10 MG Simvastatin Simvastatin No 1{table QD Simvastati 20 MG 20 MG t_in_th n 20 MG e_eveni ng} Simvastatin Simvastatin No 1{table QD Simvastati 20 MG 20 MG t_in_th n 20 MG e_eveni ng} Metoprolol Metoprolol No 1{table QD Metoprolol Succinate Succinate t} Succinate ER 50 MG ER 50 MG ER 50 MG Fluticasone Fluticasone No 1{spray BID Fluticason Propionate Propionate _in_eac e 50 MCG/ACT 50 MCG/ACT h_nostr Propionate il} 50 MCG/ACT methIMAzole methIMAzole No 1{table QD methIMAzol 5 MG 5 MG t} e 5 MG Furosemide Furosemide No 1{table QD Furosemide 20 MG 20 MG t} 20 MG Lexapro 20 Lexapro 20 No 1{table QD Lexapro 20 MG MG t} MG Toviaz 4 MG Toviaz 4 MG No 1{table QD Toviaz 4 t} MG Myrbetriq Myrbetriq No 1{table QD Myrbetriq 50 MG 50 MG t} 50 MG Metoprolol Metoprolol No 1{table QD Metoprolol Succinate Succinate t} Succinate ER 50 MG ER 50 MG ER 50 MG ProAir HFA ProAir HFA No 2{puffs ProAir HFA 108 (90 108 (90 _as_nee 108 (90 Base) Base) ded} Base) MCG/ACT MCG/ACT MCG/ACT Mupirocin 2 Mupirocin 2 No 1{appli TID Mupirocin % % cation} 2 % Celecoxib Celecoxib No 1{capsu QD Celecoxib 200 MG 200 MG le_with 200 MG _food} HYDROcodone HYDROcodone No 1{table TID HYDROcodon -Acetaminop -Acetaminop t_as_ne e-Acetamin hen 7.5-325 hen 7.5-325 eded} ophen MG MG 7.5-325 MG [place] No 1{table QID [place] 7.5-325 MG 7.5-325 MG t_as_ne 7.5-325 MG eded} Gabapentin Gabapentin No 1{capsu QD Gabapentin 100 MG 100 MG le} 100 MG Xyzal Xyzal No 1{table QD Xyzal Allergy Allergy t_in_th Allergy 24HR 5 MG 24HR 5 MG e_eveni 24HR 5 MG ng} tiZANidine tiZANidine No 1{table QD tiZANidine HCl 4 MG HCl 4 MG t_as_ne HCl 4 MG eded} Lisinopril Lisinopril No 1{table QD Lisinopril 10 MG 10 MG t} 10 MG Dexilant 60 Dexilant 60 No 1{capsu QD Dexilant MG MG le} 60 MG Fluticasone Fluticasone No Fluticason Propionate Propionate e 50 MCG/ACT 50 MCG/ACT Propionate 50 MCG/ACT Lunesta 2 Lunesta 2 No 1{table QD Lunesta 2 MG MG t_immed MG iately_ before_ bedtime } Dexilant 60 Dexilant 60 No 1{capsu QD Dexilant MG MG le} 60 MG Premarin Premarin No Premarin 0.625 MG/GM 0.625 MG/GM 0.625 MG/GM methIMAzole methIMAzole No 1{table QD methIMAzol 5 MG 5 MG t} e 5 MG Simvastatin Simvastatin No 1{table QD Simvastati 20 MG 20 MG t_in_th n 20 MG e_eveni ng} Lisinopril Lisinopril No 1{table QD Lisinopril 10 MG 10 MG t} 10 MG Furosemide Furosemide No 1{table QD Furosemide 20 MG 20 MG t} 20 MG Symbicort Symbicort No 2{puffs BID Symbicort 160-4.5 160-4.5 } 160-4.5 MCG/ACT MCG/ACT MCG/ACT methIMAzole methIMAzole No 1{table QD methIMAzol 5 MG 5 MG t} e 5 MG Simvastatin Simvastatin No 1{table QD Simvastati 20 MG 20 MG t_in_th n 20 MG e_eveni ng} Montelukast Montelukast No Montelukas Sodium 10 Sodium 10 t Sodium MG MG 10 MG Metoprolol Metoprolol No 1{table QD Metoprolol Succinate Succinate t} Succinate ER 50 MG ER 50 MG ER 50 MG Lexapro 20 Lexapro 20 No 1{table QD Lexapro 20 MG MG t} MG [place] No 1{table QID [place] 7.5-325 MG 7.5-325 MG t_as_ne 7.5-325 MG eded} Furosemide Furosemide No 1{table QD Furosemide 20 MG 20 MG t} 20 MG Xyzal Xyzal No 1{table QD Xyzal Allergy Allergy t_in_th Allergy 24HR 5 MG 24HR 5 MG e_eveni 24HR 5 MG ng} HYDROcodone HYDROcodone No 1{table TID HYDROcodon -Acetaminop -Acetaminop t_as_ne e-Acetamin hen 7.5-325 hen 7.5-325 eded} ophen MG MG 7.5-325 MG Toviaz 4 MG Toviaz 4 MG No 1{table QD Toviaz 4 t} MG tiZANidine tiZANidine No 1{table QD tiZANidine HCl 4 MG HCl 4 MG t_as_ne HCl 4 MG eded} Lisinopril Lisinopril No 1{table QD Lisinopril 10 MG 10 MG t} 10 MG Fluticasone Fluticasone No Fluticason Propionate Propionate e 50 MCG/ACT 50 MCG/ACT Propionate 50 MCG/ACT Dexilant 60 Dexilant 60 No 1{capsu QD Dexilant MG MG le} 60 MG ProAir HFA ProAir HFA No 2{puffs ProAir HFA 108 (90 108 (90 _as_nee 108 (90 Base) Base) ded} Base) MCG/ACT MCG/ACT MCG/ACT Mupirocin 2 Mupirocin 2 No 1{appli TID Mupirocin % % cation} 2 % Gabapentin Gabapentin No 1{capsu QD Gabapentin 100 MG 100 MG le} 100 MG Celecoxib Celecoxib No 1{capsu QD Celecoxib 200 MG 200 MG le_with 200 MG _food} Lexapro 20 Lexapro 20 No 1{table QD Lexapro 20 MG MG t} MG Myrbetriq Myrbetriq No 1{table QD Myrbetriq 50 MG 50 MG t} 50 MG Metoprolol Metoprolol No 1{table QD Metoprolol Succinate Succinate t} Succinate ER 50 MG ER 50 MG ER 50 MG Lunesta 2 Lunesta 2 No 1{table QD Lunesta 2 MG MG t_immed MG iately_ before_ bedtime } Dexilant 60 Dexilant 60 No 1{capsu QD Dexilant MG MG le} 60 MG Premarin Premarin No Premarin 0.625 MG/GM 0.625 MG/GM 0.625 MG/GM methIMAzole methIMAzole No 1{table QD methIMAzol 5 MG 5 MG t} e 5 MG Furosemide Furosemide No 1{table QD Furosemide 20 MG 20 MG t} 20 MG Lexapro 20 Lexapro 20 No 1{table QD Lexapro 20 MG MG t} MG HYDROcodone HYDROcodone No 1{table TID HYDROcodon -Acetaminop -Acetaminop t_as_ne e-Acetamin hen 7.5-325 hen 7.5-325 eded} ophen MG MG 7.5-325 MG Premarin Premarin No Premarin 0.625 MG/GM 0.625 MG/GM 0.625 MG/GM Montelukast Montelukast No Montelukas Sodium 10 Sodium 10 t Sodium MG MG 10 MG Celecoxib Celecoxib No 1{capsu QD Celecoxib 200 MG 200 MG le_with 200 MG _food} [place] No 1{table QID [place] 7.5-325 MG 7.5-325 MG t_as_ne 7.5-325 MG eded} Toviaz 4 MG Toviaz 4 MG No 1{table QD Toviaz 4 t} MG Montelukast Montelukast No 1{table QD Montelukas Sodium 10 Sodium 10 t} t Sodium MG MG 10 MG methIMAzole methIMAzole No 1{table QD methIMAzol 5 MG 5 MG t} e 5 MG Xyzal Xyzal No 1{table QD Xyzal Allergy Allergy t_in_th Allergy 24HR 5 MG 24HR 5 MG e_eveni 24HR 5 MG ng} ProAir HFA ProAir HFA No 2{puffs ProAir HFA 108 (90 108 (90 _as_nee 108 (90 Base) Base) ded} Base) MCG/ACT MCG/ACT MCG/ACT Dexilant 60 Dexilant 60 No 1{capsu QD Dexilant MG MG le} 60 MG Mupirocin 2 Mupirocin 2 No 1{appli TID Mupirocin % % cation} 2 % Albuterol Albuterol No Albuterol Sulfate HFA Sulfate HFA Sulfate 108 (90 108 (90 HFA 108 Base) Base) (90 Base) MCG/ACT MCG/ACT MCG/ACT Myrbetriq Myrbetriq No 1{table QD Myrbetriq 50 MG 50 MG t} 50 MG Fluticasone Fluticasone No 1{spray BID Fluticason Propionate Propionate _in_eac e 50 MCG/ACT 50 MCG/ACT h_nostr Propionate il} 50 MCG/ACT methIMAzole methIMAzole No 1{table QD methIMAzol 10 MG 10 MG t} e 10 MG Metoprolol Metoprolol No 1{table QD Metoprolol Succinate Succinate t} Succinate ER 50 MG ER 50 MG ER 50 MG Simvastatin Simvastatin No 1{table QD Simvastati 20 MG 20 MG t_in_th n 20 MG e_eveni ng} Dicyclomine Dicyclomine No 1{table BID Dicyclomin HCl 20 MG HCl 20 MG t} e HCl 20 MG Benzonatate Benzonatate No Benzonatat 200 MG 200 MG e 200 MG Metoprolol Metoprolol No 1{table QD Metoprolol Succinate Succinate t} Succinate ER 50 MG ER 50 MG ER 50 MG Symbicort Symbicort No 2{puffs BID Symbicort 160-4.5 160-4.5 } 160-4.5 MCG/ACT MCG/ACT MCG/ACT Fluticasone Fluticasone No Fluticason Propionate Propionate e 50 MCG/ACT 50 MCG/ACT Propionate 50 MCG/ACT tiZANidine tiZANidine No 1{table QD tiZANidine HCl 4 MG HCl 4 MG t_as_ne HCl 4 MG eded} Gabapentin Gabapentin No 1{capsu QD Gabapentin 100 MG 100 MG le} 100 MG Lisinopril Lisinopril No 1{table QD Lisinopril 10 MG 10 MG t} 10 MG Furosemide Furosemide No 1{table QD Furosemide 20 MG 20 MG t} 20 MG Simvastatin Simvastatin No 1{table QD Simvastati 20 MG 20 MG t_in_th n 20 MG e_eveni ng} Lisinopril Lisinopril No 1{table QD Lisinopril 10 MG 10 MG t} 10 MG Lexapro 20 Lexapro 20 No 1{table QD Lexapro 20 MG MG t} MG Dexilant 60 Dexilant 60 No 1{capsu QD Dexilant MG MG le} 60 MG Lunesta 2 Lunesta 2 No 1{table QD Lunesta 2 MG MG t_immed MG iately_ before_ bedtime } Furosemide Furosemide No 1{table QD Furosemide 20 MG 20 MG t} 20 MG Xyzal Xyzal No 1{table QD Xyzal Allergy Allergy t_in_th Allergy 24HR 5 MG 24HR 5 MG e_eveni 24HR 5 MG ng} ProAir HFA ProAir HFA No 2{puffs ProAir HFA 108 (90 108 (90 _as_nee 108 (90 Base) Base) ded} Base) MCG/ACT MCG/ACT MCG/ACT Premarin Premarin No Premarin 0.625 MG/GM 0.625 MG/GM 0.625 MG/GM Lexapro 20 Lexapro 20 No 1{table QD Lexapro 20 MG MG t} MG HYDROcodone HYDROcodone No 1{table TID HYDROcodon -Acetaminop -Acetaminop t_as_ne e-Acetamin hen 7.5-325 hen 7.5-325 eded} ophen MG MG 7.5-325 MG [place] No 1{table QID [place] 7.5-325 MG 7.5-325 MG t_as_ne 7.5-325 MG eded} Albuterol Albuterol No Albuterol Sulfate HFA Sulfate HFA Sulfate 108 (90 108 (90 HFA 108 Base) Base) (90 Base) MCG/ACT MCG/ACT MCG/ACT methIMAzole methIMAzole No 1{table QD methIMAzol 5 MG 5 MG t} e 5 MG Toviaz 4 MG Toviaz 4 MG No 1{table QD Toviaz 4 t} MG Montelukast Montelukast No 1{table QD Montelukas Sodium 10 Sodium 10 t} t Sodium MG MG 10 MG Myrbetriq Myrbetriq No 1{table QD Myrbetriq 50 MG 50 MG t} 50 MG Mupirocin 2 Mupirocin 2 No 1{appli TID Mupirocin % % cation} 2 % Dexilant 60 Dexilant 60 No 1{capsu QD Dexilant MG MG le} 60 MG tiZANidine tiZANidine No 1{table QD tiZANidine HCl 4 MG HCl 4 MG t_as_ne HCl 4 MG eded} Metoprolol Metoprolol No 1{table QD Metoprolol Succinate Succinate t} Succinate ER 50 MG ER 50 MG ER 50 MG methIMAzole methIMAzole No 1{table QD methIMAzol 10 MG 10 MG t} e 10 MG Metoprolol Metoprolol No 1{table QD Metoprolol Succinate Succinate t} Succinate ER 50 MG ER 50 MG ER 50 MG Fluticasone Fluticasone No Fluticason Propionate Propionate e 50 MCG/ACT 50 MCG/ACT Propionate 50 MCG/ACT Dicyclomine Dicyclomine No 1{table BID Dicyclomin HCl 20 MG HCl 20 MG t} e HCl 20 MG Benzonatate Benzonatate No Benzonatat 200 MG 200 MG e 200 MG Simvastatin Simvastatin No 1{table QD Simvastati 20 MG 20 MG t_in_th n 20 MG e_eveni ng} Symbicort Symbicort No 2{puffs BID Symbicort 160-4.5 160-4.5 } 160-4.5 MCG/ACT MCG/ACT MCG/ACT Montelukast Montelukast No Montelukas Sodium 10 Sodium 10 t Sodium MG MG 10 MG Celecoxib Celecoxib No 1{capsu QD Celecoxib 200 MG 200 MG le_with 200 MG _food} Gabapentin Gabapentin No 1{capsu QD Gabapentin 100 MG 100 MG le} 100 MG Lisinopril Lisinopril No 1{table QD Lisinopril 10 MG 10 MG t} 10 MG Furosemide Furosemide No 1{table QD Furosemide 20 MG 20 MG t} 20 MG Simvastatin Simvastatin No 1{table QD Simvastati 20 MG 20 MG t_in_th n 20 MG e_eveni ng} Lisinopril Lisinopril No 1{table QD Lisinopril 10 MG 10 MG t} 10 MG Lexapro 20 Lexapro 20 No 1{table QD Lexapro 20 MG MG t} MG Dexilant 60 Dexilant 60 No 1{capsu QD Dexilant MG MG le} 60 MG Lunesta 2 Lunesta 2 No 1{table QD Lunesta 2 MG MG t_immed MG iately_ before_ bedtime } Furosemide Furosemide No 1{table QD Furosemide 20 MG 20 MG t} 20 MG Xyzal Xyzal No 1{table QD Xyzal Allergy Allergy t_in_th Allergy 24HR 5 MG 24HR 5 MG e_eveni 24HR 5 MG ng} ProAir HFA ProAir HFA No 2{puffs ProAir HFA 108 (90 108 (90 _as_nee 108 (90 Base) Base) ded} Base) MCG/ACT MCG/ACT MCG/ACT Premarin Premarin No Premarin 0.625 MG/GM 0.625 MG/GM 0.625 MG/GM Lexapro 20 Lexapro 20 No 1{table QD Lexapro 20 MG MG t} MG HYDROcodone HYDROcodone No 1{table TID HYDROcodon -Acetaminop -Acetaminop t_as_ne e-Acetamin hen 7.5-325 hen 7.5-325 eded} ophen MG MG 7.5-325 MG [place] No 1{table QID [place] 7.5-325 MG 7.5-325 MG t_as_ne 7.5-325 MG eded} Albuterol Albuterol No Albuterol Sulfate HFA Sulfate HFA Sulfate 108 (90 108 (90 HFA 108 Base) Base) (90 Base) MCG/ACT MCG/ACT MCG/ACT methIMAzole methIMAzole No 1{table QD methIMAzol 5 MG 5 MG t} e 5 MG Toviaz 4 MG Toviaz 4 MG No 1{table QD Toviaz 4 t} MG Montelukast Montelukast No 1{table QD Montelukas Sodium 10 Sodium 10 t} t Sodium MG MG 10 MG Myrbetriq Myrbetriq 2022- No 1{table QD Myrbetriq 50 MG 50 MG 05-15 t} 50 MG 00:00 :00 Toviaz 4 MG Toviaz 4 MG 2022- No 1{table QD Toviaz 4 05-15 t} MG 00:00 :00 Myrbetriq Myrbetriq 2021- No 1{table QD Myrbetriq 50 MG 50 MG -07 t} 50 MG 00:00 :00 Myrbetriq Myrbetriq 2021- No 1{table QD Myrbetriq 50 MG 50 MG 04-12 t} 50 MG 00:00 :00 Immunizations Ordered Immunization Filled Immunization Date Status Commen ts Source Name Name COVID-19 Vaccine COVID-19 Vaccine 2021-08-20 Completed [facility] ([facility] ([facility] ATE) 13:30:00 [facility] COVID-19 Vaccine COVID-19 Vaccine 2021-08-20 Completed [facility] (Karl) (Karl) 13:30:00 [facility] COVID-19 Vaccine COVID-19 Vaccine 2021-08-20 Completed [facility] (Karl) (Karl) 13:30:00 [facility] COVID-19 Vaccine COVID-19 Vaccine 2021-08-20 Completed [facility] (Karl) (Karl) 13:30:00 [facility] COVID-19 Vaccine COVID-19 Vaccine 2021-08-20 Completed [facility] - ([facility]arl) ([place]) 13:30:00 [facility] COVID-19 Vaccine COVID-19 Vaccine 2021-08-20 Completed [facility] (Karl) (Karl) 13:30:00 [facility] COVID-19 Vaccine COVID-19 Vaccine 2021-08-20 Completed [facility] (Karl) (Karl) 13:30:00 [facility] COVID-19 Vaccine COVID-19 Vaccine 2021-08-20 Completed [facility] - (Karl) (Karl) 13:30:00 [facility] COVID-19 Vaccine COVID-19 Vaccine 2021-08-20 Completed [facility] (Karl) (Karl) 13:30:00 [facility] COVID-19 Vaccine COVID-19 Vaccine 2021-08-20 Completed [facility] (Karl) (Karl) 13:30:00 [facility] COVID-19 Vaccine COVID-19 Vaccine 2021-08-20 Completed [facility] (Karl) (Karl) 13:30:00 [facility] COVID-19 Vaccine COVID-19 Vaccine 2021-08-20 Completed [facility] (Karl) (Karl) 13:30:00 [facility] COVID-19 Vaccine COVID-19 Vaccine 2021-08-20 Completed [facility] (Karl) (Karl) 13:30:00 [facility] Karl SARS-CoV-2 2021-08-20 Completed [facility]00 [facility] Karl SARS-CoV-2 2021-08-20 Completed [facility] Vacc[facility] 00:00:00 Shani Rueda [facility] FluAD FluAD 2021-08-08 Completed [facility] - 13:52:00 [facility] FluAD FluAD 2021-08-08 Completed [facility] - 13:52:00 [facility] FluAD FluAD 2021-08-08 Completed [facility] - 13:52:00 [facility] Influenza TIV (IM) 2021-08-08 Completed [facility] 00[facility]:00 [place] Rueda [facility] FluAD FluAD 2021-07-24 Completed [facility] - 13:29:00 [facility] FluAD FluAD 2021-07-24 Completed [facility] - 13:29:00 [facility] FluAD FluAD 2021-07-24 Completed [facility] - 13:29:00 [facility] FluAD FluAD 2021-07-24 Completed [facility] - 13:29:00 [facility] FluAD FluAD 2021-07-24 Completed [facility] - 13:29:00 [facility] FluAD FluAD 2021-07-24 Completed [facility] - 13[facility]29:00 [facility] FluAD FluAD 2021-07-24 Completed [facility] - 13[facility]29:00 [facility] FluAD FluAD 2021-07-24 Completed [facility] - 13[facility]29:00 [facility] FluAD FluAD 2021-07-24 Completed [facility] - 13[facility]29:00 [facility] FluAD FluAD 2021-07-24 Completed [facility] - 13[facility]29:00 [facility] FluAD FluAD 2021-07-24 Completed [facility] - 13:29:00 [facility] FluAD FluAD 2021-07-24 Completed [facility] - 13:29:00 [facility] FluAD FluAD 2021-07-24 Completed [facility] - 13[facility]29:00 [facility] Influenza (IM) 2021-07-24 Completed [facility] Preservative Free 00:00:00 [place] Matthieu Reuda RUST Influenza TIV (IM) 2021-07-24 Completed [facility] 00[facility]00 [facility] Influenza (IM) 2021-07-24 Completed [facility] Preservative Free 00:00:00 [facility] COVID-19 Vaccine COVID-19 Vaccine 2020-12-28 [facility] (Karl) 15:04:00 [facility] COVID-19 Vaccine COVID-19 Vaccine 2020-12-28 [facility] ([facility] (Karl) 15:04:00 [facility] COVID-19 Vaccine COVID-19 Vaccine 2020-12-28 [facility]pleted [facility] ([facility] (Karl) 15:04:00 [facility] COVID-19 Vaccine COVID-19 Vaccine 2020-12-28 [facility]pleted [facility] ([facility] (Karl) 15:04:00 [facility] COVID-19 Vaccine COVID-19 Vaccine 2020-12-28 [facility]pleted [facility] ([facility] (Karl) 15:04:00 [facility] COVID-19 Vaccine COVID-19 Vaccine 2020-12-28 [facility]pleted [facility] ([facility] (Karl) 15:04:00 [facility] COVID-19 Vaccine COVID-19 Vaccine 2020-12-28 [facility]pleted [facility] ([facility] (Karl) 15:04:00 [facility] COVID-19 Vaccine COVID-19 Vaccine 2020-12-28 Completed [facility] ([facility] (Karl) 15:04:00 [facility] COVID-19 Vaccine COVID-19 Vaccine 2020-12-28 Completed [facility] ([facility]arl[facility] (Karl) 15:04:00 [facility] COVID-19 Vaccine COVID-19 Vaccine 2020-12-28 [facility]pleted [facility] ([facility] (Karl) 15:04:00 [facility] COVID-19 Vaccine COVID-19 Vaccine 2020-12-28 Completed [facility] ([facility]arl[facility] (Karl) 15:04:00 [facility] COVID-19 Vaccine COVID-19 Vaccine 2020-12-28 [facility]pleted [facility] ([facility] (Karl) 15:04:00 [facility] COVID-19 Vaccine COVID-19 Vaccine 2020-12-28 [facility]pleted [facility] ([facility] (Karl) 15:04:00 [facility] COVID-19 Vaccine COVID-19 Vaccine 2020-12-28 [facility]pleted [facility] ([facility]arl[facility] (Karl) 15:04:00 [facility] COVID-19 Vaccine COVID-19 Vaccine 2020-12-28 [facility]pleted [facility] ([facility] (Karl) 15:04:00 [facility] COVID-19 Vaccine COVID-19 Vaccine 2020-12-28 Completed [facility] ([facility]) (Karl) 15:04:00 [facility] COVID-19 Vaccine COVID-19 Vaccine 2020-12-28 Completed [facility] ([facility]arl[facility] (Karl) 15:04:00 [facility] COVID-19 Vaccine COVID-19 Vaccine 2020-12-28 Completed [facility] (Karl) (Karl) 15:04:00 [facility] COVID-19 Vaccine COVID-19 Vaccine 2020-12-28 Completed [facility] (Karl) (Karl) 15:04:00 [facility] Karl SARS-CoV-2 2020-12-28 Completed Univer [facility] of Vaccination 00:00:00 [facility] Karl SARS-CoV-2 2020-12-28 Completed Univer [facility]ity of Vaccination 00:00:00 [facility] SARS-COV-2 COVID-19 2020-12-28 Completed Unive rsity of MODERNA VACCINE 00:00:00 [facility] SARS-COV-2 COVID-19 2020-12-28 Completed Unive rsity of MODERNA 12+ YRS 00:00:00 [facility] VACCINE Branch SARS-COV-2 COVID-19 2020-12-28 Completed Unive rsity of MODERNA 12+ YRS 00:00:00 [facility] VACCINE Branch SARS-COV-2 COVID-19 2020-12-28 Completed Unive rsity of MODERNA VACCINE 00:00:00 [facility] SARS-COV-2 COVID-19 2020-12-28 Completed Unive rsity of MODERNA VACCINE 00:00:00 [facility] SARS-COV-2 COVID-19 2020-12-28 Completed Unive rsity of MODERNA VACCINE 00:00:00 [facility] COVID-19 Vaccine COVID-19 Vaccine 2020-11-30 Completed [facility] (Karl) (Karl) 15:03:00 [facility] COVID-19 Vaccine COVID-19 Vaccine 2020-11-30 Completed [facility] (Karl) (Karl) 15:03:00 [facility] COVID-19 Vaccine COVID-19 Vaccine 2020-11-30 Completed [facility] (Karl) (Karl) 15:03:00 [facility] COVID-19 Vaccine COVID-19 Vaccine 2020-11-30 Completed [facility] (Karl) (Karl) 15:03:00 [facility] COVID-19 Vaccine COVID-19 Vaccine 2020-11-30 Completed [facility] (Karl) (Karl) 15:03:00 [facility] COVID-19 Vaccine COVID-19 Vaccine 2020-11-30 Completed [facility] (Karl) (Karl) 15:03:00 [facility] COVID-19 Vaccine COVID-19 Vaccine 2020-11-30 Completed [facility] (Karl) (Karl) 15:03:00 [facility] COVID-19 Vaccine COVID-19 Vaccine 2020-11-30 Completed [facility] (Karl) (Karl) 15:03:00 [facility] COVID-19 Vaccine COVID-19 Vaccine 2020-11-30 Completed [facility] (Karl) (Karl) 15:03:00 [facility] COVID-19 Vaccine COVID-19 Vaccine 2020-11-30 Completed [facility] (Karl) (Karl) 15:03:00 [facility] COVID-19 Vaccine COVID-19 Vaccine 2020-11-30 Completed [facility] (Karl) (Karl) 15:03:00 [facility] COVID-19 Vaccine COVID-19 Vaccine 2020-11-30 Completed [facility] (Karl) (Karl) 15:03:00 [facility] COVID-19 Vaccine COVID-19 Vaccine 2020-11-30 Completed [facility] (Karl) (Karl) 15:03:00 [facility] COVID-19 Vaccine COVID-19 Vaccine 2020-11-30 Completed [facility] (Karl) (Karl) 15:03:00 [facility] COVID-19 Vaccine COVID-19 Vaccine 2020-11-30 Completed [facility] (Karl) (Karl) 15:03:00 [facility] COVID-19 Vaccine COVID-19 Vaccine 2020-11-30 Completed [facility] (Karl) (Karl) 15:03:00 [facility] COVID-19 Vaccine COVID-19 Vaccine 2020-11-30 Completed [facility] (Karl) (Karl) 15:03:00 [facility] COVID-19 Vaccine COVID-19 Vaccine 2020-11-30 Completed [facility] (Karl) (Karl) 15:03:00 [facility] COVID-19 Vaccine COVID-19 Vaccine 2020-11-30 Completed [facility] (Karl) (Karl) 15:03:00 [facility] Karl SARS-CoV-2 2020-11-30 Completed Un[facility] of Vaccination 00:00:00 [facility] Karl SARS-CoV-2 2020-11-30 Completed [facility]iver [facility] of Vaccination 00:00:00 [facility] SARS-COV-2 COVID-19 2020-11-30 Completed Unive rsity of MODERNA VACCINE 00:00:00 [facility] ical Branch SARS-COV-2 COVID-19 2020-11-30 Completed Unive rsity of MODERNA 12+ YRS 00:00:00 [facility] ical VACCINE Branch SARS-COV-2 COVID-19 2020-11-30 Completed Unive rsity of MODERNA 12+ YRS 00:00:00 [facility] ica VACCINE Branch SARS-COV-2 COVID-19 2020-11-30 Completed [facility] rs[facility] of [facility] VACCINE 00:00:00 [facility] SARS-COV-2 COVID-19 2020-11-30 Completed Unive rsity of MODERNA VACCINE 00:00:00 [facility] SARS-COV-2 COVID-19 2020-11-30 Completed Unive rsity of MODERNA VACCINE 00:00:00 [facility] Afluria single dose Afluria single dose 2020-07-10 [facility]pleted [facility] 11:11:00 [facility] Afluria single dose Afluria single dose 2020-07-10 Completed [facility] 11:11:00 [facility] Afluria single dose Afluria single dose 2020-07-10 Completed [facility] 11:11:00 [facility] Afluria single dose Afluria single dose 2020-07-10 Completed [facility] 11:11:00 [facility] Afluria single dose Afluria single dose 2020-07-10 Completed [facility] 11:11:00 [facility] Afluria single dose Afluria single dose 2020-07-10 Completed [facility] 11:11:00 [facility] Afluria single dose Afluria single dose 2020-07-10 Completed [facility] 11:11:00 [facility] Afluria single dose Afluria single dose 2020-07-10 Completed [facility] 11:11:00 [facility] Afluria single dose Afluria single dose 2020-07-10 Completed [facility] 11:11:00 [facility] Afluria single dose Afluria single dose 2020-07-10 Completed [facility] 11:11:00 [facility] Afluria single dose Afluria single dose 2020-07-10 Completed [facility] 11:11:00 [facility] Afluria single dose Afluria single dose 2020-07-10 Completed [facility] 11:11:00 [facility] Afluria single dose Afluria single dose 2020-07-10 Completed [facility] 11:11:00 [facility] Afluria single dose Afluria single dose 2020-07-10 Completed [facility] 11:11:00 [facility] Afluria single dose Afluria single dose 2020-07-10 Completed [facility] 11:11:00 [facility] Afluria single dose Afluria single dose 2020-07-10 Completed [facility] 11:11:00 [facility] Afluria single dose Afluria single dose 2020-07-10 Completed [facility] 11:11:00 [facility] Afluria single dose Afluria single dose 2020-07-10 Completed [facility] 11:11:00 [facility] Afluria single dose Afluria single dose 2020-07-10 Completed [facility] 11:11:00 [facility] Afluria single dose Afluria single dose 2020-07-10 Completed [facility] 11:11:00 [facility] Afluria single dose Afluria single dose 2020-07-10 Completed [facility] 11:11:00 [facility] Afluria single dose Afluria single dose 2020-07-10 Completed [facility] 11:11:00 [facility] Influenza TIV (IM) 2020-07-10 Completed Univer sity of 00:00:00 [facility] Influenza, 2020-07-10 Completed [facility] of Quadrivalent 00:00:00 [facility] Influenza TIV (IM) 2020-07-10 Completed Univer sity of 00:00:00 [facility] Shingrix Shingrix 2019-02-07 Completed [facility] 15:03:00 [facility] Shingrix Shingrix 2019-02-07 Completed [facility] 15:03:00 [facility] Shingrix Shingrix 2019-02-07 Completed [facility] 15:03:00 [facility] Shingrix Shingrix 2019-02-07 Completed [facility] 15:03:00 [facility] Shingrix Shingrix 2019-02-07 Completed [facility] 15:03:00 [facility] Shingrix Shingrix 2019-02-07 Completed [facility] 15:03:00 [facility] Shingrix Shingrix 2019-02-07 Completed [facility] 15:03:00 [facility] Shingrix Shingrix 2019-02-07 Completed [facility] 15:03:00 [facility] Shingrix Shingrix 2019-02-07 Completed [facility] 15:03:00 [facility] Shingrix Shingrix 2019-02-07 Completed [facility] 15:03:00 [facility] Shingrix Shingrix 2019-02-07 Completed [facility] 15:03:00 [facility] Shingrix Shingrix 2019-02-07 Completed [facility] 15:03:00 [facility] Shingrix Shingrix 2019-02-07 Completed [facility] 15:03:00 [facility] Shingrix Shingrix 2019-02-07 Completed [facility] 15:03:00 [facility] Shingrix Shingrix 2019-02-07 Completed [facility] 15:03:00 [facility] Shingrix Shingrix 2019-02-07 Completed [facility] 15:03:00 [facility] Shingrix Shingrix 2019-02-07 Completed [facility] 15:03:00 [facility] Shingrix Shingrix 2019-02-07 Completed [facility] 15:03:00 [facility] Shingrix Shingrix 2019-02-07 Completed [facility] 15:03:00 [facility] Zoster Recombinant 2019-02-07 Completed Univer [facility]ity of 00:00:00 [facility] Zoster Recombinant 2019-02-07 Completed Univer sity of 00:00:00 [facility] Shingrix Shingrix 2018-11-08 Completed [facility] 15[facility]00:00 [facility] Shingrix Shingrix 2018-11-08 Completed [facility] 15:00:00 [facility] Shingrix Shingrix 2018-11-08 Completed [facility] 15:00:00 [facility] Shingrix Shingrix 2018-11-08 Completed [facility] 15:00:00 [facility] Shingrix Shingrix 2018-11-08 Completed [facility] 15:00:00 [facility] Shingrix Shingrix 2018-11-08 Completed [facility] 15:00:00 [facility] Shingrix Shingrix 2018-11-08 Completed [facility] 15:00:00 [facility] Shingrix Shingrix 2018-11-08 Completed [facility] 15:00:00 [facility] Shingrix Shingrix 2018-11-08 Completed [facility] 15:00:00 [facility] Shingrix Shingrix 2018-11-08 Completed [facility] 15:00:00 [facility] Shingrix Shingrix 2018-11-08 Completed [facility] 15:00:00 [facility] Shingrix Shingrix 2018-11-08 Completed [facility] 15:00:00 [facility] Shingrix Shingrix 2018-11-08 Completed [facility] 15:00:00 [facility] Shingrix Shingrix 2018-11-08 Completed [facility] 15:00:00 [facility] Shingrix Shingrix 2018-11-08 Completed [facility] 15:00:00 [facility] Shingrix Shingrix 2018-11-08 Completed [facility] 15:00:00 [facility] Shingrix Shingrix 2018-11-08 Completed [facility] 15:00:00 [facility] Shingrix Shingrix 2018-11-08 Completed [facility] 15:00:00 [facility] Shingrix Shingrix 2018-11-08 Completed [facility] 15:00:00 [facility] Zoster Recombinant 2018-11-08 Completed Un[facility]ity of 00:00:00 [facility] Zoster Recombinant 2018-11-08 Completed Univer sity of 00:00:00 [facility] Betamethasone Sodium Betamethasone Sodium 2018-09-06 Completed [facility] - Phosphate Phosphate 14:36:00 [facility] Betamethasone Sodium Betamethasone Sodium 2018-09-06 Completed [facility] Phosphate Phosphate 14:36:00 [facility] Betamethasone Sodium Betamethasone Sodium 2018-09-06 Completed [facility] Phosphate Phosphate 14:36:00 [facility] Betamethasone Sodium Betamethasone Sodium 2018-09-06 Completed [facility] - Phosphate Phosphate 14:36:00 [facility] Betamethasone Sodium Betamethasone Sodium 2018-09-06 Completed [facility] - Phosphate Phosphate 14:36:00 [facility] Betamethasone Sodium Betamethasone Sodium 2018-09-06 Completed [facility] - Phosphate Phosphate 14:36:00 [facility] Betamethasone Sodium Betamethasone Sodium 2018-09-06 Completed [facility] - Phosphate Phosphate 14:36:00 [facility] Bupivicaine Shelton Bupivicaine Shelton 2018-09-06 Completed [facility] - 14:35:00 [facility] Bupivicaine Shelton Bupivicaine Shelton 2018-09-06 Completed [facility] 14:35:00 [facility] Bupivicaine Shelton Bupivicaine Shelton 2018-09-06 Completed [facility] 14:35:00 [facility] Bupivicaine Shelton Bupivicaine Shelton 2018-09-06 Completed [facility] 14:35:00 [facility] Bupivicaine Shelton Bupivicaine Shelton 2018-09-06 Completed [facility] 14:35:00 [facility] Bupivicaine Shelton Bupivicaine Shelton 2018-09-06 Completed [facility] 14:35:00 [facility] Bupivicaine Shelton Bupivicaine Shelton 2018-09-06 Completed [facility] 14:35:00 [facility] Vital Signs Vital Name Observation Time Observation Value Comments Source height 2022-11-30 15:20:00 67.5 [in_i] [facility] weight 2022-11-30 15:20:00 255 [lb_av] [facility] temperature 2022-11-30 15:20:00 98 [degF] [facility] bmi 2022-11-30 15:20:00 39.34 kg/m2 [facility] blood pressure 2022-11-30 15:20:00 135 mm[Hg] [facility] systolic [facility] blood pressure 2022-11-30 15:20:00 72 mm[Hg] [facility] - diastolic [facility] height 2022-08-26 13:10:00 67.5 [in_i] [facility] weight 2022-08-26 13:10:00 254.0 [lb_av] [facility] temperature 2022-08-26 13:10:00 98.2 [degF] [facility] bmi 2022-08-26 13:10:00 39.19 kg/m2 [facility] oximetry 2022-08-26 13:10:00 97 % [facility] respiratory rate 2022-08-26 13:10:00 17 /min [facility] on [facility] blood pressure 2022-08-26 13:10:00 138 mm[Hg] [facility] systolic [facility] blood pressure 2022-08-26 13:10:00 72 mm[Hg] [facility] diastolic [facility] Systolic blood 2022-07-27 00:44:00 133 mm[Hg] [facility] of [facility] Diastolic blood 2022-07-27 00:44:00 80 mm[Hg] Unive rsity [facility] Heart rate 2022-07-27 00:44:00 56 /min [facility] Body temperature 2022-07-27 00:44:00 36.83 [facility] Res[facility] 2022-07-27 00:44:00 18 /min [facility] Body height 2022-07-27 00:44:00 172.7 cm [facility] Body weight 2022-07-27 00:44:00 117.482 kg [facility] BMI 2022-07-27 00:44:00 39.38 kg/m2 [facility] Oxygen saturation in 2022-07-27 00:44:00 97 /min [facility] blood by [facility] Pulse oximetry Branch height 2022-05-26 13:50:00 67.5 [in_i] [facility] weight 2022-05-26 13:50:00 262 [lb_av] [facility] temperature 2022-05-26 13:50:00 97.6 [degF] [facility] bmi 2022-05-26 13:50:00 40.42 kg/m2 [facility] oximetry 2022-05-26 13:50:00 95 % [facility] respiratory rate 2022-05-26 13:50:00 16 /min [facility] blood pressure 2022-05-26 13:50:00 138 mm[Hg] [facility] - systolic [facility] blood pressure 2022-05-26 13:50:00 81 mm[Hg] [facility] diastolic [facility] height 2022-05-26 14:00:00 67.5 [in_i] [facility] weight 2022-05-26 14:00:00 262 [lb_av] [facility] temperature 2022-05-26 14:00:00 97.6 [degF] [facility] bmi 2022-05-26 14:00:00 40.42 kg/m2 [facility] oximetry 2022-05-26 14:00:00 95 % [facility] respiratory rate 2022-05-26 14:00:00 16 /min [facility] blood pressure 2022-05-26 14:00:00 138 mm[Hg] [facility] blood pressure 2022-05-26 14:00:00 81 mm[Hg] [facility] diastolic [facility] height 2022-03-13 12:00:00 68 [in_i] [facility] weight 2022-03-13 12:00:00 260 [lb_av] [facility] temperature 2022-03-13 12:00:00 97.6 [degF] [facility] bmi 2022-03-13 12:00:00 39.53 kg/m2 [facility] oximetry 2022-03-13 12:00:00 99 % [facility] respiratory rate 2022-03-13 12:00:00 16 /min [facility] on [facility] blood pressure 2022-03-13 12:00:00 140 mm[Hg] [facility] blood pressure 2022-03-13 12:00:00 94 mm[Hg] [facility] height 2022-02-18 14:30:00 68 [in_i] [facility] weight 2022-02-18 14:30:00 260.1 [lb_av] [facility] temperature 2022-02-18 14:30:00 97.9 [degF] [facility] bmi 2022-02-18 14:30:00 39.54 kg/m2 [facility] oximetry 2022-02-18 14:30:00 97 % [facility] respiratory rate 2022-02-18 14:30:00 17 /min [facility] blood pressure 2022-02-18 14:30:00 121 mm[Hg] [facility] blood pressure 2022-02-18 14:30:00 64 mm[Hg] [facility] height 2021-11-18 14:20:00 68 [in_i] [facility] weight 2021-11-18 14:20:00 260.6 [lb_av] [facility] temperature 2021-11-18 14:20:00 98.4 [degF] [facility] bmi 2021-11-18 14:20:00 39.62 kg/m2 [facility] oximetry 2021-11-18 14:20:00 98 % [facility] respiratory rate 2021-11-18 14:20:00 18 /min [facility] blood pressure 2021-11-18 14:20:00 135 mm[Hg] [facility] systolic [facility] blood pressure 2021-11-18 14:20:00 74 mm[Hg] [facility] diastolic [facility] height 2021-09-30 13:20:00 68 [in_i] [facility] weight 2021-09-30 13:20:00 260.1 [lb_av] Common [facility] temperature 2021-09-30 13:20:00 97.5 [degF] [facility] bmi 2021-09-30 13:20:00 39.54 kg/m2 [facility] oximetry 2021-09-30 13:20:00 96 % [facility] respiratory rate 2021-09-30 13:20:00 17 /min [facility] blood pressure 2021-09-30 13:20:00 139 mm[Hg] [facility] blood pressure 2021-09-30 13:20:00 78 mm[Hg] [facility] diastolic [facility] height 2021-08-12 13:30:00 68 [in_i] [facility] weight 2021-08-12 13:30:00 261.7 [lb_av] [facility] temperature 2021-08-12 13:30:00 97.2 [degF] [facility] bmi 2021-08-12 13:30:00 39.79 kg/m2 [facility] oximetry 2021-08-12 13:30:00 99 % [facility] respiratory rate 2021-08-12 13:30:00 19 /min [facility] blood pressure 2021-08-12 13:30:00 137 mm[Hg] [facility] blood pressure 2021-08-12 13:30:00 64 mm[Hg] [facility] diastolic [facility] height 2021-06-24 14:00:00 68 [in_i] [facility] weight 2021-06-24 14:00:00 259.0 [lb_av] [facility] temperature 2021-06-24 14:00:00 97.1 [degF] [facility]-24 14:00:00 39.38 kg/m2 [facility] oximetry 2021-06-24 14:00:00 98 % [facility] respiratory rate 2021-06-24 14:00:00 18 /min [facility] blood pressure 2021-06-24 14:00:00 122 mm[Hg] [facility] blood pressure 2021-06-24 14:00:00 80 mm[Hg] [facility] height 2021-06-24 14:00:00 68 [in_i] [facility] weight 2021-06-24 14:00:00 259.0 [lb_av] [facility] temperature 2021-06-24 14:00:00 97.1 [degF] [facility] bmi 2021-06-24 14:00:00 39.38 kg/m2 [facility] oximetry 2021-06-24 14:00:00 98 % [facility] respiratory rate 2021-06-24 14:00:00 18 /min [facility] blood pressure 2021-06-24 14:00:00 122 mm[Hg] [facility] systolic [facility] blood pressure 2021-06-24 14:00:00 80 mm[Hg] [facility] height 2021-06-19 14:20:00 68 [in_i] [facility] weight 2021-06-19 14:20:00 263 [lb_av] [facility] temperature 2021-06-19 14:20:00 98.7 [degF] [facility] bmi 2021-06-19 14:20:00 39.98 kg/m2 [facility] oximetry 2021-06-19 14:20:00 94 % [facility] blood pressure 2021-06-19 14:20:00 135 mm[Hg] [facility] systolic [facility] blood pressure 2021-06-19 14:20:00 63 mm[Hg] [facility] diastolic [facility] height 2021-06-13 11:50:00 68 [in_i] [facility] weight 2021-06-13 11:50:00 263 [lb_av] [facility] temperature 2021-06-13 11:50:00 97 [degF] [facility] bmi 2021-06-13 11:50:00 39.98 kg/m2 [facility] blood pressure 2021-06-13 11:50:00 137 mm[Hg] [facility] systolic [facility] blood pressure 2021-06-13 11:50:00 70 mm[Hg] [facility] diastolic [facility] Systolic blood 2022-12-29 15:31:16 131 mm[Hg] Univer sity of pressure [facility] Diastolic blood 2022-12-29 15:31:16 75 mm[Hg] Unive rsity of pressure [facility] on [facility] Heart rate 2022-12-29 15:31:16 67 /min [facility] Respiratory rate 2022-12-29 15:31:16 18 /min Univ ersity of [facility] on [facility] Body height 2022-12-29 15:18:00 172 cm [facility] Body weight 2022-12-29 15:18:00 115.8 kg [facility] BMI 2022-12-29 15:18:00 39.14 kg/m2 [facility] Body weight 2021-11-07 19:17:00 118.1 kg Universi ty [facility] MD [facility] BMI 2021-11-07 19:17:00 39.92 kg/m2 Universi ty [facility] Systolic blood 2021-10-31 13:50:08 147 mm[Hg] Univer sity of pressure [place] [facility] Diastolic blood 2021-10-31 13:50:08 80 mm[Hg] Unive rsity of pressure [place] [facility] Heart rate 2021-10-31 13:50:08 65 /min Universi ty [facility] Respiratory rate 2021-10-31 13:50:08 18 /min Univ ersity [facility] Body height 2021-10-31 13:50:08 172 cm Universi ty [facility] MD [facility] Procedures Procedure Date / Time Performed Performing Clinician Sour e MAMMO DIGITAL 2022-12-29 16:15:07 Amina Hernandez [place] [facility] SCREENING BILATERAL W [facility] POCT SARS-COV-2 2022-07-27 00:52:00 [place] [facility] ANTIGEN (BINAX NOW) Medical Bran ch MRI BREAST BILATERAL W 2021-11-07 21:42:00 Amina Hernandez [facility] WO CONTRAST INCL CAD [facility] [place] US BREAST COMPLETE 2021-10-31 19:37:00 [facility] [place] [facility] Center MAMMO DIGITAL 2021-10-31 17:42:37 Amina Hernandez [place] [facility] DIAGNOSTIC BILATERAL W [facility] OSI MAMMO BILATERAL 2021-08-18 20:05:00 Luis Felipe Cates [facility] ASSIGNMENT OF BENEFITS 2021-07-30 20:12:03 Doctor Unassigned, No [facility] Name Medical Branch Plan of Care Planned Activity Planned Date Details Comments Source Future Scheduled 2023-03-19 COVID-[address] [facility] 11:54:11 (5 - Moderna series) MD Rolando blanco [facility] [code = COVID-19 Center Vaccination (5 - Moderna series)] Encounters Start End Encounter Admission Attending Care Care Encounter Source Date/Time Date/Time Type Type Clinicians Facility Department ID 2022-11-30 Outpatient Cates, STLMLC STLMLC Common 15:07:01 Luis Felipe [id number] [facility] 2022-11-26 Outpatient Cates, STLMLC STLMLC Common 10:23:00 Luis Felipe [id number] [facility] 2022-08-24 Outpatient Cates, STLMLC STLMLC Common 15:23:00 Luis Felipe [facility] 2021-11-19 Outpatient Cates, STLMLC STLMLC Common 14:40:14 Luis Felipe [facility] 2021-11-19 Outpatient Cates, STLMLC STLMLC Common 13:44:30 Luis Felipe [id number] [facility] 2021-11-19 Outpatient Cates, STLMLC STLMLC Common 13:41:01 Luis Felipe [id number] [facility] 2021-11-19 Outpatient Cates, STLMLC STLMLC Common 12:33:39 Luis Felipe 11171 [facility] 2021-11-19 Outpatient Cates, STLMLC STLMLC Common 12:30:57 Luis Felipe 10770 [facility] 2021-11-19 Outpatient Cates, STLMLC STLMLC Common 12:04:00 Luis Felipe 68422 [facility] 2021-11-19 Outpatient Cates, STLMLC STLMLC Common 11:21:45 Luis Felipe 93398 [facility] 2021-11-19 Outpatient STLMLC STLMLC Common 11:16:04 [id number] [facility] 2021-11-19 Outpatient STLMLC STLMLC Common 11:03:21 [id number] [facility] 2021-11-19 Outpatient STLMLC STLMLC [id number] Common 11:02:50 [id number] [facility] 2021-10-28 Outpatient SYSTEM, FELISHA BAEZA [id number] 10:24:27 PROVIDER Marlon fleming 2022-12-29 2022-12-29 Ancillary Natalyjose ramon, 1.2.840.1 [id number] Univers 11:25:00 12:00:00 Procedure Amina Y 85123.1.1 it y of 3.412.2.7 [place] .3.449315 .8 [facility] 2022-12-29 2022-12-29 Outpatient ANA MARIA HERNANDEZ MDA MDA [id number] 09:53:25 09:53:25 AMINA fleming 2022-12-29 2022-12-29 Outpatient ANA MARIA HERNANDEZ MDA MDA [id number] 09:09:11 09:52:35 AMINAMARY fleming 2022-12-29 2022-12-29 Office Remingtonnaveenjose ramon, 1.2.840.1 [id number] [facility] 09:00:00 09:52:35 Visit Amina Glass 86913.1.1 ity of 3.412.2.7 [place] .3.738890 MD Hoffman8 [facility] 2022-12-29 2022-12-29 Travel 1.2.840.1 1.2.055.750 [id number] Univers 00:00:00 00:00:00 68250.1.1 350.1.13.41 ity of 3.412.2.7 [place].698 [place]200[place] 084.8 MD Hoffman8 [facility] 2022-11-30 2022-11-30 OFFICE STLMLC STLMLC [id number] Co mmon 00:00:00 00:00:00 VISIT Spirit ESTAB PT - CHI LEVEL 4 [facility] 2022-08-26 2022-08-26 OFFICE STLMLC STLMLC [id number] Co mmon 00:00:00 00:00:00 VISIT Spirit ESTAB PT - CHI LEVEL 4 [facility] 2022-08-17 2022-08-17 (TEL) STLMLC STLMLC [id number] Co mmon 00:00:00 00:00:00 Spirit - CHI [facility] 2022-07-27 2022-07-27 Letter RACIEL Pace 1.2.840.114 [id number] Univers 00:00:00 00:00:00 (Out) Debra ZALDIVRA 350.1.13.10 it y of [facility] 4.2.7.2.686 Aime as [phone] [address] 2022-07-26 2022-07-26 [facility] 1.2.840. 114 [id number] Univers 20:00:00 20:20:00 Care [facility] 350.1.13.10 ity [facility] 4.2.7.2.686 Aime as DENNIS?BLEA [phone] [address] MEDICAL OFFICE BUILDING 2022-07-26 2022-07-26 [facility] [id number] Univers 20:00:00 20:15:31 [facility] 2022-05-26 2022-05-26 OFFICE STLMLC STLMLC [id number] Co mmon 00:00:00 00:00:00 VISIT Spirit ESTAB PT - CHI LEVEL 4 [facility] 2022-05-26 2022-05-26 SUB ANNUAL STLMLC STLMLC [id number] Common 00:00:00 00:00:00 MCR Spirit WELLNESS - CHI VISIT [facility] 2022-03-13 2022-03-13 OFFICE STLMLC STLMLC [id number] Co mmon 00:00:00 00:00:00 VISIT EST Spir it PT LEVEL 3 - CHI [facility] 2022-02-18 2022-02-18 OFFICE STLMLC STLMLC [id number] Co mmon 00:00:00 00:00:00 VISIT Spirit ESTAB PT - CHI LEVEL 4 [facility] 2022-01-30 2022-01-30 (TEL) STLMLC STLMLC [id number] Co mmon 00:00:00 00:00:00 Spirit - CHI [facility] 2022-01-12 2022-01-12 (TEL) STLMLC STLMLC [id number] Co mmon 00:00:00 00:00:00 Spirit - CHI [facility] 2021-11-18 2021-11-18 OFFICE STLMLC STLMLC [id number] Co mmon 00:00:00 00:00:00 VISIT Spirit [facility] PT - CHI LEVEL 4 [facility] 2021-11-11 2021-11-11 Telephone Edilson, 1.2.840.1 [id number] Univers 00:00:00 00:00:00 Amina Y 05365.1.1 ity of 3.412.2.7 [place] .3.727357 MD Hoffman8 [facility] 2021-11-11 2021-11-11 Orders Edilson, 1.2.840.1 [id number] Univers 00:00:00 00:00:00 Only Amina Y 28021.1.1 ity of 3.412.2.7 [place] .3.811436 MD Griffiths [facility] 2021-11-07 2021-11-07 Ancillary ANA MARIA Hernandez, 1.2.840.1 [id number] Univers 13:15:00 15:00:00 Procedure Amina Y 05467.1.1 it y of 3.412.2.7 [place] .3.900763 MD Griffiths [facility] 2021-11-07 2021-11-07 Travel 1.2.840.1 1.2.340.079 [id number] Univers 00:00:00 00:00:00 68917.1.1 350.1.13.41 ity of 3.412.2.7 [place].3.698 [place] .3.256546 084.8 MD Griffiths [facility] 2021-10-31 2021-10-31 Hospital ANA MARIA Hernandez, 1.2.840.1 [id number] Univers 11:15:00 23:59:00 Encounter Amina Y 48537.1.1 it y of 3.412.2.7 [place] .3.857856 MD Griffiths [facility] 2021-10-31 2021-10-31 Clinical ANA MARIA Hernandez, 1.2.840.1 [id number] Univers 13:20:00 14:53:15 Support Amina Y 28852.1.1 ity of 3.412.2.7 [place] .3.355045 MD Hoffman8 [facility] 2021-10-31 2021-10-31 [facility] ANA MARIA Hernandez, 1.2.840.1 [id number] Univers 09:12:38 11:14:00 Encounter Amina Y 88534.1.1 it y of 3.412.2.7 [place] .3.160304 MD Griffiths [facility] 2021-10-31 2021-10-31 [facility] Edilson, 1.2.840.1 [id number] Univers 08:40:00 09:10:17 Visit Amina Y 89888.1.1 ity of 3.412.2.7 [place] .3Dalton143015 MD Griffiths [facility] 2021-10-31 2021-10-31 [facility] 1.2.840.1 [id number] Univers 07:30:00 07:39:06 97303.1.1 ity of 3.412.2.7 [place] .3Dalton061215 MD Griffiths [facility] 2021-10-31 2021-10-31 Travel 1.2.840.1 1.2.201.970 [id number] Univers 00:00:00 00:00:00 53592.1.1 350.1.13.41 ity of 3.412.2.7 [place].3.698 [place] .3.876112 084.8 MD Griffiths [facility] 2021-10-28 2021-10-28 Travel 1.2.840.1 1.2.096.427 [id number] Univers 00:00:00 00:00:00 02426.1.1 350.1.13.41 ity of 3.412.2.7 [place].3.698 [place] .3.687733 084.8 MD Hoffman8 [facility] 2021-10-06 2021-10-06 (TEL) [facility] [id number] Co mmon 00:00:00 00:00:00 [facility] 2021-09-30 2021-09-30 OFFICE [facility] [id number] Co mmon 00:00:00 00:00:00 VISIT [facility] LEVEL 4 [facility] 2021-09-30 2021-09-30 Junaid Hernandez, 1.2.840.1 [id number] Univers 00:00:00 00:00:00 Only Amina Y 57012.1.1 ity of 3.412.2.7 [place] .3.329642 MD Griffiths [facility] 2021-09-25 2021-09-25 (TEL) [facility] [id number] Co mmon 00:00:00 00:00:00 [facility] 2021-09-24 2021-09-24 Ancillary EL 1.2.840.1 [id number] Univers 20:15:00 20:20:00 Procedure 51495.1.1 it y of 3.412.2.7 [place] .3.756043 MD Griffiths [facility] 2021-09-24 2021-09-24 Ancillary EL 1.2.840.1 [id number] [id number] Univers 20:10:00 20:15:00 Procedure 65843.1.1 it y of 3.412.2.7 [place] .3.625157 MD Griffiths [facility] 2021-09-24 2021-09-24 Ancillary EL 1.2.840.1 [id number] Univers 20:05:00 20:10:00 Procedure 47721.1.1 it y of 3.412.2.7 [place] .3.234658 MD Griffiths [facility] 2021-09-24 2021-09-24 Ancillary EL 1.2.840.1 [id number] [id number] Univers 20:00:00 20:05:00 Procedure 88433.1.1 it y of 3.412.2.7 [place] .3.445896 MD Griffiths [facility] 2021-09-24 2021-09-24 (TEL) STLMLC STLMLC [id number] Co mmon 00:00:00 00:00:00 [facility] 2021-09-12 2021-09-12 (TEL) STLMLC STLMLC [id number] Co mmon 00:00:00 00:00:00 [facility] 2021-08-12 2021-08-12 OFFICE STLMLC STLMLC [id number] Co mmon 00:00:00 00:00:00 VISIT [facility] LEVEL 4 [facility] 2021-07-30 2021-07-30 [facility] 1.2.047.728 [id number] Univers 15:14:42 23:59:00 Encounter Agus Camarena 350.1.13.10 ity [facility] 4.2.7.2.686 [facility] [id number] [facility] [address] 2021-07-30 2021-07-30 Outpatient R [facility] [id number] Univers 00:00:00 00:00:00 AGUS judd of [facility] 2021-07-30 2021-07-30 Orders Doctor SCHRADER 1.2.840.114 [id number] Univers 00:00:00 00:00:00 Only Unassigned, ZEN 350.1.13.10 ity of [place] [facility] 4.2.7.2.686 [facility] [place] [id number] [facility] [address] 2021-07-03 2021-07-03 (TEL) STLMLC STLMLC [id number] Co mmon 00:00:00 00:00:00 [facility] 2021-06-24 2021-06-24 OFFICE STLMLC STLMLC [id number] Co mmon 00:00:00 00:00:00 VISIT Spirit ESTAB PT - CHI LEVEL 4 [facility] 2021-06-24 2021-06-24 SUB ANNUAL STLMLC STLMLC [id number] Common 00:00:00 00:00:00 MCR Spirit WELLNESS - CHI VISIT [facility] 2021-06-19 2021-06-19 OFFICE STLMLC STLMLC [id number] Co mmon 00:00:00 00:00:00 VISIT EST Spir it PT LEVEL 3 - CHI [facility] 2021-06-18 2021-06-18 Telephone RACIEL Mcclain 1.2.180.686 [id number] Univers 00:00:00 00:00:00 Keyla ZALDIVAR 350.1.13.10 i [facility] 4.2.7.2.686 Aime as [id number] [address] 2021-06-16 2021-06-16 Outpatient Guillermo GREGORY [facility] [id number] Univers 18:00:00 18:00:00 EDGARD borja [facility] 2021-06-13 2021-06-13 (TEL) STLMLC STLMLC [id number] Co mmon 00:00:00 00:00:00 [facility] 2021-06-13 2021-06-13 OFFICE STLMLC STLMLC [id number] Co mmon 00:00:00 00:00:00 VISIT EST Spir it PT LEVEL 3 - CHI [facility] 2021-05-19 2021-05-19 Outpatient STLMLC STLMLC [id number] Common 00:00:00 00:00:00 [facility] 2020-12-28 2020-12-28 Outpatient [facility] [id number] Univers 14:00:00 14:00:00 dutch [facility] 2020-12-19 2020-12-19 Outpatient STLMLC STLMLC [id number] Common 00:00:00 00:00:00 [facility] 2020-12-09 2020-12-09 Outpatient STLMLC STLMLC [id number] Common 00:00:00 00:00:00 [facility] 2020-11-30 2020-11-30 Outpatient [facility] [id number] Univers 14:30:00 14:30:00 [facility] 2020-11-29 2020-11-29 Outpatient STLMLC STLMLC [id number] Common 00:00:00 00:00:00 [facility] 2020-09-09 2020-09-09 Outpatient STLMLC STLMLC [id number] Common 00:00:00 00:00:00 [facility] 2020-08-20 2020-08-20 Outpatient STLMLC STLMLC [id number] Common 00:00:00 00:00:00 [facility] 2020-08-20 2020-08-20 Outpatient STLMLC STLMLC [id number] Common 00:00:00 00:00:00 [facility] 2020-08-15 2020-08-15 Outpatient STLMLC STLMLC [id number] Common 00:00:00 00:00:00 [facility] 2020-07-24 2020-07-24 Outpatient STLMLC STLMLC [id number] Common 00:00:00 00:00:00 [facility] 2020-07-22 2020-07-22 Outpatient STLMLC STLMLC [id number] Common 00:00:00 00:00:00 [facility] 2020-06-10 2020-06-10 [facility] [id number] Common 11:30:00 11:30:[address] [facility] 2020-03-08 2020-03-08 [facility] [id number] Common 11:15:00 11:15:[address] [facility] 2020-03-08 2020-03-08 [facility] [id number] Common 11:15:00 11:15:[address] [facility] 2020-01-19 2020-01-19 [facility] [id number] Common 08:19:00 08:19:[address] [facility] 2020-01-18 2020-01-18 [facility] [id number] Common 16:35:00 16:35:[address] [facility] 2020-01-01 2020-01-01 [facility] [id number] Common 13:30:00 13:30:[address] [facility] 2019-11-24 2019-11-24 [facility] [id number] Common 10:22:00 10:22:00 t [facility] 2019-11-23 2019-11-23 [facility] [id number] Common 11:40:00 11:40:00 t [facility] Sp[facility] - [facility] 2019-11-16 2019-11-16 [facility] [id number] Common 14:30:00 14:30:00 t [facility] Bone [facility] Sp[facility] t and Joint [facility] - [facility] 2018-11-16 2018-11-16 [facility] [id number] Common 14:30:00 14:30:00 t [facility] Bone [facility] Spiri t and Joint [facility] - [facility] 2018-10-05 2018-10-05 [facility] [id number] Common 15:30:00 15:30:00 t Bone Bone and Spiri t and Joint [facility] - [facility] 2018-07-28 2018-07-28 [facility] [id number] Common 14:00:00 14:00:00 t [facility] Bone [facility] Spiri t and Joint [facility] - [facility] 2018-06-30 2018-06-30 [facility] [id number] Common 14:00:00 14:00:00 t [facility] Bone and Spiri t and Joint [facility] - [facility] Results Test Description Test Time Test Comments Results Result Comments Source POCT SARS-COV-2 ANTIGEN (BINAX NOW) 2022-07-27 00:52:00 Test Item Value Reference Range Interpretation Comme nts POCT SARS-COV-2 ANTIGEN (test code Not Detected Not Detected = 5076) On board controls acceptable with Yes C Line (test code = 3574) RAFAELA (test code = RAFAELA) accurate development and interpretation of all internal controls Lab Interpretation (test code = Normal 23318-6) [facility] Bilateral with [id number] 19:47:52 Test Item Value Reference Range Interpretation Comments Radiology Study observation (narrative) (test code = 89705-4) IMP (test code = IMP) 1: Area [...] 0:Incomplete: Needs Additional Imaging Evaluation Lab Interpretation Abnormal (test code = 40459-9) [facility] [place] [facility] [place] [id number] 13:10:00 Test Item Value Reference Range Interpretation Comments IMMUNOGLOBULIN E (test 90 IU/mL 6-495 Perfo rmed At: BN code = IGE) [facility] [address] [place], [place] [id number] ra Sarah RUBIO Ph:[phone] - XR [id number] 12:16:00 Name: MATTHEW HAYES [place] : 1950 Age/S: 69 / F [address] Unit #: [id number] Loc: [place] [address] Phys: Agus Childs MD Acct: [id number] Dis Date: Status: REG CLI PHONE #: [phone] Exam Date: 08/14/2019 1047 FAX #: Reason: J45.998 EXAMS: CPT: [id number] XR ESOPHAGUS 28550 Fluoro Time: 234 DAP (Gy m2): Air Kerma (mGy): 34.30 EXAMINATION: - XR ESOPHAGUS. LOCATION: S17. HISTORY: J45.998, asthma, occasional difficulty with food. COMPARISON: None. TECHNIQUE: Single and double contrast upper GI was performed with barium oral contrast and overhead spot films were obtained. Fluoroscopic time: 234 seconds. 34.30 mGy. FINDINGS: Pipe Setter image of the chest appears unremarkable with [...] the hypopharynx. 13 mm barium pill flowed smo othly into the stomach. IMPRESSION: Contrast residual noted in hypopharynx. Tertiary contractions involving distal esophagus. Possible small hiatal hernia. at 1216 Reported and signed by: Tanisha Fischer M.D. CC: Robson Childs MD; Sagar Shelley MD PAGE 1 Signed Report Name: MATTHEW HAYES [place] : 1950 Age/S: 69 / F [id number] Unit #: [id number] Loc: [place] [address] Phys: Agus Childs MD Acct: [id number] Dis Date: Status: REG CLI PHONE #: [phone] Exam Date: 08/14/2019 1047 FAX #: Reason: J45.998 EXAMS: CPT: [id number] XR ESOPHAGUS 92447 Fluoro Time: 234 DAP (Gy m2): Air Kerma (mGy): 34.30 (Continued) Technologist: Any Charles RT(R) Trnscb Date/Time: 08/14/2019 (1216) [email or web address] Orig Print D/T: S: 08/14/2019 (1220) PAGE 2 Signed Report- XR CHEST 2 [id number] 11:13:00 Name: MATTHEW HAYES [place] : 1950 Age/S: 69 / F [address] Unit #: [id number] Loc: [place] [address] Phys: Agus Childs MD Acct: [id number] Dis Date: Status: REG CLI PHONE #: [phone] Exam Date: 08/14/2019 1038 FAX #: Reason: J45.998 EXAMS: CPT: [id number] XR CHEST 2 V 80188 Fluoro Time: DAP (Gy m2): Air Kerma (mGy): EXAMINATION: - XR CHEST 2 V. LOCATION: S17. HISTORY: J45.998. COMPARISON: None. FINDINGS: Examination limited due to patient body habitus. Cardiac silhouette/Mediastinal contour: Within normal limits. Atherosclerotic calcification of aortic arch. Lungs: No focal consolidation. No pleural effusion. Biapical thickening/scarring. Osseous Structures: Degenerative changes of thoracic spine. Additional Findings: Postoperative clips project over right upper abdomen. IMPRESSION: No focal consolidation. at 1113 Reported and signed by: Tanisha Fischer M.D. CC: Agus Childs MD; Sagar Shelley MD PAGE 1 Signed Report Name: MATTHEW HAYES [place] : 1950 Age/S: 69 / F [address] Unit #: [id number] Loc: [place] [address] Phys: Robson Childs MD Acct: [id number] Dis Date: Status: REG CLI PHONE #: [phone] Exam Date: 08/14/2019 1038 FAX #: Reason: J45.998 EXAMS: CPT: [id number] XR CHEST 2 V 54972 Fluoro Time: DAP (Gy m2): Air Kerma (mGy): (Continued) Technologist: Any Charles, RT(R) Trnscb Date/Time: 08/14/2019 (1113) [email or web address] Orig Print D/T: S: 08/14/2019 (1117) PAGE 2 Signed ReportCBC W/AUTO [id number] 10:25:00 Test Item Value Reference Range Interpretation [...]
[2023-03-19] MEDS ORDERED: ACETAMINOPHEN 325 MG TABLET ONE (16:37)
--- NOTE | 2023-03-19 17:21 | RAD REPORT ---
EXAM DESCRIPTION: RADRibs Bilateral W/Chest03/19/2023 5:01 pm CLINICAL HISTORY: PAIN COMPARISON: Chest Pa And Lat (2 Views) dated 05/13/2016 TECHNIQUE: PA views of the chest. Three views of the right and three views of the left ribs. FINDINGS: Mild patchy bibasilar airspace opacities with interstitial prominence more pronounced than on the prior exam. Trace right pleural effusion. No pneumothorax or effusion. The cardiomediastinal contours are unremarkable. No acute displaced fractures of the included ribs. No suspicious osseous lesions. Right upper quadrant surgical clips suggesting prior cholecystectomy. IMPRESSION: Mild patchy bibasilar airspace opacities and interstitial central prominence may reflect early edema. Superimposed pneumonia would be difficult to exclude. No evidence acute displaced rib fractures bilaterally.
[2023-03-19] MEDS ORDERED: FENTANYL CITR 100 MCG/2 ML ONE ×2 (17:58→21:16)
[2023-03-19 18:03] LABS: Absolute Lymphocytes (CBC) 1.8 K/uL (0.7-4.9); Hematocrit 42.8 % (36.0-45.0); Lymphocytes % 24.7 % (15.3-44.8); MCV 88.1 fL (80-100); MPV 7.6 fL (7.6-11.3); RBC Red Blood Cell Count 4.86 M/uL (3.86-4.86)
--- NOTE | 2023-03-19 19:50 | RAD REPORT ---
EXAM DESCRIPTION: CT - Chest Abdomen Pelvis W Cont - 03/19/2023 7:16 pm CLINICAL HISTORY: fall COMPARISON: Ribs Bilateral W/Chest dated 03/19/2023; BREAST/AXILLA, COMPLETE dated 09/24/2021 TECHNIQUE: Thin axial CT images of the chest, abdomen and pelvis, performed following intravenous ad ministration of 100 mL Isovue-300. Multiplanar reformats were generated and reviewed. All CT scans are performed using dose optimization technique as appropriate and may include automated exposure control or mA/KV adjustment according to patient size. FINDINGS: Bulky appearance of the thyroid gland with multiple heterogeneous hypoattenuating nodules the largest at the left lower pole measuring 3.3 x 3.1 centimeter. The lungs are clear.No pleural or pericardial effusion.No intrathoracic adenopathy. The liver, spleen, pancreas, adrenal glands and kidneys are within normal limits. Incidentally noted benign-appearing renal cortical cysts, the largest measuring 2.5 centimeter at the right superior steven e. Status post cholecystectomy. No bowel obstruction, free air, free fluid or abscess. Normal appendix. No pathologic lymphadenopath y in the abdomen or pelvis. Mildly buckled anterior bilateral fifth, sixth, and seventh rib fractures. No other worrisome osseous finding. IMPRESSION: Mildly buckled anterior bilateral fifth, sixth, and seventh rib fractures. No other evidence of acute traumatic injury in the chest, abdomen, or pelvis. Incidental findings as above, including bilateral thyroid nodules, which can be further evaluated on dedicated palpation thyroid ultrasound, if clinically indicated.
--- NOTE | 2023-03-19 20:39 | ER ---
Nurse's Notes [facility] Name: Rachel Oconnor Age: 73 yrs Sex: Female : 1950 Arrival Date: 03/19/2023 Time: 15:56 Bed 14 Private MD: Diagnosis: Multiple fractures of ribs, bilateral, initial encounter for closed fracture Presentation: 03/19 16:20 Chief complaint: Patient states: MECHANICAL FALL AT [employer]FUCIAN[employer], NO LOC. Coronavirus screen: bp At this time, the client does not indicate any symptoms associated with coronavirus-19. Ebola Screen: No symptoms or risks identified at this time. Initial Sepsis Screen: Does the patient meet any 2 criteria? No. Patient's initial sepsis screen is negative. Does the patient have a suspected source of infection? No. Patient's initial sepsis screen is negative. Risk Assessment: Do you want to hurt yourself or someone else? Patient reports no desire to harm self or others. Onset of symptoms was March 19, 2023. 16:20 Method Of Arrival: Ambulatory bp 16:20 Acuity: PHIL 3 bp Historical: - Allergies: 16:34 Clindamycin; mb9 16:34 COFFEE; mb9 16:34 Ibuprofen; mb9 16:34 Kiwi (Actinidia Chinensis); mb9 16:34 PENICILLINS; mb9 16:34 relafen; mb9 16:34 shrimp; mb9 16:34 Soy; mb9 - PMHx: 16:34 Anxiety; Back pain; Thyroid problem; Hypertension; High Cholesterol; GERD; mb9 - PSHx: 16:34 None; mb9 - Immunization history:: Adult Immunizations up to date. - Social history:: Smoking status: Patient denies any tobacco usage or history of. Screenin:36 [facility] ED Fall Risk Assessment (Adult) History of falling in the last 3 months, mb9 including since admission Yes- single mechanical fall (1 pt) Confusion or Disorientation No (0 pts) Intoxicated or Sedated No (0 pts) Impaired Gait No (0 pts) Mobility Assist Device Used No (0 pt) Altered Elimination Yes (1 pt) Score/Fall Risk Level 0 - 2 = Low Risk Oriented to surroundings, Maintained a safe environment, Educated pt \T\ family on fall prevention, incl call for assistance when getting out of bed. Abuse screen: Denies threats or abuse. Nutritional screening: No deficits noted. Tuberculosis screening: No symptoms or risk factors identified. Assessment: 16:35 General: Appears in no apparent distress. Pain: Complains of pain in chest Pain mb9 radiates to back. Neuro: Level of Consciousness is awake, alert, obeys commands, Oriented to person, place, time, situation, Appropriate for age. Cardiovascular: Heart tones S1 S2 present Rhythm is regular. Respiratory: Airway is patent Respiratory effort is even, unlabored, Respiratory pattern is regular, symmetrical. GI: No signs and/or symptoms were reported involving the gastrointestinal system. Abdomen is round non-distended. Derm: Skin is pink, warm \T\ dry. Musculoskeletal: Range of motion: intact in all extremities, Reports pain in back and chest. 18:27 Reassessment: Patient and/or family updated on plan of care and expected duration. Pain mb9 level reassessed. Patient is alert, oriented x 3, equal unlabored respirations, skin warm/dry/pink. Patient states feeling better. Patient states symptoms have improved. 21:24 Reassessment: No changes from previously documented assessment. Patient and/or family mb9 updated on plan of care and expected duration. Pain level reassessed. Patient is alert, oriented x 3, equal unlabored respirations, skin warm/dry/pink. Vital Signs: 16:20 BP 133 / 100; Pulse 84; Resp 16; Temp 97.7; Pulse Ox 95% ; bp 17:25 BP 130 / 70; Pulse 72; Resp 18; Pulse Ox 98% on R/A; mb9 17:45 BP 118 / 76; Pulse 68; Resp 18; Pulse Ox 96% ; db 19:00 BP 109 / 53; Pulse 74; Resp 16; Pulse Ox 99% on R/A; mb9 21:24 BP 120 / 84; Pulse 80; Resp 18; Pulse Ox 98% on R/A; mb9 ED Course: 16:05 Patient arrived in ED. ts1 16:08 Luis Fleming PA is PHCP. cp 16:08 Hector Ferguson MD is Attending Physician. cp 16:21 Triage completed. bp 16:27 Emma Arredondo RN is Primary Nurse. mb9 16:27 Arm band placed on. mb9 16:36 Placed in gown. Bed in low position. Call light in reach. Side rails up X 1. Client mb9 placed on continuous cardiac and pulse oximetry monitoring. NIBP monitoring applied. 16:36 No provider procedures requiring assistance completed. mb9 17:03 XRAY Ribs BILATERAL w/chest In Process Unspecified. EDMS 17:36 Radiology exam delayed due to lab results not completed at this time. (BUN/Creatinine) [id number] IV insertion attempt and/or patient not having appropriate IV at this time. 19:17 CT Chest, Abdomen, Pelvis - W/Contrast In Process Unspecified. EDMS 21:12 INCENTIVE SPIROMETRY Sent. mb9 21:25 IV discontinued, intact, bleeding controlled, No redness/swelling at site. Pressure mb9 dressing applied. Administered Medications: 16:34 Drug: Acetaminophen PO 650 mg Route: PO; mb9 17:26 Follow up: Response: No adverse reaction mb9 17:51 Drug: fentaNYL (PF) IVP 25 mcg Route: IVP; Site: right antecubital; db 21:12 Drug: fentaNYL (PF) IVP 25 mcg Route: IVP; Site: right forearm; mb9 21:25 Follow up: Response: No adverse reaction mb9 Medication: 16:36 VIS not applicable for this client. mb9 Outcome: 20:38 Discharge ordered by MD. cp 21:25 Discharged to home ambulatory. mb9 21:25 Condition: stable 21:25 Discharge instructions given to patient, Instructed on discharge instructions, follow up and referral plans. Demonstrated understanding of instructions, follow-up care. 21:25 Patient left the ED. mb9 Signatures: Dispatcher [employer] EDNY Luis Fleming PA PA cp Peltier, Brian, RN RN bp Benton, Danielle, RN RN db Galvan, Juliet [email or web address] Emma Arredondo RN RN [email or web address] Wilma Baker, PAS PAS ts1 Corrections: (The following items were deleted from the chart) 17:56 17:45 BP 108 / 70; Pulse 105bpm; Resp 18bpm; Pulse Ox 95%; db db
--- NOTE | 2023-03-19 20:39 | EDPHYS ---
Physician Documentation [facility] Name: Rachel Oconnor Age: 73 yrs Sex: Female : 1950 Arrival Date: 03/19/2023 Time: 15:56 Bed 14 Private MD: ED Physician Hector Ferguson HPI: 03/19 16:30 This 73 yrs old Female presents to ER via Ambulatory with complaints of Fall Injury. cp 16:30 Details of fall: The patient fell from an upright position, while standing, while cp walking. Onset: The symptoms/episode began/occurred yesterday. Associated injuries: The patient sustained injury to the chest, pain with breathing, pain with movement, tenderness. 16:30 Patient reports losing balance and falling forward striking chest against ground. No cp LOC. C/o continued chest pain, bilateral lower rib area. Historical: - Allergies: 16:34 Clindamycin; mb9 16:34 COFFEE; mb9 16:34 Ibuprofen; mb9 16:34 Kiwi (Actinidia Chinensis); mb9 16:34 PENICILLINS; mb9 16:34 relafen; mb9 16:34 shrimp; mb9 16:34 Soy; mb9 - PMHx: 16:34 Anxiety; Back pain; Thyroid problem; Hypertension; High Cholesterol; GERD; mb9 - PSHx: 16:34 None; mb9 - Immunization history:: Adult Immunizations up to date. - Social history:: Smoking status: Patient denies any tobacco usage or history of. ROS: 16:35 Constitutional: Negative for body aches, chills, fever, poor PO intake. cp 16:35 Eyes: Negative for injury, pain, redness, and discharge. cp 16:35 ENT: Negative for drainage from ear(s), ear pain, sore throat, difficulty swallowing, difficulty handling secretions. 16:35 Cardiovascular: Positive for chest pain, of the bilateral lower rib area. 16:35 Respiratory: Negative for cough, shortness of breath, wheezing. 16:35 Abdomen/GI: Negative for abdominal pain, vomiting, diarrhea, constipation. 16:35 Back: Negative for radiated pain. 16:35 Neuro: Negative for altered mental status, dizziness, headache, loss of consciousness, syncope, weakness. 16:35 All other systems are negative. Exam: 16:30 Constitutional: The patient appears in no acute distress, alert, awake, cp non-diaphoretic, non-toxic, well developed, well nourished, uncomfortable, overweight 16:30 Head/Face: Normocephalic, atraumatic. cp 16:30 Eyes: Periorbital structures: appear normal, Conjunctiva: normal, no exudate, no injection, Sclera: no appreciated abnormality, Lids and lashes: appear normal, bilaterally. 16:30 ENT: External ear(s): are unremarkable, Nose: is normal, Mouth: Lips: moist, Oral mucosa: pink and intact, moist, Posterior pharynx: Airway: no evidence of obstruction, patent. 16:30 Neck: C-spine: vertebral tenderness, is not appreciated, crepitus, is not appreciated, ROM/movement: is normal, is supple, without pain, no range of motions limitations. 16:30 Chest/axilla: Inspection: normal, Palpation: crepitus, is not appreciated, tenderness, that is moderate, of the bilateral lower rib area. 16:30 Cardiovascular: Rate: normal, Rhythm: regular, Edema: is not appreciated, JVD: is not appreciated. 16:30 Respiratory: the patient does not display signs of respiratory distress, Respirations: normal, no use of accessory muscles, no retractions, labored breathing, is not present, Breath sounds: are clear throughout, no decreased breath sounds, no stridor, no wheezing. 16:30 Abdomen/GI: Inspection: obese Bowel sounds: active, all quadrants, Palpation: soft, in all quadrants, nontender, in all quadrants. 16:30 Back: ROM is normal, vertebral tenderness, is not appreciated. 16:30 Skin: cellulitis, is not appreciated, no rash present. 16:30 Neuro: Orientation: to person, place \T\ time. Mentation: is normal, Motor: moves all fours, strength is normal. Vital Signs: 16:20 BP 133 / 100; Pulse 84; Resp 16; Temp 97.7; Pulse Ox 95% ; bp 17:25 BP 130 / 70; Pulse 72; Resp 18; Pulse Ox 98% on R/A; mb9 17:45 BP 118 / 76; Pulse 68; Resp 18; Pulse Ox 96% ; db 19:00 BP 109 / 53; Pulse 74; Resp 16; Pulse Ox 99% on R/A; mb9 21:24 BP 120 / 84; Pulse 80; Resp 18; Pulse Ox 98% on R/A; mb9 MDM: 16:22 Patient medically screened. cp 17:00 Differential diagnosis: contusion, fracture, multiple trauma. cp 20:38 Data reviewed: vital signs, nurses notes, lab test result(s), radiologic studies, CT cp scan, plain films. 20:38 Consideration of Admission/Observation Escalation of care including cp admission/observation considered. I considered the following discharge prescriptions or medication management in the emergency department Medications were administered in the Emergency Department. See MAR. Counseling: I had a detailed discussion with the patient and/or guardian regarding: the historical points, exam findings, and any diagnostic results supporting the discharge/admit diagnosis, lab results, radiology results, the need for outpatient follow up, an radiocommunications technician, to return to the emergency department if symptoms worsen or persist or if there are any questions or concerns that arise at home. Response to treatment: the patient's symptoms have markedly improved after treatment, and as a result, I will discharge patient. ED course: VSS. Pain improved with meds. No signs of respiratory distress. Will discharge to home for continued monitoring. 03/19 17:35 Order name: Basic Metabolic Panel; Complete Time: 18:22 03/19 18:22 Interpretation: Normal except: CL 108; GLUC 143; GFR 82. 03/19 17:35 Order name: CBC with Diff; Complete Time: 18:41 03/19 18:41 Interpretation: Reviewed. 03/19 17:35 Order name: Type And Screen; Complete Time: 18:41 03/19 16:23 Order name: XRAY Ribs BILATERAL w/chest; Complete Time: 17:34 03/19 17:35 Order name: CT Chest, Abdomen, Pelvis - W/Contrast; Complete Time: 20:09 03/19 20:11 Interpretation: Report reviewed. 03/19 20:11 Order name: INCENTIVE SPIROMETRY 03/19 17:35 Order name: Labs collected and sent; Complete Time: 17:55 cp Administered Medications: 16:34 Drug: Acetaminophen PO 650 mg Route: PO; mb9 17:26 Follow up: Response: No adverse reaction mb9 17:51 Drug: fentaNYL (PF) IVP 25 mcg Route: IVP; Site: right antecubital; db 21:12 Drug: fentaNYL (PF) IVP 25 mcg Route: IVP; Site: right forearm; mb9 21:25 Follow up: Response: No adverse reaction mb9 Disposition Summary: 03/19/23 20:38 Discharge Ordered Location: Home cp Problem: new cp Symptoms: have improved cp Condition: Stable cp Diagnosis - Multiple fractures of ribs, bilateral, initial encounter for closed fracture cp Followup: cp - With: Private Physician - When: 2 - 3 days - Reason: Recheck today's complaints Discharge Instructions: - Discharge Summary Sheet cp - Rib Fracture cp - How to Use an Incentive Spirometer cp - Incentive Spirometer Record cp Forms: - Medication Reconciliation Form cp - Thank You Letter cp - Antibiotic Education cp - Prescription Opioid Use cp Addendum: 03/22/2023 11:58 Co-signature as Attending Physician, Hector Ferguson MD I reviewed the patient's care r n provided by the Advanced Practice Provider and agree with the diagnosis and treatment plan. Signatures: Dispatcher [employer] EDMS Hector Ferguson MD MD rn Page, Corey, PA PA cp Benton, Danielle, RN RN Emma Vela RN RN mb9
[2023-03-19 21:30] VITALS: TEMP 97.7
[2023-03-19 21:35] VITALS: BP 120/84; O2SAT 98
== END 2023-03-19 21:25 | disposition home or self-care (01) ==
LOC: ER 15:56
DX: S22.43XA Multiple fractures of ribs, bilateral, initial encounter for closed fracture (principal); I10 Essential (primary) hypertension; Z88.0 Allergy status to penicillin; Z88.3 Allergy status to other anti-infective agents; Z88.6 Allergy status to analgesic agent; Z88.8 Allergy status to other drugs, medicaments and biological substances; Z91.013 Allergy to seafood; Z91.018 Allergy to other foods
CPT/HCPCS: 85025; 80048; 36415; 86900; 86850; 86901; 71260; 74177; 71111; 99284; Q9967; J3010 ×2